=== PATIENT | male | born 1985 | race African-American/Black ===

== ENCOUNTER 2023-11-21 10:38 | Inpatient (IN) | payer BC, SELFPAY ==
[2023-11-21] VITALS (8 sets, daily range): BP systolic 150–170; BP diastolic 101–115; PULSE 76–101; RESP 13–20; TEMP 36.3–36.6; O2SAT 98–100; BMI 33.5
--- NOTE | ~2023-11-21 | MR_ITS ---
EXAMINATION: MR brain/brain stem wo/w con DATE: 11/22/2023 13:31 INDICATION: Arm and leg weakness with paresthesias. TECHNIQUE: Magnetic resonance imaging (MRI) of the brain and brainstem was performed without and with 20 mL MultiHance intravenous contrast. COMPARISON: Head CT 11/21/2023 FINDINGS: There is no intracranial hemorrhage, acute infarction, or abnormal intracranial mass lesion . The ventricles are normal in size. There is a mucous retention cyst in left sphenoid sinus. The orb its are normal. The mastoid air cells are normal. IMPRESSION: 1. Normal brain. Reviewed, dictated and finalized at location A. IMPRESSION: 1. Normal brain.
--- NOTE | ~2023-11-21 | MR_ITS ---
EXAMINATION: MR lumbar spine wo/w con DATE: 11/22/2023 13:31 INDICATION: Arm and leg weakness. Paresthesias. TECHNIQUE: Magnetic resonance imaging (MRI) of the lumbar spine was performed without and with 20 mL MultiHance intravenous contrast. COMPARISON: None FINDINGS: Bone alignment is normal. Vertebral body heights and intervertebral disc heights are normal . The distal spinal cord signal intensity is normal. The conus medullaris is at L1. The following dis c levels are specifically discussed: L1-L2: The disc does not extend beyond the endplate margin. There is mild bilateral facet joint osteo arthritis. There is no neural foraminal stenosis. There is no central canal stenosis. L2-L3: There is a left foraminal protrusion. There is mild bilateral facet joint osteoarthritis. Ther e is mild left neural foraminal stenosis. There is no central canal stenosis. L3-L4: The disc is mildly bulging. There is mild bilateral facet joint osteoarthritis. There is mild bilateral neural foraminal stenosis. There is no central canal stenosis. L4-L5: The disc is bulging. There is mild bilateral facet joint osteoarthritis. There is mild bilater al neural foraminal stenosis. There is no central canal stenosis. L5-S1: The disc is bulging. There is severe right and moderate left facet joint osteoarthritis. There is mild bilateral neural foraminal stenosis. There is mild central canal stenosis. IMPRESSION: 1. Mild lumbar spondylosis. Reviewed, dictated and finalized at location A. IMPRESSION: 1. Mild lumbar spondylosis.
--- NOTE | ~2023-11-21 | CT_ITS ---
EXAMINATION: CT cervical spine wo con DATE: 11/21/2023 11:17 INDICATION: Arm weakness. Numbness in the hands and feet. TECHNIQUE: Computed tomography (CT) of the cervical spine was performed without intravenous contrast. Automated exposure control and iterative reconstruction technique were employed. The dose-length pro duct was 636.83 mGy-cm. COMPARISON: None FINDINGS: There is 3 degrees levocurvature of cervical spine. There is mild kyphosis of cervical spin e. Vertebral body heights are normal. There is moderately decreased disc height at C2-C3 and mildly d ecreased disc height at C4-C5 and C5-C6. The following disc levels are specifically discussed: C2-C3: There is mild bilateral uncovertebral joint osteoarthritis. There is mild bilateral facet join t osteoarthritis. There is mild left neural foraminal stenosis. There is mild central canal stenosis. C3-C4: There is mild bilateral uncovertebral joint osteoarthritis. There is no facet joint osteoarthr itis. There is no neural foraminal stenosis. There is no central canal stenosis. C4-C5: There is no uncovertebral joint osteoarthritis. There is no facet joint osteoarthritis. There is no neural foraminal stenosis. There is no central canal stenosis. C5-C6: There is no uncovertebral joint osteoarthritis. There is mild bilateral facet joint osteoarthr itis. There is no neural foraminal stenosis. There is no central canal stenosis. C6-C7: There is no uncovertebral joint osteoarthritis. There is no facet joint osteoarthritis. There is no neural foraminal stenosis. There is no central canal stenosis. C7-T1: There is no uncovertebral joint osteoarthritis. There is mild bilateral facet joint osteoarthr itis. There is no neural foraminal stenosis. There is no central canal stenosis. IMPRESSION: 1. Mild cervical spondylosis. Reviewed, dictated and finalized at location A.
--- NOTE | ~2023-11-21 | XR_ITS ---
EXAMINATION: XR lumbar puncture diagnostic DATE: 11/23/2023 14:17 INDICATION: Neuromuscular weakness. TECHNIQUE: The procedure including the risks, benefits, and alternatives was discussed with the patie nt. Risks discussed included spinal headache, cerebrospinal fluid leak, bleeding, and infection. The patient understood the risks and agreed to proceed. A timeout was performed to verify the patient' s name, date of , and procedure to be performed. The skin overlying the L3-L4 level was prepped and draped in usual sterile fashion. Subcutaneous 1% lidocaine was used for local anesthesia. A 20 gauge spinal needle was advanced under fluoroscopic guidance. The needle was removed and the entry s ite was cleaned and dressed. There were no immediate complications. Fluoroscopy exposure time was 0. 1 minutes. The total number of images was 1. FINDINGS: Real-time fluoroscopy demonstrates the needle at the L3-L4 level. The opening pressure was 18 cm water (Normal range is variably defined as 6-20 cm water and up to 25 cm water in obese patient s. Pressure >25 cm water is one of the modified Dandy criteria for idiopathic intracranial hypertensi on). 14 mL of clear, colorless fluid was collected in 4 tubes. IMPRESSION: 1. Successful fluoro-guided lumbar puncture. Reviewed, dictated and finalized at location A.
--- NOTE | ~2023-11-21 | MR_ITS ---
EXAMINATION: MR thoracic spine wo/w con DATE: 11/22/2023 13:31 INDICATION: Arm and leg weakness with paresthesias. TECHNIQUE: Magnetic resonance imaging (MRI) of the thoracic spine was performed without and with 20 m L MultiHance intravenous contrast. COMPARISON: None FINDINGS: There is 5 degrees levocurvature of thoracic spine. There is mild chronic anterior wedging of T7-T12 vertebral bodies. Intervertebral disc heights are normal. The discs do not extend beyond th e endplate margins. There is multilevel mild facet joint osteoarthritis. No neural foraminal stenosis or central canal stenosis. The spinal cord signal intensity is normal. IMPRESSION: 1. Mild thoracic facet joint osteoarthritis. Reviewed, dictated and finalized at location A.
--- NOTE | ~2023-11-21 | MR_ITS ---
EXAMINATION: MR cervical spine wo/w con DATE: 11/22/2023 13:31 INDICATION: Arm and leg weakness with paresthesias. TECHNIQUE: Magnetic resonance imaging (MRI) of the cervical spine was performed without and with 20 m L MultiHance intravenous contrast. COMPARISON: CT cervical spine 11/21/2023 FINDINGS: There is mild kyphosis of upper cervical spine. Vertebral body heights and intervertebral d isc heights are normal. The spinal cord signal intensity is normal. The following disc levels are spe cifically discussed: C2-C3: There is a central extrusion. There is mild bilateral uncovertebral joint osteoarthritis. Ther e is mild bilateral facet joint osteoarthritis. There is mild left neural foraminal stenosis. There i s mild central canal stenosis with ventral indentation of the spinal cord. C3-C4: The disc does not extend beyond the endplate margin. There is no uncovertebral joint osteoarth ritis. There is no facet joint osteoarthritis. There is no neural foraminal stenosis. There is no matilda tral canal stenosis. C4-C5: The disc does not extend beyond the endplate margin. There is no uncovertebral joint osteoarth ritis. There is mild bilateral facet joint osteoarthritis. There is no neural foraminal stenosis. The re is no central canal stenosis. C5-C6: The disc does not extend beyond the endplate margin. There is no uncovertebral joint osteoarth ritis. There is mild right facet joint osteoarthritis. There is no neural foraminal stenosis. There i s no central canal stenosis. C6-C7: The disc does not extend beyond the endplate margin. There is mild bilateral uncovertebral luann nt osteoarthritis. There is mild bilateral facet joint osteoarthritis. There is mild right neural for aminal stenosis. There is no central canal stenosis. C7-T1: The disc does not extend beyond the endplate margin. There is no uncovertebral joint osteoarth ritis. There is mild bilateral facet joint osteoarthritis. There is no neural foraminal stenosis. The re is no central canal stenosis. IMPRESSION: 1. Mild cervical spondylosis. Reviewed, dictated and finalized at location A.
--- NOTE | ~2023-11-21 | CT_ITS ---
EXAMINATION: CT brain wo con DATE: 11/21/2023 11:16 INDICATION: Numbness in the hands and feet. TECHNIQUE: Computed tomography (CT) of the head was performed without intravenous contrast. The mA wa s adjusted according to patient size. Iterative reconstruction technique was employed. The dose-lengt h product was 681.00 mGy-cm. COMPARISON: None FINDINGS: There is no intracranial hemorrhage, acute infarction, or abnormal intracranial mass lesion . The ventricles are normal in size. There is mucosal thickening in the paranasal sinuses. The orbits are normal. The mastoid air cells are normal. IMPRESSION: 1. Normal brain. Reviewed, dictated and finalized at location A. IMPRESSION: 1. Normal brain.
[2023-11-21 11:34] LABS: Basophils Percent Auto 0.4 % (0.2-1.2); Eosinophils Percent Auto 0.1 % (0-4.4); Hematocrit 49.8 % (42.0-52.0); Hemoglobin 16.2 g/dL (14.0-18.0); Immature Granulocyte Absolute 0.03 K/mm3 (0.00-0.031); Immature Granulocyte Percent A 0.3 % (0-0.5); Lymphocytes Absolute Auto 1.27 K/mm3 (0.9-3.2); Lymphocytes Percent Auto 12.3 % (18.3-44.2); Mean Corpuscular HGB Conc 32.5 g/dl (32-36); Mean Corpuscular Hemoglobin 27.6 pg (26-34); Mean Platelet Volume 11.8 fl (7.4-10.4); Monocytes Absolute Auto 0.7 K/mm3 (0.1-0.6); Monocytes Percent Auto 6.8 % (2.6-8.5); Neutrophils Absolute Auto 8.3 K/mm3 (1.3-6.7); Neutrophils Percent Auto 80.1 % (45.5-73.1); Platelet Count Result 199 k/mm3 (150-375); Red Blood Count 5.86 M/mm3 (4.6-6.20); Red Cell Distribution Width 14.3 % (11.5-14.5); White Blood Count 10.3 K/mm3 (4.5-10.0)
[2023-11-21 11:47] LABS: Alanine Aminotransferase 52 U/L (6-50); Albumin Level 4.4 g/dL (3.5-5.1); Alkaline Phosphatase 74 U/L (38-126); Anion Gap 6 mmol/L (8-16); Aspartate Amino Transferase 52 U/L (17-59); Blood Urea Nitrogen 16 mg/dL (9-20); Calcium 9.6 mg/dL (8.4-10.2); Carbon Dioxide 25 mmol/L (22-30); Chloride 107 mmol/L (98-107); Estimated CRCL calculation 104 ml/min; Estimated Glomerular Filt Rate > 60; Glucose 91 mg/dL (65-110); Magnesium 2.2 mg/dL (1.6-2.3); Potassium 4.4 mmol/L (3.4-5.0); Sodium 138 mmol/L (137-145)
--- NOTE | 2023-11-21 13:07 | ED.NEUROSD ---
HPI - Neuro Symptoms/Deficit General Chief Complaint: Neuro Symptoms/Deficit Stated Complaint: numbness/tingling arms and legs Time Seen by Provider: 11/21/23 10:49 History of Present Illness HPI Narrative: Patient is a 38-year-old male who presents ER with numbness and weakness. Patient reports for last week he has been having tingling sensation in his hands and feet bilaterally. Was evaluated at [facility] without any abnormality being found. Patient is not diabetic. He reports he has become more weak recently and he fell today. He is unable to get himself up off the ground did weakness and had to crawl to a chair to be able to get up off the floor. He feels mostly weak in his hips and his upper arms. No family history of MS. Related Data Home Medications Medication Instructions Recorded Confirmed losartan 100 mg tablet 100 mg PO DAILY 11/21/23 11/21/23 Allergies Allergy/AdvReac Type Severity Reaction Status Date / Time No Known Allergies Allergy Verified 11/21/23 14:33 Review of Systems Review of Systems: All systems reviewed & are unremarkable except as noted in HPI and below Constitutional: Constitutional: Reports no additional constitutional complaints ENT: Reports system reviewed and no additional complaints, except as documented Cardiovascular: Cardiovascular: Reports no additional cardiovascular complaints Respiratory: Respiratory: Reports no additional respiratory complaints Gastrointestinal: Gastrointestinal: Reports no additional gastrointestinal complaints Musculoskeletal: Musculoskeletal: Denies arthralgias and Denies joint swelling Comments: Arm and leg weakness Neurologic: Denies syncope, Denies headache(s), Denies focal weakness and Reports weakness Comments: paresthesias of the hands and feet [facility] Past Medical History Medical History (Updated 11/21/23 @ 17:57 by Luke Varela MD) Hypertension Surgical History Surgical History (Updated 11/21/23 @ 15:19 by Jane Nichols PA-C) No history of previous surgery Family History Family History Father Diabetes mellitus Hypertension Mother Hypertension Social History Social History (Updated 11/21/23 @ 15:19 by Jane Nichols PA-C) Social History: Surrogate medical decision maker: Ilda Lozano, mother. Code status: Full code. Smoking status: Never smoker Alcohol intake: current Drinks per week: 4 Substance use: never Do You Feel Safe in your Home?: Yes Lack of Transportation: No Lack of Food: Never True Current Housing: I Have Housing Concerned About Future Housing: No Difficulty Paying Gas/Electric Bills: No Difficulty Paying for Meds: No Currently Unemployed: No Education: Associate Degree Difficulty w/ Childcare or Family Care: No Additional living arrangements comments: Lives in [place]. Additional occupation/education comments: Works for [employer]. Spiritual care concerns: No Exam Narrative: GENERAL: Well-appearing, well-nourished, and in no acute distress. HEAD: Normocephalic, atraumatic. ENT: Mucous membranes moist. NECK: Supple. CHEST: Clear to auscultation. No respiratory distress. HEART: Regular rate and rhythm. Normal peripheral pulses. ABDOMEN: Soft, nontender, nondistended EXTREMITIES: Normal range of motion. No edema. SKIN: Warm, dry, no rash. NEURO: Alert and oriented x3. no decreased pinprick sensation to the hands or feet. Patient does have 3/5 strength in the hands with gripping, the elbows with flexion extension, and in the hips. Normal strength at the ankles and knees bilaterally. PSYCH: Normal mood and affect. Course Course Emergency Course: Patient with concerning story. Will admit for observation. He will need MRI of his brain and spine. He may require Neurology consultation tomorrow when Neurology is present. Vital Signs Vital signs: V
--- NOTE | 2023-11-21 13:27 | PC.NURSE ---
Spoke with MRI to confirm pt is being admitted.
--- NOTE | 2023-11-21 14:11 | ADMGEN ---
This patient, Anton Lozano, was admitted to 2 Medical Room 260-. Patient/family oriented to hospital policies and general routines including ID bracelet, bed and alarms, visiting hours, pain management, procedures, bathroom and other care routines, personal items, smoking policy, room service/diet, and visiting hours. Information on how to activate the Rapid Response Team has been discussed. Patient/Family are encouraged to report perceived risks to care and to ask questions if they do not understand what they are told or what they should do.
--- NOTE | 2023-11-21 15:16 | PM.IMHP ---
H&P: HPI History of Present Illness Date/Time: 11/21/23 15:15 Chief Complaint: Muscle weakness and numbness/tingling in the hands and feet. Narrative: This is a very pleasant 38-year-old male with hypertension who presented to the emergency department for evaluation of muscle weakness and numbness/tingling in hands and feet. The patient provides the following history. About 2 weeks ago he woke from sleep and noticed that his hands were tingling. He then stood up out of bed at which time he realized that his toes were tingling on both feet as well. About 1 week thereafter he noticed that his hands were a bit weak (for instance he was having difficulties with writing and opening bottles) and that his upper legs seemed to be getting weak. For instance 1 day he was trying to get out of the shower and had difficulties getting his legs up over the bathtub due to weakness. He has had 2 falls and other near falls due to weakness in his legs. He has noticed some stiffness in his leg muscles and hands as well. Hamstrings have been twitching and cramping. He has perhaps mild aching in the muscles but is difficult for him to distinguish that from the paresthesias and weakness. He is afraid that he will fall with walking due to weakness and stiffness. He was evaluated at a local urgent care and in the ED at [facility] for the symptoms and he was told to follow-up with his doctor but unfortunately he cannot get an appointment until sometime in January. He has not had any lab work or imaging done as of yet. He had COVID in April 2023 with lingering fatigue for several weeks but that completely resolved. He has not had any recent travel and denies tick and mosquito bites. He has not had any recent falls or trauma. He has mild neck pain and right-sided headache but that is nothing significant or necessarily new for him. He has been experiencing sweats and reports that his hands and feet are cool and diaphoretic. Appetite has not been great however he admits that he is worried about the symptoms he has been experiencing and thinks it is due to that. He denies urinary retention and bowel incontinence. There is no saddle anesthesia. He denies bulbar symptoms. He denies chest and pleuritic pain, palpitations, fluttering, sensations of racing heart. No rashes or joint pain or swelling. No recent vaccinations. No personal or family history of malignancy, multiple sclerosis, autoimmune diseases, or muscular dystrophy. Review of Systems Review of Systems: Twelve systems were reviewed and are negative except for as per HPI. [facility] Past Medical History Medical History (Updated 11/21/23 @ 17:57 by Luke Varela MD) Hypertension Surgical History Surgical History (Updated 11/21/23 @ 21:31 by Jane Nichols PA-C) History of wisdom tooth extraction Family History Family History Father Diabetes mellitus Hypertension Mother Hypertension Social History Social History (Updated 11/21/23 @ 15:19 by Jane Nichols PA-C) Social History: Surrogate medical decision maker: Ilda Lozano, mother. Code status: Full code. Smoking status: Never smoker Alcohol intake: current Drinks per week: 4 Substance use: never Do You Feel Safe in your Home?: Yes Lack of Transportation: No Lack of Food: Never True Current Housing: I Have Housing Concerned About Future Housing: No Difficulty Paying Gas/Electric Bills: No Difficulty Paying for Meds: No Currently Unemployed: No Education: Associate Degree Difficulty w/ Childcare or Family Care: No Additional living arrangements comments: Lives in [place]. Additional occupation/education comments: Works for [employer]. Spiritual care concerns: No Meds Home Medications and Allergies Home Medications Medication Instructions Recorded Confirmed Type losartan 100 mg tablet 100 mg PO DAILY 11/21/23 11/21/23 Hist
--- NOTE | 2023-11-21 15:21 | ECHO_ITS ---
Patient Info Name: Anton Lozano Age: 38 years : 1985 Gender: Male Ht: 71 in Wt: 260 lbs BSA: 2.47 m2 HR: 78 bpm BP: 170 / 107 mmHg Technical Quality: Fair Exam Date: 11/21/2023 4:18 PM Exam Location: Echo Lab Exam Room: 260 Patient Status: Inpatient Admit Date: 11/21/2023 Staff Ordering Physician: Jane Nichols PA-C Attending Provider: Fritz Skinner DO Referring Physician: Magdalena BHAKTA; Exam Type: CA echo doppler color flow Study Info Indications - htn paresthsis Complete two-dimensional, color flow and Doppler transthoracic echocardiogram is performed. Summary 1. Complete two-dimensional, color flow and Doppler transthoracic echocardiogram is performed. 2. Left ventricular chamber dimension is normal. 3. Left ventricular systolic function is normal, estimated at 65-70%. 4. There is moderate concentric increased left ventricular wall thickness. 5. The left ventricular diastolic function is grade I diastolic dysfunction. 6. E/e' 10 is mildly elevated. 7. There is trace tricuspid valve regurgitation. 8. No pulmonary hypertension, estimated pulmonary arterial systolic pressure is 39 mmHg. Left Ventricle E/e' 10 is mildly elevated. Left ventricular chamber dimension is normal. Left ventricular systolic function is normal, estimated at 65-70%. There is moderate concentric increased left ventricular wall thickness. The left ventricular diastolic function is grade I diastolic dysfunction. Right Ventricle Right ventricular chamber dimension is normal. Right ventricular systolic function is normal. Left Atria Left atrial chamber dimension is normal. Right Atria Right atrial chamber dimension is normal. Aortic Valve The aortic valve is trileaflet. There is no aortic valve stenosis. There is no aortic valve regurgitation. Pulmonic Valve There is no pulmonic regurgitation. Mitral Valve There is no mitral valve stenosis. There is no mitral valve regurgitation. Tricuspid Valve There is trace tricuspid valve regurgitation. No pulmonary hypertension, estimated pulmonary arterial systolic pressure is 39 mmHg. Pericardium/Pleural There is no pericardial effusion. Inferior Vena Cava Normal inferior vena cava with >50% collapse upon inspiration consistent with normal right atrial pressure, 5 mmHg. Aorta The aortic root size at the sinus of Valsalva is normal. Left Ventricular Outflow Tract Name Value Normal LVOT 2D LVOT Diameter 2.1 cm LVOT Doppler LVOT Peak Gradient 5 mmHg LVOT Mean Gradient 4 mmHg LVOT VTI 21 cm LVOT VTI/AV VTI Ratio 0.9 LVOT Stroke Volume 75 ml LVOT CO 20.2 l/min LVOT CI 8.2 l/min/m2 Pulmonic Valve Name Value Normal RVOT Doppler RVOT Peak Gradient 2 mmHg
[2023-11-21 15:45] LABS: CRP < 0.5 mg/dL (<1.0); Creatine Kinase 415 U/L (55-170); Lactate Dehydrogenase 206 U/L (120-246)
[2023-11-21 16:44] LABS: Erythrocyte Sedimentation Rate 6 mm/hr (0-20)
[2023-11-22] VITALS (11 sets, daily range): BP systolic 125–163; BP diastolic 81–109; PULSE 68–102; RESP 16–20; TEMP 36.4–37; O2SAT 94–100
--- NOTE | 2023-11-22 08:02 | PM.IMPN ---
Progress Note: A&P Assessment and Plan (1) Paresthesias: Code(s): R20.2 - Paresthesia of skin Status: Acute Assessment and Plan: 11/22/2023: patient reporting weakness and numbness in his hands and feet for the past 2 weeks neurology consult plan for MRI of brain/ brainstem, cervical spine, lumbar spine, and thoracic spine. Aldolase pending, CK for 15, C reactive protein less than 0.5, lactate dehydrogenase 206, TSH 1.[address] negative cervical spine CT showing mild cervical spondylosis continuous cardiac monitoring neurochecks Q 4 hours Will check HIV panel, Lipid panel, Hgb A1C, Magnesium, lyme disease and west nile virus Could benefit from lumbar puncture, will defer to Neurology for this. Patient reports night sweats, headache, neck stiffness, weakness, numbness and tingling in feet and hands. PT and OT ordered to eval and treat (2) Muscle weakness: Code(s): M62.81 - Muscle weakness (generalized) Status: Acute Assessment and Plan: see above (3) Urinary retention: Code(s): R33.9 - Retention of urine, unspecified Status: Acute Assessment and Plan: 11/22/2023: Patient unable to void this morning, nursing did bladder scan and noted 275ml of urine in bladder. They did straight cath him x1 and met a little resistance at the prostate. Continue to monitor for urinary retention Consider flomax Could be due to enlarged prostate. (4) Hypertension: Code(s): I10 - Essential (primary) hypertension Status: Chronic Assessment and Plan: 11/22/2023: blood pressure ranging 140/90 to 152/103 continue losartan 100 mg daily Time Spent With Patient Time with patient: 25 - 35 minutes Subjective Date/time seen: 11/22/23 08:02 Interval history: This is a 38-year-old male who presented to the hospital with muscle weakness and numbness/ tingling in the hands and feet. Patient reporting increased weakness of the last 2 weeks. He has sought care at [facility] and in urgent care for similar symptoms. Patient states that he noticed weakness over the past 2 weeks that has progressively gotten worse. He states that it feels like his legs will give out on him. He has associated numbness and tingling in his hands and feet as well. He denies any recent illness, fever chills, lightheadedness, dizziness, visual changes, nausea, vomiting, diarrhea, abdominal pain, chest pain, shortness of breath. He denies any tick or mosquito bites. He denies any pets in the home. 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 He does state that the back of his neck has been feeling tight and has noticed lower back pain on occasion. Workup in the hospital includes head CT which shows a normal brain. Cervical spine CT which shows mild cervical spondylosis. echocardiogram showing normal LV systolic function with an estimated EF of 65-70%, grade 1 diastolic dysfunction. initial labs show a white blood cell count of 10.3, ALT 52, total CK 415, TSH 1.79, Aldolase is pending. Plan for MRI of the brain and brainstem, cervical spine, lumbar spine, thoracic spine today. Neurology consulted. Blood pressures ranging 150/115-170/101. Patient takes Losartan 100mg daily for his hypertension and he was continued on that here. Blood pressure down to 140/90. Nursing reported that he was having trouble with urinating today. They did a bladder scan that noted about 275ml of urine in the bladder. They did do a straight cath on him and met a little resistance going in but was able to drain his bladder. We will likely start flomax on him after Neuro sees patient for urinary retention. Review of Systems Review of Systems: Twelve systems were reviewed and are negative except for as per HPI. All systems reviewed & are unremarkable except as noted in HPI and below Constitutional: Constitutional: Reports as per HPI and Reports no additional constitutional complaints Eyes: Eyes: Reports a
[2023-11-22] MEDS: LOSARTAN POTASSIUM 100 MG TABLET PO (08:07)
[2023-11-22 09:37] LABS: Basophils Absolute Auto 0.1 K/mm3 (0.0-0.1); Basophils Percent Auto 0.5 % (0.2-1.2); Eosinophils Absolute Auto 0.1 K/mm3 (0-0.3); Eosinophils Percent Auto 0.6 % (0-4.4); Hematocrit 50.1 % (42.0-52.0); Immature Granulocyte Absolute 0.02 K/mm3 (0.00-0.031); Immature Granulocyte Percent A 0.2 % (0-0.5); Lymphocytes Absolute Auto 2.32 K/mm3 (0.9-3.2); Lymphocytes Percent Auto 24.7 % (18.3-44.2); Mean Corpuscular HGB Conc 31.9 g/dl (32-36); Mean Corpuscular Hemoglobin 27.5 pg (26-34); Mean Corpuscular Volume 86.1 fl (80-100); Mean Platelet Volume 11.7 fl (7.4-10.4); Monocytes Absolute Auto 0.8 K/mm3 (0.1-0.6); Monocytes Percent Auto 8.7 % (2.6-8.5); Neutrophils Absolute Auto 6.1 K/mm3 (1.3-6.7); Neutrophils Percent Auto 65.3 % (45.5-73.1); Platelet Count Result 194 k/mm3 (150-375); Red Blood Count 5.82 M/mm3 (4.6-6.20); Red Cell Distribution Width 14.6 % (11.5-14.5); White Blood Count 9.4 K/mm3 (4.5-10.0)
[2023-11-22 10:06] LABS: Alanine Aminotransferase 51 U/L (6-50); Albumin Level 4.3 g/dL (3.5-5.1); Alkaline Phosphatase 72 U/L (38-126); Anion Gap 6 mmol/L (8-16); Aspartate Amino Transferase 60 U/L (17-59); Bilirubin,Total 1.3 mg/dL (0.2-1.3); Blood Urea Nitrogen 20 mg/dL (9-20); Calcium 9.5 mg/dL (8.4-10.2); Carbon Dioxide 27 mmol/L (22-30); Chloride 106 mmol/L (98-107); Estimated CRCL calculation 85 ml/min; Estimated Glomerular Filt Rate > 60; Glucose 103 mg/dL (65-110); Potassium 4.3 mmol/L (3.4-5.0); Sodium 139 mmol/L (137-145)
--- NOTE | 2023-11-22 10:15 | WPDNEURCNPN ---
Consult date: 11/22/23 HPI: Anton Lozano is a 38 year old male has been admitted to the hospital through the emergency room with the complaints of numbness and weakness in his hands and feet bilaterally. Reportedly he was evaluated centers with hospital where no abnormalities were found and patient is also not diabetic. Recently he has become more weak and day of visit to the ER he fell down and was unable to get himself up off the ground and had to crawl to a chair feels mostly weak in his hips and in his upper extremities. He has been taking losartan 100mg daily, he is not allergic to any medications, he does have ongoing history of hypertension, has never had any surgery, he has never smoker but currently alcohol intake or 4 drinks per week, initial exam in the emergency room documented the weakness in the hands and also in the hips. His vital signs were normal except pulse rate of 101 blood pressure of 153/103 and repeat 170/107, CBC was normal, BMP was normal, and ALT was borderline 52, CT scan of cervical spine revealed mild cervical spondylosis and CT of the head was normal with no hydrocephalus or subdurals. Subsequently it was documented that about 2 weeks ago he woke up from sleep and noted his hands were tingling and when he stood up out of the bed his toes were tingling on both feet subsequently he was having difficulties in writing and opening bottles and also started having trouble getting out of the shower and getting his legs up over the bathtub he has fallen twice he has had patient has done did complain of mild neck pain and right-sided headache complain of his hand being diaphoretic and cold he gave no history of bowel or bladder incontinence and no history of saddle anaesthesia, PMFSH Past Medical History Medical History (Updated 11/21/23 @ 17:57 by Luke Varela MD) Hypertension Surgical History Surgical History (Updated 11/21/23 @ 21:31 by Jane Nichols PA-C) History of wisdom tooth extraction Family History Family History Father Diabetes mellitus Hypertension Mother Hypertension Social History Social History (Updated 11/21/23 @ 15:19 by Jane Nichols PA-C) Social History: Surrogate medical decision maker: Ilda Lozano, mother. Code status: Full code. Smoking status: Never smoker Alcohol intake: current Drinks per week: 4 Substance use: never Do You Feel Safe in your Home?: Yes Lack of Transportation: No Lack of Food: Never True Current Housing: I Have Housing Concerned About Future Housing: No Difficulty Paying Gas/Electric Bills: No Difficulty Paying for Meds: No Currently Unemployed: No Education: Associate Degree Difficulty w/ Childcare or Family Care: No Additional living arrangements comments: Lives in [place]. Additional occupation/education comments: Works for [employer]. Spiritual care concerns: No Meds Home Medications and Allergies Home Medications Medication Instructions Recorded Confirmed Type losartan 100 mg tablet 100 mg PO DAILY 11/21/23 11/21/23 History Allergies Allergy/AdvReac Type Severity Reaction Status Date / Time No Known Allergies Allergy Verified 11/21/23 14:33 Vital Signs Vital Signs - 24 hr 11/21/23 10:40 11/21/23 11:00 11/21/23 11:30 Temperature 36.3 C L Pulse Rate 101 H 85 80 Respiratory Rate 20 16 13 Blood Pressure 153/103 H 161/114 H 160/108 H Pulse Oximetry 100 99 98 Oxygen Delivery Room Air 11/21/23 13:23 11/21/23 14:20 11/21/23 16:30 Temperature 36.4 C Pulse Rate 78 84 76 Respiratory Rate 20 16 Blood Pressure 150/115 H 170/107 H Pulse Oximetry 100 98 Oxygen Delivery 11/21/23 21:32 11/21/23 20:00 11/21/23 20:00 Temperature 36.6 C Pulse Rate 84 79 Respiratory Rate 18 Blood Pressure 163/101 H Pulse Oximetry 98 Oxygen Delivery Room Air 11/22/23 00:00 11/22/23 04:00 11/22/23 05:29
--- NOTE | 2023-11-22 11:36 | PCPTNOTE ---
Attempted PT evaluation, pt off the unit for MRI. Will follow.
[2023-11-22 12:35] LABS: Magnesium 2.3 mg/dL (1.6-2.3)
[2023-11-23] VITALS (11 sets, daily range): BP systolic 137–159; BP diastolic 82–107; PULSE 71–105; RESP 16–24; TEMP 36–36.4; O2SAT 97–99
[2023-11-23 05:46] LABS: Basophils Percent Auto 0.4 % (0.2-1.2); Eosinophils Absolute Auto 0.1 K/mm3 (0-0.3); Eosinophils Percent Auto 0.7 % (0-4.4); Hematocrit 49.8 % (42.0-52.0); Hemoglobin 15.8 g/dL (14.0-18.0); Immature Granulocyte Absolute 0.04 K/mm3 (0.00-0.031); Immature Granulocyte Percent A 0.5 % (0-0.5); Lymphocytes Absolute Auto 2.29 K/mm3 (0.9-3.2); Lymphocytes Percent Auto 26.8 % (18.3-44.2); Mean Corpuscular HGB Conc 31.7 g/dl (32-36); Mean Corpuscular Hemoglobin 27.7 pg (26-34); Mean Corpuscular Volume 87.4 fl (80-100); Mean Platelet Volume 11.3 fl (7.4-10.4); Monocytes Absolute Auto 0.8 K/mm3 (0.1-0.6); Monocytes Percent Auto 9.6 % (2.6-8.5); Neutrophils Absolute Auto 5.3 K/mm3 (1.3-6.7); Platelet Count Result 198 k/mm3 (150-375); Red Cell Distribution Width 14.4 % (11.5-14.5); White Blood Count 8.5 K/mm3 (4.5-10.0)
[2023-11-23 05:50] LABS: Alanine Aminotransferase 52 U/L (6-50); Albumin Level 4.2 g/dL (3.5-5.1); Alkaline Phosphatase 67 U/L (38-126); Anion Gap 4 mmol/L (8-16); Aspartate Amino Transferase 48 U/L (17-59); Bilirubin,Total 1.2 mg/dL (0.2-1.3); Blood Urea Nitrogen 19 mg/dL (9-20); Calcium 9.7 mg/dL (8.4-10.2); Carbon Dioxide 29 mmol/L (22-30); Chloride 106 mmol/L (98-107); Cholesterol 214 mg/dL (0-200); Estimated CRCL calculation 78 ml/min; Estimated Glomerular Filt Rate > 60; Glucose 90 mg/dL (65-110); HDL Direct 39 mg/dL; Potassium 4.4 mmol/L (3.4-5.0); Sodium 139 mmol/L (137-145); Triglycerides 126 mg/dL (<150)
[2023-11-23 06:01] LABS: LDL Cholesterol Direct 132 mg/dL
[2023-11-23 06:30] LABS: HIV 1/2 Ab P24 Ag Result Negative (Negative)
[2023-11-23] MEDS: LOSARTAN POTASSIUM 100 MG TABLET PO (07:59)
--- NOTE | 2023-11-23 11:21 | WPDNEURCNPN ---
Assessment and Plan Assessment and plan (1) Muscle weakness: Code(s): M62.81 - Muscle weakness (generalized) Status: Acute Plan History of progressive weakness with negative MRI of the brain cervical thoracic and lumbar spine will need the spinal fluid studies to rule out the possibility of acute versus subacute infection or else the demyelinating phenomena or further recommendations will be made accordingly. Consult date: 11/23/23 HPI: Anton Lozano is a 38 year old male Has been admitted to the hospital through the emergency room where he presented for the evaluation of muscle weakness , numbness and tingling sensation in hands and feet. Reportedly about 2 weeks ago he woke up from sleep and noted that his hands were tingling then stood up out of the bed at that time he realized that his toes were tingling as wel,l about 1 week thereafter he noted his hands were bit weaker as he was having difficulty with writing and opening bottles and upper legs also seem to be weak he was trying to get out of the shower and had difficulties getting his lower extremities over the bathtub due to the weakness and sustained 2 falls. He also complained of twitching and cramping in his lower extremities along with the aching sensation ,he went to the local urgent care at [facility], was advised to follow-up with But unfortunately could not get an appointment until sometimes in January ,he has not had any lab work or imaging as yet. He had COVID in April of 2023 with subsequent lingering fatigue sensation which has now completely resolved, he gave no history of recent or remote fall, did complain of mild neck discomfort and right-sided headache but not very significant his hands and feet are cool and diaphoretic he gave no history of bowel or bladder dysfunction, no history of difficulties in swallowing, no history of difficulties in controlling the bowel or numbness around that area. He is never a smoker drinks at least 4 drinks per week, not allergic to any medication and has been taking only losartan 100mg daily. on initial evaluation in the emergency room he was afebrile blood pressure 153/103 repeat 150/115 general physical exam was normal and neurological examination documented difficulties raising the upper extremities and lower extremities strength 4/5 negative Babinski bilaterally, CBC was normal ,BMP was normal ,hepatic enzymes with ALT 52 CT of the head negative CT of the cervical spine with cervical spondylosis ,considering the possibility of the space-occupying lesion versus the spinal cord involvement intrinsic disease or to rule out the possibility of the obvious tumor or demyelinating disease,mri were done, brain MRI was normal so as the lumbar spine MRI except mild lumbar spondylos ,cervical MRI revealed no intrinsic or extrinsic disease except the mild cervical spondylosis and thoracic MRI is negative as well. 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
[2023-11-23 12:33] LABS: Prothrombin Time 13.1 Seconds (11.1-14.7)
[2023-11-23 14:31] LABS: Glucose CSF 61 mg/dL (40-70); Total Protein CSF 50 mg/dL (12-60)
--- NOTE | 2023-11-23 14:54 | P.PNIM_ITS ---
Progress Note: A&P Assessment and Plan (1) Paresthesias: Code(s): R20.2 - Paresthesia of skin Status: Acute Assessment and Plan: * patient reporting weakness and numbness in his hands and feet for the past 2 weeks * neurology consulted - lumbar puncture with labs pending * MRI of brain/ brainstem, cervical spine, lumbar spine, and thoracic spine unrevealing * Aldolase pending, CK for 15, CRP less than 0.5, lactate dehydrogenase 206, TSH 1.79 * head CT negative * cervical spine CT showing mild cervical spondylosis * continuous cardiac monitoring * neurochecks Q 4 hours * HIV panel negative * Lipid panel elevated * Hgb A1C 5.0 Magnesium WNL * lyme disease and west nile virus pending * PT and OT ordered to eval and treat (2) Muscle weakness: Code(s): M62.81 - Muscle weakness (generalized) Status: Acute Assessment and Plan: see above (3) Urinary retention: Code(s): R33.9 - Retention of urine, unspecified Status: Acute Assessment and Plan: * Patient unable to void this morning, nursing did bladder scan and noted 275ml of urine in bladder. They did straight cath him x1 and met a little resistance at the prostate. * Continue to monitor for urinary retention * Consider Flomax * Could be due to enlarged prostate. (4) Hypertension: Code(s): I10 - Essential (primary) hypertension Status: Chronic Assessment and Plan: * continue losartan 100 mg daily (5) Hyperlipidemia: Code(s): E78.5 - Hyperlipidemia, unspecified Status: Acute Assessment and Plan: * lipid panel showed total cholesterol 214 * LDL 132 * triglycerides 126 * start on Lipitor 20 mg daily Subjective Date/time seen: 11/23/23 14:54 Interval history: Patient reports continued tingling sensation and difficulty with muscle strength in his hands and legs bilaterally. He denies any vision changes, pain or SOB or chest pain. Neurology is following and planning on a spinal tap today with labs from CSF pending. Review of Systems Review of Systems: All systems reviewed & are unremarkable except as noted in HPI and below Exam Narrative: General: In no acute distress, well nourished Head: atraumatic, no encephalopathy Eyes: EOMI, PERRLA, sclera clear, denies vision changes ENT: moist mucous membranes Neck: supple, no JVD, no adenopathy, trachea midline Cardiac:RRR. No murmur, gallops or friction rubs, peripheral pulses intact. Respiratory: Lungs clear to auscultation Gastrointestinal: soft, non-distended, non-tender, normoactive bowel sounds. Extremities: moves all extremities well, no edema, good ROM, strength 4/5 Skin: clean, dry, intact. No wounds or lesions. Neuro: Alert and oriented x4, cranial nerves intact, no neuro deficits. Psych: normal mood, normal affect, interactive Objective Data Vital Signs Vital Signs: Vital Signs - 24 hr 11/22/23 16:28 11/22/23 16:00 11/22/23 21:24 Temperature 97.7 F Pulse Rate 91 88 Respiratory Rate 20 Blood Pressure 145/109 H Pulse Oximetry 94 97 Oxygen Delivery Room Air 11/22/23 20:30 11/22/23 20:30 11/22/23 23:00 Temperature Pulse Rate 85 Respiratory Rate Blood Pressure 144/96 H Pulse Oximetry Oxygen Delivery Room Air
--- NOTE | 2023-11-23 14:54 | PM.IMPN ---
Progress Note: A&P Assessment and Plan (1) Paresthesias: Code(s): R20.2 - Paresthesia of skin Status: Acute Assessment and Plan: patient reporting weakness and numbness in his hands and feet for the past 2 weeks neurology consulted - lumbar puncture with labs pending MRI of brain/ brainstem, cervical spine, lumbar spine, and thoracic spine unrevealing Aldolase pending, CK for 15, CRP less than 0.5, lactate dehydrogenase 206, TSH 1.[address] negative cervical spine CT showing mild cervical spondylosis continuous cardiac monitoring neurochecks Q 4 hours HIV panel negative Lipid panel elevated Hgb A1C 5.0 Magnesium WNL lyme disease and west nile virus pending PT and OT ordered to eval and treat (2) Muscle weakness: Code(s): M62.81 - Muscle weakness (generalized) Status: Acute Assessment and Plan: see above (3) Urinary retention: Code(s): R33.9 - Retention of urine, unspecified Status: Acute Assessment and Plan: Patient unable to void this morning, nursing did bladder scan and noted 275ml of urine in bladder. They did straight cath him x1 and met a little resistance at the prostate. Continue to monitor for urinary retention Consider Flomax Could be due to enlarged prostate. (4) Hypertension: Code(s): I10 - Essential (primary) hypertension Status: Chronic Assessment and Plan: continue losartan 100 mg daily (5) Hyperlipidemia: Code(s): E78.5 - Hyperlipidemia, unspecified Status: Acute Assessment and Plan: lipid panel showed total cholesterol 214 LDL 132 triglycerides 126 start on Lipitor 20 mg daily Subjective Date/time seen: 11/23/23 14:54 Interval history: Patient reports continued tingling sensation and difficulty with muscle strength in his hands and legs bilaterally. He denies any vision changes, pain or SOB or chest pain. Neurology is following and planning on a spinal tap today with labs from CSF pending. Review of Systems Review of Systems: All systems reviewed & are unremarkable except as noted in HPI and below Exam Narrative: General: In no acute distress, well nourished Head: atraumatic, no encephalopathy Eyes: EOMI, PERRLA, sclera clear, denies vision changes ENT: moist mucous membranes Neck: supple, no JVD, no adenopathy, trachea midline Cardiac:RRR. No murmur, gallops or friction rubs, peripheral pulses intact. Respiratory: Lungs clear to auscultation Gastrointestinal: soft, non-distended, non-tender, normoactive bowel sounds. Extremities: moves all extremities well, no edema, good ROM, strength 4/5 Skin: clean, dry, intact. No wounds or lesions. Neuro: Alert and oriented x4, cranial nerves intact, no neuro deficits. Psych: normal mood, normal affect, interactive Objective Data Vital Signs Vital Signs: Vital Signs - 24 hr 11/22/23 16:28 11/22/23 16:00 11/22/23 21:24 Temperature 97.7 F Pulse Rate 91 88 Respiratory Rate 20 Blood Pressure 145/109 H Pulse Oximetry 94 97 Oxygen Delivery Room Air 11/22/23 20:30 11/22/23 20:30 11/22/23 23:00 Temperature Pulse Rate 85 Respiratory Rate Blood Pressure 144/96 H Pulse Oximetry Oxygen Delivery Room Air 11/23/23 00:00 11/23/23 03:24 11/23/23 04:00 Temperature 96.8 F L Pulse Rate 86 71 73 Respiratory Rate 20 Blood Pressure 137/87 Pulse Oximetry 98 Oxygen Delivery 11/23/23 08:01 11/23/23 08:00 11/23/23 08:00 Temperature Pulse Rate 87 Respiratory Rate Blood Pressure Pulse Oximetry 98 Oxygen Delivery Room Air Room Air 11/23/23 12:00 11/23/23 13:42 11/23/23 14:13 Temperature Pulse Rate 105 H 99 97 Respiratory Rate 16 24 H Blood Pressure 159/107 H 146/101 H Pulse Oximetry 99 97 Oxygen Delivery 11/23/23 14:39 Temperature 97.6 F Pulse Rate 84 Respiratory Rate 16 Blood Pressure 148/82 H Pulse Oximetry 99 Oxygen D
[2023-11-23 15:38] LABS: Appearance CSF Clear (Clear); CSF source CSF; Color CSF Colorless (Colorless)
[2023-11-23 15:40] LABS: Lymphocytes CSF 92 % (40-80); Monocytes CSF 8 % (15-45); Neutrophils CSF 0 % (0-6); Nucleated Cell CSF 1 /uL (0-5); Red Blood Cell CSF 1 (0-2)
[2023-11-23] MEDS: ACETAMINOPHEN 325 MG TABLET 650 MG PO (17:43)
[2023-11-24] VITALS (14 sets, daily range): BP systolic 131–153; BP diastolic 91–109; PULSE 69–107; RESP 16–21; TEMP 35.9–36.6; O2SAT 99–100
[2023-11-24] MEDS: SODIUM CHLOR 3% 15 ML NEB (RESPIRATORY THERAPY) 6 ML INHALATION (05:44)
[2023-11-24 06:28] LABS: Basophils Absolute Auto 0.1 K/mm3 (0.0-0.1); Basophils Percent Auto 0.6 % (0.2-1.2); Eosinophils Absolute Auto 0.1 K/mm3 (0-0.3); Eosinophils Percent Auto 0.9 % (0-4.4); Hematocrit 50.3 % (42.0-52.0); Hemoglobin 15.8 g/dL (14.0-18.0); Immature Granulocyte Absolute 0.03 K/mm3 (0.00-0.031); Immature Granulocyte Percent A 0.3 % (0-0.5); Lymphocytes Absolute Auto 2.56 K/mm3 (0.9-3.2); Lymphocytes Percent Auto 29.6 % (18.3-44.2); Mean Corpuscular HGB Conc 31.4 g/dl (32-36); Mean Corpuscular Hemoglobin 27.5 pg (26-34); Mean Corpuscular Volume 87.5 fl (80-100); Monocytes Absolute Auto 0.8 K/mm3 (0.1-0.6); Monocytes Percent Auto 9.1 % (2.6-8.5); Neutrophils Absolute Auto 5.2 K/mm3 (1.3-6.7); Neutrophils Percent Auto 59.5 % (45.5-73.1); Platelet Count Result 210 k/mm3 (150-375); Red Blood Count 5.75 M/mm3 (4.6-6.20); Red Cell Distribution Width 14.4 % (11.5-14.5); White Blood Count 8.7 K/mm3 (4.5-10.0)
[2023-11-24 06:43] LABS: Alanine Aminotransferase 56 U/L (6-50); Albumin Level 4.2 g/dL (3.5-5.1); Alkaline Phosphatase 65 U/L (38-126); Anion Gap 3 mmol/L (8-16); Aspartate Amino Transferase 50 U/L (17-59); Bilirubin,Total 1.1 mg/dL (0.2-1.3); Blood Urea Nitrogen 22 mg/dL (9-20); Calcium 9.7 mg/dL (8.4-10.2); Carbon Dioxide 30 mmol/L (22-30); Chloride 106 mmol/L (98-107); Estimated CRCL calculation 91 ml/min; Estimated Glomerular Filt Rate > 60; Glucose 90 mg/dL (65-110); Potassium 4.3 mmol/L (3.4-5.0); Sodium 139 mmol/L (137-145)
[2023-11-24] MEDS: ATORVASTATIN 20 MG TABLET PO (08:03)
[2023-11-24] MEDS: LOSARTAN POTASSIUM 100 MG TABLET PO (08:03)
--- NOTE | 2023-11-24 10:29 | WPDNEUROPN ---
Progress Note: A&P Assessment and Plan (1) Weakness: Code(s): R53.1 - Weakness Status: Acute (2) Paresthesias: Code(s): R20.2 - Paresthesia of skin Status: Acute Plan Mr. Lozano is a 38 year old male with a history of hypertension presenting for evaluation of numbness and weakness in the extremities. Weakness is more significant than the sensory changes. He has weakness proximally but more distally in the upper extremities, and more proximally than distally in the lower extremities. Subacute presentation of symptoms concerning for AIDP/[place], although he does not have the ascending sensory changes, and his weakness is more proximal rather than distal in the lower extremities. MRI of neuraxis was negative for any lesions (done with and without contrast). CSF studies showed normal cell count and normal protein levels. Protein levels can be normal in around 10% of patients with AIDP. CK was with mild elevation (415) -- could be from deconditioning. Less likely muscle disorder given the numbness/paraesthesias. 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 - Transfer to IMU - Obtain Immunoglobulin levels -- if appropriate, will start IVIG 0.4g/kg x 5 days - Assess response to IVIG daily, if no improvement, recommend transfer to higher level of care for possible plasmapheresis. They would also be able to do EMG/NCS as inpatient, which we unfortunately cannot do here at [facility]. - Trend CK levels daily - Cardiorespiratory monitoring for autonomic dysfunction - Please ask RT to check NIFs every 4 hours Subjective Date/time seen: 11/24/23 10:29 Interval history: Mr. Lozano is a 38 year old male with a history of hypertension presenting for evaluation of numbness and weakness in the extremities. Patient started having numbness/tingling in his hands and feet about 4 weeks prior to admission. About 1 week prior to admission, he noticed that his hands were weak -- having difficulty with writing and opening bottles, and his proximal lower extremities were weak as well. He has been having stiffness in his hands and legs, twitching/cramping of the hamstrings. He eventually presented to [facility] ED due to significant weakness to the point that he could not get off the floor. He was admitted for further work-up. MRI brain, cervical spine, thoracic spine, and lumbar spine were all negative for any cord signal changes. He had an LP which showed normal cell count and protein with lymphocytic predominance (92%). On further discussion patient reports that numbness has stayed mostly in his hands and feet and has not ascended very much. The weakness is the most significant issue for him. He also had urinary retention when he was first admitted, and was straight cathed. Since then he is able to void on his own, but does not feel the urge to void. He has not had a BM in about 5 days. He denies any numbness in the genital or perineal region. He denies any incontinence. No double vision, speech changes, or trouble swallowing. He did have a week where he had malaise and sinus congestion in September 2023, but he cannot think of any other recent illnesses. He had COVID in April 2023. No recent international travel. No tick bites. He is not around any farm animals/livestock. He is not a heavy drinker -- he has about 4-6 alcoholic beverages per week. There is no family history of neuromuscular conditions that patient and his mother are aware of. Review of Systems Review of Systems: All systems reviewed & are unremarkable except as noted in HPI and below Exam Const: General: comfortable and no acute distress HENMT: Mouth: Yes moist mucous membranes Eyes: Pupils: Equal, round and reactive pupils present EOM: EOMs intact bilaterally Resp: Effort & Inspection: normal respiratory effort Skin: General
--- NOTE | 2023-11-24 11:06 | PC.NURSE ---
On 11/24/23, the student, [Gui Richter], provided care and completed [facility] documentation on this patient. I have reviewed the student's documentation and agree with the findings.
[2023-11-24 14:02] LABS: Immunoglobulin A 111 mg/dL (70-400); Immunoglobulin G 1793 mg/dL (700-1600); Immunoglobulin M 121 mg/dL (40-230)
--- NOTE | 2023-11-24 15:05 | PCOTNOTE ---
Patient is going to be moved to IMU this date, not seen at this time, will follow up.
--- NOTE | 2023-11-24 15:55 | PC.NURSE ---
To IMU via bed. Voiding without difficulty. Family at bedside. Report given to Barby COURTNEY.
--- NOTE | 2023-11-24 15:56 | PC.NURSE ---
This patient, Anton Lozano, was received from [[id number]] on 11/24/23 at 1556. Patient/family oriented to unit policies and routines. Report received from Natty COURTNEY.
--- NOTE | 2023-11-24 16:11 | P.PNIM_ITS ---
Progress Note: A&P Assessment and Plan (1) Paresthesias: Code(s): R20.2 - Paresthesia of skin Status: Acute Assessment and Plan: * patient reporting weakness and numbness in his hands and feet for the past 2 weeks * neurology consulted - lumbar puncture yesterday * CSF studies showed normal cell count and normal protein levels. Protein levels can be normal in early Guillan [place]. CK was with mild elevation (415) -- could be from deconditioning. 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 * MRI of brain/ brainstem, cervical spine, lumbar spine, and thoracic spine unrevealing * Aldolase pending, CK for 15, CRP less than 0.5, lactate dehydrogenase 206, TSH 1.79 * head CT negative * cervical spine CT showing mild cervical spondylosis * continuous cardiac monitoring * neurochecks Q 4 hours * HIV panel negative * Lipid panel elevated * Hgb A1C 5.0 Magnesium WNL * lyme disease and west nile virus pending * PT and OT ordered to eval and treat * will transfer to IMU * Immunoglobulin levels WNL, will start IVIG 0.4g/kg x 5 days * Assess response to IVIG daily, if no improvement, recommend transfer to higher level of care for possible plasmapheresis * Trend CK levels daily * RT to check NIFs every 4 hours (2) Muscle weakness: Code(s): M62.81 - Muscle weakness (generalized) Status: Acute Assessment and Plan: see above (3) Urinary retention: Code(s): R33.9 - Retention of urine, unspecified Status: Acute Assessment and Plan: * Patient unable to void this morning, nursing did bladder scan and noted 275ml of urine in bladder. They did straight cath him x1 and met a little resistance at the prostate. * Continue to monitor for urinary retention * Consider Flomax * Could be due to enlarged prostate. (4) Hypertension: Code(s): I10 - Essential (primary) hypertension Status: Chronic Assessment and Plan: * continue losartan 100 mg daily (5) Hyperlipidemia: Code(s): E78.5 - Hyperlipidemia, unspecified Status: Acute Assessment and Plan: * lipid panel showed total cholesterol 214 * LDL 132 * triglycerides 126 * start on Lipitor 20 mg daily Subjective Date/time seen: 11/24/23 16:11 Interval history: Patient reports continued tingling sensation and difficulty with muscle strength in his hands and legs bilaterally. He denies any vision changes, pain or SOB or chest pain. Neurology is following - per note CSF studies showed normal cell count and normal protein levels. Protein levels can be normal in early Guillan [place]. CK was with mild elevation (415) -- could be from deconditioning. 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 Will transfer to IMU, follow closely and start IVIG x5 days. May need transfer if response does not improve or condition worsens as neuro coverage will not be here tomorrow or Tuesday. Review of Systems Review of Systems: All systems reviewed & are unremarkable except as noted in HPI and below Exam Narrative: General: In no acute distress, well nourished Head: atraumatic, no encephalopathy Eyes: EOMI, PERRLA, sclera clear, denies vision changes ENT: moist mucous membranes Neck: supple, no JVD, no adenopathy, trachea midline Cardiac:RRR. No murmur, gallops or friction rubs, peripheral pulses intact. Respiratory: Lungs clear to auscultation Gastrointestina
--- NOTE | 2023-11-24 16:11 | PM.IMPN ---
Progress Note: A&P Assessment and Plan (1) Paresthesias: Code(s): R20.2 - Paresthesia of skin Status: Acute Assessment and Plan: patient reporting weakness and numbness in his hands and feet for the past 2 weeks neurology consulted - lumbar puncture yesterday CSF studies showed normal cell count and normal protein levels. Protein levels can be normal in early Guillan [place]. CK was with mild elevation (415) -- could be from deconditioning. 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 MRI of brain/ brainstem, cervical spine, lumbar spine, and thoracic spine unrevealing Aldolase pending, CK for 15, CRP less than 0.5, lactate dehydrogenase 206, TSH 1.[address] negative cervical spine CT showing mild cervical spondylosis continuous cardiac monitoring neurochecks Q 4 hours HIV panel negative Lipid panel elevated Hgb A1C 5.0 Magnesium WNL lyme disease and west nile virus pending PT and OT ordered to eval and treat will transfer to IMU Immunoglobulin levels WNL, will start IVIG 0.4g/kg x 5 days Assess response to IVIG daily, if no improvement, recommend transfer to higher level of care for possible plasmapheresis Trend CK levels daily RT to check NIFs every 4 hours (2) Muscle weakness: Code(s): M62.81 - Muscle weakness (generalized) Status: Acute Assessment and Plan: see above (3) Urinary retention: Code(s): R33.9 - Retention of urine, unspecified Status: Acute Assessment and Plan: Patient unable to void this morning, nursing did bladder scan and noted 275ml of urine in bladder. They did straight cath him x1 and met a little resistance at the prostate. Continue to monitor for urinary retention Consider Flomax Could be due to enlarged prostate. (4) Hypertension: Code(s): I10 - Essential (primary) hypertension Status: Chronic Assessment and Plan: continue losartan 100 mg daily (5) Hyperlipidemia: Code(s): E78.5 - Hyperlipidemia, unspecified Status: Acute Assessment and Plan: lipid panel showed total cholesterol 214 LDL 132 triglycerides 126 start on Lipitor 20 mg daily Subjective Date/time seen: 11/24/23 16:11 Interval history: Patient reports continued tingling sensation and difficulty with muscle strength in his hands and legs bilaterally. He denies any vision changes, pain or SOB or chest pain. Neurology is following - per note CSF studies showed normal cell count and normal protein levels. Protein levels can be normal in early Guillan [place]. CK was with mild elevation (415) -- could be from deconditioning. 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 Will transfer to IMU, follow closely and start IVIG x5 days. May need transfer if response does not improve or condition worsens as neuro coverage will not be here tomorrow or Tuesday. Review of Systems Review of Systems: All systems reviewed & are unremarkable except as noted in HPI and below Exam Narrative: General: In no acute distress, well nourished Head: atraumatic, no encephalopathy Eyes: EOMI, PERRLA, sclera clear, denies vision changes ENT: moist mucous membranes Neck: supple, no JVD, no adenopathy, trachea midline Cardiac:RRR. No murmur, gallops or friction rubs, peripheral pulses intact. Respiratory: Lungs clear to auscultation Gastrointestinal: soft, non-distended, non-tender, normoactive bowel sounds. Extremities: moves all extremities well, no edema, good ROM, strength 4/5 Skin: clean, dry, intact. No wounds or lesions. Neuro: Alert and oriented x4, cranial nerves intact, no neuro deficits. Psych: normal mood, normal affect, interactive Objective Data Vital Signs Vital Signs: Vital Signs - 24 hr 11/23/23 20:00 11/23/23 20:03 11/23/23 21:58 Temperature 97.0 F L Pulse Rate 91 93
[2023-11-24 16:28] LABS: Creatine Kinase 316 U/L (55-170)
[2023-11-24] MEDS: polyethylene glycoL 3350 17 GM POWD.PACK PO (18:54)
[2023-11-24] MEDS: DOCUSATE SODIUM 100 MG CAPSULE PO (21:21)
[2023-11-25] VITALS (19 sets, daily range): BP systolic 123–138; BP diastolic 86–98; PULSE 68–102; RESP 16–28; TEMP 35.6–36.4; O2SAT 96–100
[2023-11-25] MEDS: SODIUM CHLOR 3% 15 ML NEB (RESPIRATORY THERAPY) 6 ML INHALATION (05:46)
[2023-11-25 05:59] LABS: Basophils Absolute Auto 0.1 K/mm3 (0.0-0.1); Basophils Percent Auto 0.6 % (0.2-1.2); Eosinophils Absolute Auto 0.1 K/mm3 (0-0.3); Eosinophils Percent Auto 1.3 % (0-4.4); Hematocrit 49.9 % (42.0-52.0); Hemoglobin 15.9 g/dL (14.0-18.0); Immature Granulocyte Absolute 0.03 K/mm3 (0.00-0.031); Immature Granulocyte Percent A 0.4 % (0-0.5); Lymphocytes Absolute Auto 2.29 K/mm3 (0.9-3.2); Lymphocytes Percent Auto 29.4 % (18.3-44.2); Mean Corpuscular HGB Conc 31.9 g/dl (32-36); Mean Corpuscular Hemoglobin 27.6 pg (26-34); Mean Corpuscular Volume 86.5 fl (80-100); Mean Platelet Volume 11.9 fl (7.4-10.4); Monocytes Absolute Auto 0.8 K/mm3 (0.1-0.6); Monocytes Percent Auto 9.6 % (2.6-8.5); Neutrophils Absolute Auto 4.6 K/mm3 (1.3-6.7); Neutrophils Percent Auto 58.7 % (45.5-73.1); Platelet Count Result 194 k/mm3 (150-375); Red Blood Count 5.77 M/mm3 (4.6-6.20); Red Cell Distribution Width 14.6 % (11.5-14.5); White Blood Count 7.8 K/mm3 (4.5-10.0)
[2023-11-25 06:13] LABS: Alanine Aminotransferase 59 U/L (6-50); Albumin Level 4.1 g/dL (3.5-5.1); Alkaline Phosphatase 65 U/L (38-126); Anion Gap 5 mmol/L (8-16); Aspartate Amino Transferase 48 U/L (17-59); Bilirubin,Total 1.2 mg/dL (0.2-1.3); Blood Urea Nitrogen 21 mg/dL (9-20); Calcium 9.6 mg/dL (8.4-10.2); Carbon Dioxide 31 mmol/L (22-30); Chloride 104 mmol/L (98-107); Estimated CRCL calculation 74 ml/min; Estimated Glomerular Filt Rate > 60; Glucose 91 mg/dL (65-110); Potassium 4.4 mmol/L (3.4-5.0); Sodium 140 mmol/L (137-145)
[2023-11-25] MEDS: ATORVASTATIN 20 MG TABLET PO (08:43)
[2023-11-25] MEDS: DOCUSATE SODIUM 100 MG CAPSULE PO (08:43)
[2023-11-25] MEDS: LOSARTAN POTASSIUM 100 MG TABLET PO (08:43)
[2023-11-25] MEDS: polyethylene glycoL 3350 17 GM POWD.PACK PO (09:10)
--- NOTE | 2023-11-25 11:36 | PC.NURSE ---
Increased IG infusion to 64.8ml/hr per pharmacy.
[2023-11-25 12:45] LABS: CMV DNA Quant PCR IU/mL Not Detected; Cytomegalovirus DNA Quant PCR Not Detected log IU/mL; Cytomegalovirus DNA Source Serum
[2023-11-25 13:01] LABS: Herpes Simplex Type 1 DNA PCR Not Detected (Not Detected); Herpes Simplex Type 2 DNA PCR Not Detected (Not Detected)
[2023-11-25 14:41] LABS: Cryptococcus Antigen Not Detected (Not Detected); Cryptococcus Specimen Source Serum
[2023-11-25 15:09] LABS: Epstein Barr Virus DNA PCR Not Detected (Not Detected); Source Epstein Barr Virus CSF
[2023-11-25 15:10] LABS: West Nile Virus, IgM <0.90 index (<0.90)
--- NOTE | 2023-11-25 15:30 | P.PNIM_ITS ---
Progress Note: A&P Assessment and Plan (1) Paresthesias: Code(s): R20.2 - Paresthesia of skin Status: Acute Assessment and Plan: * patient reporting weakness and numbness in his hands and feet for the past 2 weeks * neurology consulted - lumbar puncture * CSF studies showed normal cell count and normal protein levels. Protein levels can be normal in early Guillan [place]. CK was with mild elevation (415) -- could be from deconditioning. 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 * MRI of brain/ brainstem, cervical spine, lumbar spine, and thoracic spine unrevealing * Aldolase pending, CK for 15, CRP less than 0.5, lactate dehydrogenase 206, TSH 1.79 * head CT negative * cervical spine CT showing mild cervical spondylosis * continuous cardiac monitoring * neurochecks Q 4 hours * HIV panel negative * Lipid panel elevated * Hgb A1C 5.0 Magnesium WNL * lyme disease pending * west nile virus negative * PT and OT ordered to eval and treat * Immunoglobulin levels WNL, will start IVIG 0.4g/kg x 5 days * Assess response to IVIG daily, if no improvement, recommend transfer to higher level of care for possible plasmapheresis * Trend CK levels daily * RT to check NIFs every 4 hours (2) Muscle weakness: Code(s): M62.81 - Muscle weakness (generalized) Status: Acute Assessment and Plan: see above (3) Urinary retention: Code(s): R33.9 - Retention of urine, unspecified Status: Resolved Assessment and Plan: * Patient unable to void this morning, nursing did bladder scan and noted 275ml of urine in bladder. They did straight cath him x1 and met a little resistance at the prostate. * Continue to monitor for urinary retention * Consider Flomax * Could be due to enlarged prostate. (4) Hypertension: Code(s): I10 - Essential (primary) hypertension Status: Chronic Assessment and Plan: * continue losartan 100 mg daily (5) Hyperlipidemia: Code(s): E78.5 - Hyperlipidemia, unspecified Status: Acute Assessment and Plan: * lipid panel showed total cholesterol 214 * LDL 132 * triglycerides 126 * start on Lipitor 20 mg daily Subjective Date/time seen: 11/25/23 15:30 Interval history: Patient reports continued tingling sensation and difficulty with muscle strength in his hands and legs bilaterally. He denies any vision changes, pain or SOB or chest pain. Neurology is following closely, but due to scant coverage over the next week, there is a low threshold for transfer to [facility] for possible plasmapheresis. They would also be able to do EMG/NCS as inpatient, which we cannot do here at [place]. Discussed in detail with patient, who understands his condition and importance of expressing any worsening or changes, especially with the IVIG infusions. Follow closely and start IVIG x5 days. Continue to assess daily as he should have improvement within next day or two or transfer is likely needed. He belinda erated his IVIG without issue today. Denies difficulty with urination, but order mag citrate to help with BM. Exam Narrative: General: In no acute distress, well nourished Head: atraumatic, no encephalopathy Eyes: EOMI, PERRLA, sclera clear, denies vision changes ENT: moist mucous membranes Neck: supple, no JVD, no adenopathy, trachea midline Cardiac:RRR. No murmur, gallops or friction rubs, peripheral pulses intact. Respiratory: Lungs clear to auscultation Gastrointestinal: so
--- NOTE | 2023-11-25 15:30 | PM.IMPN ---
Progress Note: A&P Assessment and Plan (1) Paresthesias: Code(s): R20.2 - Paresthesia of skin Status: Acute Assessment and Plan: patient reporting weakness and numbness in his hands and feet for the past 2 weeks neurology consulted - lumbar puncture CSF studies showed normal cell count and normal protein levels. Protein levels can be normal in early Guillan [place]. CK was with mild elevation (415) -- could be from deconditioning. 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 MRI of brain/ brainstem, cervical spine, lumbar spine, and thoracic spine unrevealing Aldolase pending, CK for 15, CRP less than 0.5, lactate dehydrogenase 206, TSH 1.[address] negative cervical spine CT showing mild cervical spondylosis continuous cardiac monitoring neurochecks Q 4 hours HIV panel negative Lipid panel elevated Hgb A1C 5.0 Magnesium WNL lyme disease pending west nile virus negative PT and OT ordered to eval and treat Immunoglobulin levels WNL, will start IVIG 0.4g/kg x 5 days Assess response to IVIG daily, if no improvement, recommend transfer to higher level of care for possible plasmapheresis Trend CK levels daily RT to check NIFs every 4 hours (2) Muscle weakness: Code(s): M62.81 - Muscle weakness (generalized) Status: Acute Assessment and Plan: see above (3) Urinary retention: Code(s): R33.9 - Retention of urine, unspecified Status: Resolved Assessment and Plan: Patient unable to void this morning, nursing did bladder scan and noted 275ml of urine in bladder. They did straight cath him x1 and met a little resistance at the prostate. Continue to monitor for urinary retention Consider Flomax Could be due to enlarged prostate. (4) Hypertension: Code(s): I10 - Essential (primary) hypertension Status: Chronic Assessment and Plan: continue losartan 100 mg daily (5) Hyperlipidemia: Code(s): E78.5 - Hyperlipidemia, unspecified Status: Acute Assessment and Plan: lipid panel showed total cholesterol 214 LDL 132 triglycerides 126 start on Lipitor 20 mg daily Subjective Date/time seen: 11/25/23 15:30 Interval history: Patient reports continued tingling sensation and difficulty with muscle strength in his hands and legs bilaterally. He denies any vision changes, pain or SOB or chest pain. Neurology is following closely, but due to scant coverage over the next week, there is a low threshold for transfer to [facility] for possible plasmapheresis. They would also be able to do EMG/NCS as inpatient, which we cannot do here at [place]. Discussed in detail with patient, who understands his condition and importance of expressing any worsening or changes, especially with the IVIG infusions. Follow closely and start IVIG x5 days. Continue to assess daily as he should have improvement within next day or two or transfer is likely needed. He tolerated his IVIG without issue today. Denies difficulty with urination, but order mag citrate to help with BM. Exam Narrative: General: In no acute distress, well nourished Head: atraumatic, no encephalopathy Eyes: EOMI, PERRLA, sclera clear, denies vision changes ENT: moist mucous membranes Neck: supple, no JVD, no adenopathy, trachea midline Cardiac:RRR. No murmur, gallops or friction rubs, peripheral pulses intact. Respiratory: Lungs clear to auscultation Gastrointestinal: soft, non-distended, non-tender, normoactive bowel sounds. Extremities: moves all extremities well, no edema, good ROM, strength 4/5 Skin: clean, dry, intact. No wounds or lesions. Neuro: Alert and oriented x4, cranial nerves intact, no neuro deficits. Psych: normal mood, normal affect, interactive Objective Data Vital Signs Vital Signs: Vital Signs - 24 hr 11/24/23 16:08 11/24/23 16:00 11/24/23 16:00 Temperature 97
[2023-11-25 15:42] LABS: Creatine Kinase 306 U/L (55-170)
[2023-11-25] MEDS: MAGNESIUM CITRATE 300 ML BTL PO (16:19)
[2023-11-26] VITALS (19 sets, daily range): BP systolic 119–152; BP diastolic 84–99; PULSE 75–105; RESP 14–18; TEMP 36.3–36.7; O2SAT 100
[2023-11-26] MEDS: SODIUM CHLOR 3% 15 ML NEB (RESPIRATORY THERAPY) 6 ML INHALATION (04:46)
[2023-11-26 05:12] LABS: Basophils Absolute Auto 0.1 K/mm3 (0.0-0.1); Basophils Percent Auto 0.6 % (0.2-1.2); Eosinophils Absolute Auto 0.1 K/mm3 (0-0.3); Eosinophils Percent Auto 1.4 % (0-4.4); Hematocrit 51.4 % (42.0-52.0); Hemoglobin 16.2 g/dL (14.0-18.0); Immature Granulocyte Absolute 0.02 K/mm3 (0.00-0.031); Immature Granulocyte Percent A 0.3 % (0-0.5); Lymphocytes Absolute Auto 1.84 K/mm3 (0.9-3.2); Lymphocytes Percent Auto 23.9 % (18.3-44.2); Mean Corpuscular HGB Conc 31.5 g/dl (32-36); Mean Corpuscular Hemoglobin 27.6 pg (26-34); Mean Corpuscular Volume 87.4 fl (80-100); Monocytes Absolute Auto 0.8 K/mm3 (0.1-0.6); Monocytes Percent Auto 10.2 % (2.6-8.5); Neutrophils Absolute Auto 4.9 K/mm3 (1.3-6.7); Neutrophils Percent Auto 63.6 % (45.5-73.1); Platelet Count Result 220 k/mm3 (150-375); Red Blood Count 5.88 M/mm3 (4.6-6.20); Red Cell Distribution Width 14.2 % (11.5-14.5); White Blood Count 7.7 K/mm3 (4.5-10.0)
[2023-11-26 05:22] LABS: Alanine Aminotransferase 62 U/L (6-50); Albumin Level 4.3 g/dL (3.5-5.1); Alkaline Phosphatase 77 U/L (38-126); Anion Gap 5 mmol/L (8-16); Aspartate Amino Transferase 49 U/L (17-59); Blood Urea Nitrogen 21 mg/dL (9-20); Calcium 9.7 mg/dL (8.4-10.2); Carbon Dioxide 29 mmol/L (22-30); Chloride 106 mmol/L (98-107); Estimated CRCL calculation 88 ml/min; Estimated Glomerular Filt Rate > 60; Glucose 95 mg/dL (65-110); Potassium 4.5 mmol/L (3.4-5.0); Sodium 140 mmol/L (137-145)
--- NOTE | 2023-11-26 06:32 | PCRCNOTE ---
patient was unable to produce a sputum sample
[2023-11-26] MEDS: LOSARTAN POTASSIUM 100 MG TABLET PO (10:15)
[2023-11-26] MEDS: ATORVASTATIN 20 MG TABLET PO (10:15)
[2023-11-26 11:20] LABS: Varicella IgM Antibody <=0.90 (<=0.90)
[2023-11-26 12:27] LABS: Creatine Kinase 318 U/L (55-170); Magnesium 2.5 mg/dL (1.6-2.3); Phosphorus 4.5 mg/dL (2.5-4.5)
--- NOTE | 2023-11-26 12:49 | WPDNEUROPN ---
Subjective Date/time seen: 11/26/23 12:49 Interval history: 38 years old right-handed male with the complaints of numbness and weakness in the extremities , weakness more than sensory , distal more than proximal in the upper extremities and proximal more than distal in the lower extremities, raising the possibility of AIDP /, negative MRI of the neuraxis for any space-occupying lesion, normal cell count and normal protein in the CSF with question being normal around 10% the patient with AIDP, very mild elevation of CPK but obviously ruling out the onpossibility of muscle disease all these finding 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 Routine CBC normal, ALT 62, CK of only 318, CSF with only 2 lymph and 8 monocytes, CMV DNA not detected, all cultures negative, receiving losartan 100mg daily ,atorvastatin 20mg daily and immune globulin daily, daily reports improvement in his lower extremities with decrease in numbness and generally feeling better. All the pros and cons of the differential diagnosis discussed caudally and advised to continue the treatment as such will obviously go through the physical therapy for normal duration. Objective Data Vital Signs Vital Signs: Vital Signs - 24 hr 11/25/23 14:00 11/25/23 14:28 11/25/23 16:00 Temperature 35.6 C L 36.0 C L Pulse Rate 91 79 85 Respiratory Rate 28 H 28 H Blood Pressure 131/92 H 137/94 H Pulse Oximetry 100 Oxygen Delivery 11/25/23 16:00 11/25/23 16:00 11/25/23 18:00 Temperature Pulse Rate 99 98 Respiratory Rate Blood Pressure Pulse Oximetry Oxygen Delivery Room Air 11/25/23 20:27 11/25/23 20:00 11/25/23 20:00 Temperature 36.4 C L Pulse Rate 92 95 92 Respiratory Rate 18 18 Blood Pressure 138/98 H Pulse Oximetry 96 96 Oxygen Delivery Room Air 11/26/23 00:29 11/25/23 22:00 11/26/23 00:00 Temperature 36.4 C Pulse Rate 93 91 90 Respiratory Rate 18 Blood Pressure 124/92 H Pulse Oximetry 100 Oxygen Delivery 11/26/23 00:00 11/26/23 02:00 11/26/23 03:44 Temperature 36.5 C Pulse Rate 93 89 84 Respiratory Rate 18 18 Blood Pressure 135/95 H Pulse Oximetry 100 100 Oxygen Delivery Room Air 11/26/23 04:47 11/26/23 04:00 11/26/23 04:00 Temperature Pulse Rate 75 77 84 Respiratory Rate 18 Blood Pressure Pulse Oximetry 100 Oxygen Delivery Room Air 11/26/23 06:00 11/26/23 08:00 11/26/23 09:50 Temperature 36.4 C L 36.5 C Pulse Rate 83 97 90 Respiratory Rate 14 16 Blood Pressure 128/91 H 128/91 H Pulse Oximetry 100 100 Oxygen Delivery 11/26/23 10:05 Temperature 36.4 C Pulse Rate 104 H Respiratory Rate 16 Blood Pressure 129/94 H Pulse Oximetry 100 Oxygen Delivery Intake/Output Intake/Output: Intake & Output 11/23/23 11/24/23 11/25/23 11/26/23 23:59 23:59 23:59 23:59 Intake Total 1260 1480 1940.0 612.9 Output Total 600 1300 500 350 Balance 382 479 8710.0 262.9 Meds/Results Medications: Active Medications Generic Name Dose Route Start Last Admin Trade Name Freq PRN Reason Stop Dose Admin Acetaminophen 650 mg 11/21/23 12:58 11/23/23 17:43 Acetaminophen 325 Mg Tablet PO 650 mg Q4H PRN Administration Mild Pain (1-3) or Fever Hydrocodone Bitart/Acetaminophen 1 tab 11/21/23 12:58 Hydrocodone/Acetaminophen (*Crx) 5-325 Mg Tablet PO Q4H PRN Pain Rated 4-6 Atorvastatin Calcium 20 mg 11/24/23 09:00 11/26/23 10:15 Atorvastatin 20 Mg Tablet PO 20 mg DAILY DARIAN Administration Docusate Sodium 100 mg 11/24/23 21:00 11/26/23 11:55 Docusate Sodium 100 Mg Capsule PO Not Given Q12HR DARIAN Immune Globulin 40 gm/ Immune 430 mls @ 32.4 mls/hr 11/25/23 09:00 11/26/23 11:05 Globulin 3 gm/ N/A IVPB 11/29/23 22:17 129 mls/hr DAILY DARIAN Infusion Losartan Potassium 100 mg 11/22/23 09:00 11/26/23 10:15 Losartan Potassium 100 Mg Tablet PO 100 mg DAILY DARIAN Administration Ondansetron HCl 4 mg
[2023-11-26 12:51] LABS: Aldolase 11.2 U/L (<=8.1)
--- NOTE | 2023-11-26 18:02 | P.PNIM_ITS ---
Progress Note: A&P Assessment and Plan (1) Paresthesias: Code(s): R20.2 - Paresthesia of skin Status: Acute Assessment and Plan: * patient reporting weakness and numbness in his hands and feet for the past 2 weeks * neurology consulted - lumbar puncture * CSF studies showed normal cell count and normal protein levels. Protein levels can be normal in early Guillan [place]. CK was with mild elevation (415) -- could be from deconditioning. 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 * MRI of brain/ brainstem, cervical spine, lumbar spine, and thoracic spine unrevealing * Aldolase pending, CK for 15, CRP less than 0.5, lactate dehydrogenase 206, TSH 1.79 * head CT negative * cervical spine CT showing mild cervical spondylosis * continuous cardiac monitoring * neurochecks Q 4 hours * HIV panel negative * Lipid panel elevated * Hgb A1C 5.0 Magnesium WNL * lyme disease pending * west nile virus negative * PT and OT ordered to eval and treat * Immunoglobulin levels WNL * Patient started on IVIG 0.4g/kg x 5 days ... Day 2/5 today * Assess response to IVIG daily, if no improvement, recommend transfer to higher level of care for possible plasmapheresis * Trend CK levels daily * RT to check NIFs every 4 hours (2) Muscle weakness: Code(s): M62.81 - Muscle weakness (generalized) Status: Acute Assessment and Plan: see above (3) Urinary retention: Code(s): R33.9 - Retention of urine, unspecified Status: Resolved Assessment and Plan: * Patient unable to void this morning, nursing did bladder scan and noted 275ml of urine in bladder. They did straight cath him x1 and met a little resistance at the prostate. * Continue to monitor for urinary retention * Consider Flomax * Could be due to enlarged prostate. (4) Hypertension: Code(s): I10 - Essential (primary) hypertension Status: Chronic Assessment and Plan: * continue losartan 100 mg daily (5) Hyperlipidemia: Code(s): E78.5 - Hyperlipidemia, unspecified Status: Acute Assessment and Plan: * lipid panel showed total cholesterol 214 * LDL 132 * triglycerides 126 * start on Lipitor 20 mg daily Plan Neurology is following closely, but due to scant coverage over the next week, there is a low threshold for transfer to [facility] for possible plasmapheresis. They would also be able to do EMG/NCS as inpatient, which we cannot do here at [place]. Discussed in detail with patient, who understands his condition and importance of expressing any worsening or changes, especially with the IVIG infusions. ? Patient seen and examined at bedside during my morning rounds ? Collaborated with patient's nurse at the bedside in detail and addressed all concerns ? Labs, electrolytes, radiology, investigations and test results reviewed ? Consult/Nursing/Ancilliary notes on the chart reviewed and appreciated ? Spoke with patient/family at the bedside and answered all the questions that they had Repeat labs in a.m. Electrolyte replacement as per protocol. Patient will be monitored very closely on the floor. Further recommendations as per the hospital course. Time Spent With Patient Time with patient: 15 - 25 minutes Subjective Date/time seen: 11/26/23 18:02 Interval history: Patient on day 2 of IV IG tolerating well. Still complains of tingling sensations with weakness in hands and legs. Exam Narrative:
--- NOTE | 2023-11-26 18:02 | PM.IMPN ---
Progress Note: A&P Assessment and Plan (1) Paresthesias: Code(s): R20.2 - Paresthesia of skin Status: Acute Assessment and Plan: patient reporting weakness and numbness in his hands and feet for the past 2 weeks neurology consulted - lumbar puncture CSF studies showed normal cell count and normal protein levels. Protein levels can be normal in early Guillan [place]. CK was with mild elevation (415) -- could be from deconditioning. 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 MRI of brain/ brainstem, cervical spine, lumbar spine, and thoracic spine unrevealing Aldolase pending, CK for 15, CRP less than 0.5, lactate dehydrogenase 206, TSH 1.[address] negative cervical spine CT showing mild cervical spondylosis continuous cardiac monitoring neurochecks Q 4 hours HIV panel negative Lipid panel elevated Hgb A1C 5.0 Magnesium WNL lyme disease pending west nile virus negative PT and OT ordered to eval and treat Immunoglobulin levels WNL Patient started on IVIG 0.4g/kg x 5 days ... Day 2/5 today Assess response to IVIG daily, if no improvement, recommend transfer to higher level of care for possible plasmapheresis Trend CK levels daily RT to check NIFs every 4 hours (2) Muscle weakness: Code(s): M62.81 - Muscle weakness (generalized) Status: Acute Assessment and Plan: see above (3) Urinary retention: Code(s): R33.9 - Retention of urine, unspecified Status: Resolved Assessment and Plan: Patient unable to void this morning, nursing did bladder scan and noted 275ml of urine in bladder. They did straight cath him x1 and met a little resistance at the prostate. Continue to monitor for urinary retention Consider Flomax Could be due to enlarged prostate. (4) Hypertension: Code(s): I10 - Essential (primary) hypertension Status: Chronic Assessment and Plan: continue losartan 100 mg daily (5) Hyperlipidemia: Code(s): E78.5 - Hyperlipidemia, unspecified Status: Acute Assessment and Plan: lipid panel showed total cholesterol 214 LDL 132 triglycerides 126 start on Lipitor 20 mg daily Plan Neurology is following closely, but due to scant coverage over the next week, there is a low threshold for transfer to [facility] for possible plasmapheresis. They would also be able to do EMG/NCS as inpatient, which we cannot do here at [place]. Discussed in detail with patient, who understands his condition and importance of expressing any worsening or changes, especially with the IVIG infusions. ? Patient seen and examined at bedside during my morning rounds ? Collaborated with patient's nurse at the bedside in detail and addressed all concerns ? Labs, electrolytes, radiology, investigations and test results reviewed ? Consult/Nursing/Ancilliary notes on the chart reviewed and appreciated ? Spoke with patient/family at the bedside and answered all the questions that they had Repeat labs in a.m. Electrolyte replacement as per protocol. Patient will be monitored very closely on the floor. Further recommendations as per the hospital course. Time Spent With Patient Time with patient: 15 - 25 minutes Subjective Date/time seen: 11/26/23 18:02 Interval history: Patient on day 2 of IV IG tolerating well. Still complains of tingling sensations with weakness in hands and legs. Exam Narrative: General: In no acute distress, well nourished Head: atraumatic, no encephalopathy Eyes: EOMI, PERRLA, sclera clear, denies vision changes ENT: moist mucous membranes Neck: supple, no JVD, no adenopathy, trachea midline Cardiac:RRR. No murmur, gallops or friction rubs, peripheral pulses intact. Respiratory: Lungs clear to auscultation Gastrointestinal: soft, non-distended, non-tender, normoactive bowel sounds. Extremities: moves all extremities well, no christel
[2023-11-26 18:37] LABS: Creatine Kinase 302 U/L (55-170)
[2023-11-26] MEDS: DOCUSATE SODIUM 100 MG CAPSULE PO (21:49)
[2023-11-27] VITALS (20 sets, daily range): BP systolic 113–152; BP diastolic 66–99; PULSE 66–104; RESP 16–22; TEMP 36.1–37; O2SAT 98–100
[2023-11-27 05:06] LABS: Basophils Percent Auto 0.6 % (0.2-1.2); Eosinophils Absolute Auto 0.1 K/mm3 (0-0.3); Hematocrit 48.4 % (42.0-52.0); Hemoglobin 15.8 g/dL (14.0-18.0); Immature Granulocyte Absolute 0.02 K/mm3 (0.00-0.031); Immature Granulocyte Percent A 0.3 % (0-0.5); Lymphocytes Absolute Auto 2.04 K/mm3 (0.9-3.2); Lymphocytes Percent Auto 28.7 % (18.3-44.2); Mean Corpuscular HGB Conc 32.6 g/dl (32-36); Mean Corpuscular Hemoglobin 27.9 pg (26-34); Mean Corpuscular Volume 85.5 fl (80-100); Mean Platelet Volume 11.9 fl (7.4-10.4); Monocytes Absolute Auto 0.7 K/mm3 (0.1-0.6); Neutrophils Absolute Auto 4.2 K/mm3 (1.3-6.7); Neutrophils Percent Auto 58.4 % (45.5-73.1); Platelet Count Result 211 k/mm3 (150-375); Red Blood Count 5.66 M/mm3 (4.6-6.20); White Blood Count 7.1 K/mm3 (4.5-10.0)
[2023-11-27 05:24] LABS: Alanine Aminotransferase 60 U/L (6-50); Albumin Level 4.1 g/dL (3.5-5.1); Alkaline Phosphatase 71 U/L (38-126); Anion Gap 2 mmol/L (8-16); Aspartate Amino Transferase 51 U/L (17-59); Bilirubin,Total 0.9 mg/dL (0.2-1.3); Blood Urea Nitrogen 25 mg/dL (9-20); Calcium 9.7 mg/dL (8.4-10.2); Carbon Dioxide 31 mmol/L (22-30); Chloride 104 mmol/L (98-107); Estimated CRCL calculation 82 ml/min; Estimated Glomerular Filt Rate > 60; Glucose 96 mg/dL (65-110); Potassium 4.7 mmol/L (3.4-5.0); Sodium 137 mmol/L (137-145)
[2023-11-27 07:59] LABS: Glucose Point of Care 101 mg/dl (65-105)
[2023-11-27] MEDS: LOSARTAN POTASSIUM 100 MG TABLET PO (09:57)
[2023-11-27] MEDS: ATORVASTATIN 20 MG TABLET PO (09:57)
[2023-11-27] MEDS: DOCUSATE SODIUM 100 MG CAPSULE PO (09:58)
[2023-11-27] MEDS: ENOXAPARIN 40 MG/0.4 ML SYRINGE SUB-Q (09:58)
[2023-11-27] MEDS: polyethylene glycoL 3350 17 GM POWD.PACK PO (10:03)
[2023-11-27 12:58] LABS: VDRL Quantitative CSF Nonreactive (Nonreactive)
--- NOTE | 2023-11-27 13:34 | WPDNEUROPN ---
Subjective Date/time seen: 11/27/23 13:34 Interval history: Continues to show signs of slow improvement remains acute alert with normal and full speech oriented in right and left concern about the diagnosis and multiple question asked by the patient particularly what specific diagnosis is being treated he is more concerned about the possibility of multiple sclerosis and amyotrophic lateral sclerosis. Will continue the treatment as such he is able to feel improvement in his sensation in the lower and upper extremities though still on examination he is extraocular movements are full face symmetrical he can raise the upper extremity up until the 85? without resistance and able to move both lower extremities and continues to show the signs of more proximal weakness in upper extremities reflexes are sluggish and plantars are questionable obviously was unable to perform [id number] and heel to knee to gray all the questions answered. All his MRIs are negative and no new lab. Objective Data Vital Signs Vital Signs: Vital Signs - 24 hr 11/26/23 16:00 11/26/23 14:00 11/26/23 16:00 Temperature Pulse Rate 84 99 96 Respiratory Rate 18 Blood Pressure Pulse Oximetry 100 Oxygen Delivery Room Air 11/26/23 19:56 11/26/23 18:00 11/26/23 20:00 Temperature 36.7 C Pulse Rate 89 86 92 Respiratory Rate 16 Blood Pressure 152/99 H Pulse Oximetry 100 Oxygen Delivery 11/26/23 22:00 11/26/23 20:00 11/26/23 23:46 Temperature 36.3 C L Pulse Rate 86 89 87 Respiratory Rate 16 18 Blood Pressure 119/84 Pulse Oximetry 100 100 Oxygen Delivery Room Air 11/27/23 00:00 11/27/23 00:00 11/27/23 02:00 Temperature Pulse Rate 89 87 77 Respiratory Rate 18 Blood Pressure Pulse Oximetry 100 Oxygen Delivery Room Air 11/27/23 04:00 11/27/23 04:00 11/27/23 04:00 Temperature 36.4 C Pulse Rate 66 68 68 Respiratory Rate 16 16 Blood Pressure 133/83 Pulse Oximetry 99 99 Oxygen Delivery Room Air 11/27/23 06:00 11/27/23 08:00 11/27/23 08:33 Temperature 36.7 C Pulse Rate 75 96 Respiratory Rate 22 H Blood Pressure 152/66 H Pulse Oximetry 98 99 Oxygen Delivery 11/27/23 09:55 11/27/23 10:10 11/27/23 08:00 Temperature 36.1 C L 36.1 C L Pulse Rate 104 H 91 97 Respiratory Rate 16 16 Blood Pressure 113/96 H 123/75 Pulse Oximetry 100 100 Oxygen Delivery 11/27/23 10:00 11/27/23 08:00 11/27/23 11:06 Temperature 36.9 C Pulse Rate 91 93 Respiratory Rate 18 Blood Pressure 130/87 Pulse Oximetry 100 Oxygen Delivery Room Air 11/27/23 12:28 Temperature 37.0 C Pulse Rate 102 H Respiratory Rate 18 Blood Pressure 145/99 H Pulse Oximetry 100 Oxygen Delivery Intake/Output Intake/Output: Intake & Output 11/24/23 11/25/23 11/26/23 11/27/23 23:59 23:59 23:59 23:59 Intake Total 1480 1940.0 1640.0 728.1 Output Total 0597 721 9814 300 Balance 180 1440.0 290.0 428.1 Meds/Results Medications: Active Medications Generic Name Dose Route Start Last Admin Trade Name Freq PRN Reason Stop Dose Admin Acetaminophen 650 mg 11/21/23 12:58 11/23/23 17:43 Acetaminophen 325 Mg Tablet PO 650 mg Q4H PRN Administration Mild Pain (1-3) or Fever Hydrocodone Bitart/Acetaminophen 1 tab 11/21/23 12:58 Hydrocodone/Acetaminophen (*Crx) 5-325 Mg Tablet PO Q4H PRN Pain Rated 4-6 Atorvastatin Calcium 20 mg 11/24/23 09:00 11/27/23 09:57 Atorvastatin 20 Mg Tablet PO 20 mg DAILY DARIAN Administration Docusate Sodium 100 mg 11/24/23 21:00 11/27/23 09:58 Docusate Sodium 100 Mg Capsule PO 100 mg Q12HR DARIAN Administration Enoxaparin Sodium 40 mg 11/27/23 09:00 11/27/23 09:58 Enoxaparin 40 Mg/0.4 Ml Syringe SUB-Q 40 mg DAILY DARIAN Administration Immune Globulin 40 gm/ Immune 430 mls @ 32.4 mls/hr 11/25/23 09:00 11/27/23 10:10 Globulin 3 gm/ N/A IVPB 11/29/23 22:17 64.8 mls/hr DAILY DARIAN Infus
[2023-11-27] MEDS: SODIUM CHLORIDE 0.9% IV 1,000 ML 75 ML IV CONT (14:00)
--- NOTE | 2023-11-27 17:43 | P.PNIM_ITS ---
Progress Note: A&P Assessment and Plan (1) Paresthesias: Code(s): R20.2 - Paresthesia of skin Status: Acute Assessment and Plan: * patient reporting weakness and numbness in his hands and feet for the past 2 weeks * neurology consulted - lumbar puncture * CSF studies showed normal cell count and normal protein levels. Protein levels can be normal in early Guillan [place]. CK was with mild elevation (415) -- could be from deconditioning. 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 * MRI of brain/ brainstem, cervical spine, lumbar spine, and thoracic spine unrevealing * Aldolase and CPK are borderline elevated which will be repeated in am * Lactate Dehydrogenase and TSH are within normal limits * head CT negative * cervical spine CT showing mild cervical spondylosis * continuous cardiac monitoring * neurochecks Q 4 hours * HIV panel negative * Lipid panel elevated * Hgb A1C 5.0 Magnesium WNL * lyme disease pending * west nile virus negative * PT and OT ordered to eval and treat * Immunoglobulin levels WNL * Patient started on IVIG 0.4g/kg x 5 days ... Day 3/5 today * Assess response to IVIG daily, if no improvement, recommend transfer to higher level of care for possible plasmapheresis * Trend CK levels daily * RT to check NIFs every 4 hours (2) Muscle weakness: Code(s): M62.81 - Muscle weakness (generalized) Status: Acute Assessment and Plan: * Aldolase and CPK are borderline elevated which will be repeated in am (3) Urinary retention: Code(s): R33.9 - Retention of urine, unspecified Status: Resolved Assessment and Plan: * Patient unable to void this morning, nursing did bladder scan and noted 275ml of urine in bladder. They did straight cath him x1 and met a little resistance at the prostate. * Continue to monitor for urinary retention * Consider Flomax * Could be due to enlarged prostate. (4) Hypertension: Code(s): I10 - Essential (primary) hypertension Status: Chronic Assessment and Plan: * continue losartan 100 mg daily (5) Hyperlipidemia: Code(s): E78.5 - Hyperlipidemia, unspecified Status: Acute Assessment and Plan: * lipid panel showed total cholesterol 214 * LDL 132 * triglycerides 126 * start on Lipitor 20 mg daily Plan Neurology is following closely, but due to scant coverage over the next week, there is a low threshold for transfer to [facility] for possible plasmapheresis. They would also be able to do EMG/NCS as inpatient, which we cannot do here at [place]. Discussed in detail with patient, who understands his condition and importance of expressing any worsening or changes, especially with the IVIG infusions. ? Patient seen and examined at bedside during my morning rounds ? Collaborated with patient's nurse at the bedside in detail and addressed all concerns ? Labs, electrolytes, radiology, investigations and test results reviewed ? Consult/Nursing/Ancilliary notes on the chart reviewed and appreciated ? Spoke with patient/family at the bedside and answered all the questions that they had Repeat labs in a.m. Electrolyte replacement as per protocol. Patient will be monitored very closely on the floor. Further recommendations as per the hospital course. Time Spent With Patient Time with patient: 15 - 25 minutes Subjective Date/time seen: 11/27/23 17:43 Interval history: Patient on day 3 of IV IG tolerating well and showing slow improvement.
--- NOTE | 2023-11-27 17:43 | PM.IMPN ---
Progress Note: A&P Assessment and Plan (1) Paresthesias: Code(s): R20.2 - Paresthesia of skin Status: Acute Assessment and Plan: patient reporting weakness and numbness in his hands and feet for the past 2 weeks neurology consulted - lumbar puncture CSF studies showed normal cell count and normal protein levels. Protein levels can be normal in early Guillan [place]. CK was with mild elevation (415) -- could be from deconditioning. 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 MRI of brain/ brainstem, cervical spine, lumbar spine, and thoracic spine unrevealing Aldolase and CPK are borderline elevated which will be repeated in am Lactate Dehydrogenase and TSH are within normal limits head CT negative cervical spine CT showing mild cervical spondylosis continuous cardiac monitoring neurochecks Q 4 hours HIV panel negative Lipid panel elevated Hgb A1C 5.0 Magnesium WNL lyme disease pending west nile virus negative PT and OT ordered to eval and treat Immunoglobulin levels WNL Patient started on IVIG 0.4g/kg x 5 days ... Day 3/5 today Assess response to IVIG daily, if no improvement, recommend transfer to higher level of care for possible plasmapheresis Trend CK levels daily RT to check NIFs every 4 hours (2) Muscle weakness: Code(s): M62.81 - Muscle weakness (generalized) Status: Acute Assessment and Plan: Aldolase and CPK are borderline elevated which will be repeated in am (3) Urinary retention: Code(s): R33.9 - Retention of urine, unspecified Status: Resolved Assessment and Plan: Patient unable to void this morning, nursing did bladder scan and noted 275ml of urine in bladder. They did straight cath him x1 and met a little resistance at the prostate. Continue to monitor for urinary retention Consider Flomax Could be due to enlarged prostate. (4) Hypertension: Code(s): I10 - Essential (primary) hypertension Status: Chronic Assessment and Plan: continue losartan 100 mg daily (5) Hyperlipidemia: Code(s): E78.5 - Hyperlipidemia, unspecified Status: Acute Assessment and Plan: lipid panel showed total cholesterol 214 LDL 132 triglycerides 126 start on Lipitor 20 mg daily Plan Neurology is following closely, but due to scant coverage over the next week, there is a low threshold for transfer to [facility] for possible plasmapheresis. They would also be able to do EMG/NCS as inpatient, which we cannot do here at [place]. Discussed in detail with patient, who understands his condition and importance of expressing any worsening or changes, especially with the IVIG infusions. ? Patient seen and examined at bedside during my morning rounds ? Collaborated with patient's nurse at the bedside in detail and addressed all concerns ? Labs, electrolytes, radiology, investigations and test results reviewed ? Consult/Nursing/Ancilliary notes on the chart reviewed and appreciated ? Spoke with patient/family at the bedside and answered all the questions that they had Repeat labs in a.m. Electrolyte replacement as per protocol. Patient will be monitored very closely on the floor. Further recommendations as per the hospital course. Time Spent With Patient Time with patient: 15 - 25 minutes Subjective Date/time seen: 11/27/23 17:43 Interval history: Patient on day 3 of IV IG tolerating well and showing slow improvement. Still complains of tingling sensations with weakness in hands which is slowly improved. His hand bundle tier has improved and he is able to lift his legs more forcefully. Speech has improved as well. Review of Systems Review of Systems: 14 systems were reviewed with pertinent positives and negatives per HPI. Except as documented in the HPI/progress notes, all other systems were reviewed and are negative. All systems revi
[2023-11-27 19:35] LABS: Creatine Kinase 267 U/L (55-170)
[2023-11-28] VITALS (15 sets, daily range): BP systolic 121–144; BP diastolic 78–97; PULSE 72–107; RESP 18–20; TEMP 35.8–36.7; O2SAT 98–100
[2023-11-28 04:15] LABS: Basophils Percent Auto 0.6 % (0.2-1.2); Eosinophils Absolute Auto 0.1 K/mm3 (0-0.3); Hematocrit 46.7 % (42.0-52.0); Hemoglobin 15.1 g/dL (14.0-18.0); Immature Granulocyte Absolute 0.02 K/mm3 (0.00-0.031); Immature Granulocyte Percent A 0.3 % (0-0.5); Lymphocytes Absolute Auto 1.85 K/mm3 (0.9-3.2); Lymphocytes Percent Auto 27.2 % (18.3-44.2); Mean Corpuscular HGB Conc 32.3 g/dl (32-36); Mean Corpuscular Hemoglobin 27.8 pg (26-34); Mean Corpuscular Volume 85.8 fl (80-100); Mean Platelet Volume 11.9 fl (7.4-10.4); Monocytes Absolute Auto 0.7 K/mm3 (0.1-0.6); Monocytes Percent Auto 9.9 % (2.6-8.5); Neutrophils Absolute Auto 4.2 K/mm3 (1.3-6.7); Platelet Count Result 198 k/mm3 (150-375); Red Blood Count 5.44 M/mm3 (4.6-6.20); Red Cell Distribution Width 14.1 % (11.5-14.5); White Blood Count 6.8 K/mm3 (4.5-10.0)
[2023-11-28 04:27] LABS: Alanine Aminotransferase 72 U/L (6-50); Albumin Level 3.9 g/dL (3.5-5.1); Alkaline Phosphatase 71 U/L (38-126); Anion Gap 6 mmol/L (8-16); Aspartate Amino Transferase 61 U/L (17-59); Bilirubin,Total 0.7 mg/dL (0.2-1.3); Blood Urea Nitrogen 23 mg/dL (9-20); Calcium 9.6 mg/dL (8.4-10.2); Carbon Dioxide 26 mmol/L (22-30); Chloride 106 mmol/L (98-107); Creatine Kinase 248 U/L (55-170); Estimated CRCL calculation 77 ml/min; Estimated Glomerular Filt Rate > 60; Glucose 100 mg/dL (65-110); Potassium 4.8 mmol/L (3.4-5.0); Sodium 138 mmol/L (137-145)
[2023-11-28] MEDS: polyethylene glycoL 3350 17 GM POWD.PACK PO (09:45)
[2023-11-28] MEDS: ATORVASTATIN 20 MG TABLET PO (09:45)
[2023-11-28] MEDS: DOCUSATE SODIUM 100 MG CAPSULE PO ×2 (09:45→20:29)
[2023-11-28] MEDS: LOSARTAN POTASSIUM 100 MG TABLET PO (09:45)
[2023-11-28] MEDS: ENOXAPARIN 40 MG/0.4 ML SYRINGE SUB-Q (09:47)
[2023-11-28] MEDS: SODIUM CHLORIDE 0.9% IV 1,000 ML 100 ML IV CONT (11:03)
--- NOTE | 2023-11-28 14:09 | WPDNEUROPN ---
Subjective Date/time seen: 11/28/23 14:09 Exam Narrative: Remains awake and alert with normal and full speech oriented right and left previous diagnosis discussion has no specific questions extraocular movements are full with no nystagmus facial sensation intact facial grimace symmetrical tongue in the midline with no fasciculation motor examination revealed drift of the upper extremities the strength 3 to 4/5 though proximally more weak than the distal and 3 to 4/5 in the lower extremities more so distally and sluggish to absent deep tendon reflexes in courage to continue working with the physical therapy and the treatment is being continued as such. Objective Data Vital Signs Vital Signs: Vital Signs - 24 hr 11/27/23 16:00 11/27/23 16:00 11/27/23 18:00 Temperature 36.9 C Pulse Rate 104 H 102 H 93 Respiratory Rate 16 Blood Pressure 135/92 H Pulse Oximetry 99 Oxygen Delivery 11/27/23 20:47 11/27/23 20:00 11/27/23 22:00 Temperature 36.3 C L Pulse Rate 86 85 92 Respiratory Rate 18 Blood Pressure 141/93 H Pulse Oximetry 99 Oxygen Delivery 11/27/23 23:18 11/28/23 00:00 11/28/23 02:00 Temperature 36.3 C L Pulse Rate 82 75 83 Respiratory Rate 18 Blood Pressure 138/95 H Pulse Oximetry 99 Oxygen Delivery 11/28/23 04:00 11/28/23 04:00 11/28/23 05:06 Temperature 36.3 C L Pulse Rate 83 79 Respiratory Rate 18 Blood Pressure 121/89 Pulse Oximetry 99 Oxygen Delivery Room Air 11/28/23 06:00 11/28/23 07:40 11/28/23 08:33 Temperature 36.7 C Pulse Rate 80 92 Respiratory Rate 20 Blood Pressure 133/91 H Pulse Oximetry 100 99 Oxygen Delivery Room Air 11/28/23 11:16 11/28/23 08:00 11/28/23 08:00 Temperature Pulse Rate 104 H 95 Respiratory Rate 20 Blood Pressure 144/97 H Pulse Oximetry Oxygen Delivery Room Air 11/28/23 11:43 Temperature 35.8 C L Pulse Rate 87 Respiratory Rate 20 Blood Pressure 141/86 H Pulse Oximetry 100 Oxygen Delivery Intake/Output Intake/Output: Intake & Output 11/25/23 11/26/23 11/27/23 11/28/23 23:59 23:59 23:59 23:59 Intake Total 1940.0 1640.0 1710.0 1084.3 Output Total 500 1350 750 550 Balance 1440.0 290.0 960.0 534.3 Meds/Results Medications: Active Medications Generic Name Dose Route Start Last Admin Trade Name Freq PRN Reason Stop Dose Admin Acetaminophen 650 mg 11/21/23 12:58 11/23/23 17:43 Acetaminophen 325 Mg Tablet PO 650 mg Q4H PRN Administration Mild Pain (1-3) or Fever Hydrocodone Bitart/Acetaminophen 1 tab 11/21/23 12:58 Hydrocodone/Acetaminophen (*Crx) 5-325 Mg Tablet PO Q4H PRN Pain Rated 4-6 Atorvastatin Calcium 20 mg 11/24/23 09:00 11/28/23 09:45 Atorvastatin 20 Mg Tablet PO 20 mg DAILY DARIAN Administration Docusate Sodium 100 mg 11/24/23 21:00 11/28/23 09:45 Docusate Sodium 100 Mg Capsule PO 100 mg Q12HR DARIAN Administration Enoxaparin Sodium 40 mg 11/27/23 09:00 11/28/23 09:47 Enoxaparin 40 Mg/0.4 Ml Syringe SUB-Q 40 mg DAILY DARIAN Administration Immune Globulin 40 gm/ Immune 430 mls @ 32.4 mls/hr 11/25/23 09:00 11/28/23 12:10 Globulin 3 gm/ N/A IVPB 11/29/23 22:17 100 mls/hr DAILY DARIAN Infusion Sodium Chloride 1,000 mls @ 100 mls/hr 11/28/23 09:00 11/28/23 11:03 Normal Saline Iv IV CONT 100 mls/hr .Q10H DARIAN Administration Losartan Potassium 100 mg 11/22/23 09:00 11/28/23 09:45 Losartan Potassium 100 Mg Tablet PO 100 mg DAILY DARIAN Administration Ondansetron HCl 4 mg 11/21/23 12:58 Ondansetron Inj 4 Mg/2 Ml Vial IV PUSH Q4H PRN Nausea Polyethylene Glycol 17 gm 11/24/23 18:50 11/28/23 09:45 Polyethylene Glycol 3350 17 Gm Powd.Pack PO 17 gm QAM DARIAN Administration Radiology Results: ITS Impressions Head CT 11/21/23 11:16 IMPRESSION: 1. Normal brain. Cervical Spine CT 11/21/23 11:18 IMPRESSION: 1. Mild cervical spondylos
[2023-11-28 16:15] LABS: Creatine Kinase 233 U/L (55-170)
--- NOTE | 2023-11-28 18:13 | P.PNIM_ITS ---
Progress Note: A&P Assessment and Plan (1) Paresthesias: Code(s): R20.2 - Paresthesia of skin Status: Acute Assessment and Plan: * patient reporting weakness and numbness in his hands and feet for the past 2 weeks * neurology consulted - lumbar puncture * CSF studies showed normal cell count and normal protein levels. Protein levels can be normal in early Guillan [place]. CK was with mild elevation (415) -- could be from deconditioning. 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 * MRI of brain/ brainstem, cervical spine, lumbar spine, and thoracic spine unrevealing * Lactate Dehydrogenase and TSH are within normal limits * head CT negative * cervical spine CT showing mild cervical spondylosis * continuous cardiac monitoring * neurochecks Q 4 hours * HIV panel negative * Lipid panel elevated * Hgb A1C 5.0 Magnesium WNL * lyme disease pending * [place] virus negative * PT and OT ordered to eval and treat * Immunoglobulin levels WNL * Patient started on IVIG 0.4g/kg x 5 days ... Day 4/5 today * Assess response to IVIG daily, if no improvement, recommend transfer to higher level of care for possible plasmapheresis * Follow-up closely with Neurology for further management recommendations (2) Muscle weakness: Code(s): M62.81 - Muscle weakness (generalized) Status: Acute Assessment and Plan: * Aldolase and CPK are borderline elevated which is repeated * CPK is slowly downtrending * Patient has a mild bump in renal functions * Increase normal saline to 100 cc/hour * Repeat Aldolase level is pending * Trend CK levels daily (3) Urinary retention: Code(s): R33.9 - Retention of urine, unspecified Status: Resolved Assessment and Plan: * Patient unable to void this morning, nursing did bladder scan and noted 275ml of urine in bladder. They did straight cath him x1 and met a little resistance at the prostate. * Continue to monitor for urinary retention * Consider Flomax * Could be due to enlarged prostate. (4) Hypertension: Code(s): I10 - Essential (primary) hypertension Status: Chronic Assessment and Plan: * continue losartan 100 mg daily (5) Hyperlipidemia: Code(s): E78.5 - Hyperlipidemia, unspecified Status: Acute Assessment and Plan: * lipid panel showed total cholesterol 214 * LDL 132 * triglycerides 126 * start on Lipitor 20 mg daily Plan Neurology is following closely, and monitor response to IVIG. There is a low threshold for transfer to [facility] for possible plasmapheresis. They would also be able to do EMG/NCS as inpatient, which we cannot do here at [place]. Discussed in detail with patient, who understands his condition and importance of expressing any worsening or changes, especially with the IVIG infusions. ? Patient seen and examined at bedside during my morning rounds ? Collaborated with patient's nurse at the bedside in detail and addressed all concerns ? Labs, electrolytes, radiology, investigations and test results reviewed ? Consult/Nursing/Ancilliary notes on the chart reviewed and appreciated ? Spoke with patient/family at the bedside and answered all the questions that they had Repeat labs in a.m. Electrolyte replacement as per protocol. Patient will be monitored very closely on the floor. Further recommendations as per the hospital course. Time Spent With Patient Time with patient: 15 - 25 minutes Subjective Date/time seen: 11/27
--- NOTE | 2023-11-28 18:13 | PM.IMPN ---
Progress Note: A&P Assessment and Plan (1) Paresthesias: Code(s): R20.2 - Paresthesia of skin Status: Acute Assessment and Plan: patient reporting weakness and numbness in his hands and feet for the past 2 weeks neurology consulted - lumbar puncture CSF studies showed normal cell count and normal protein levels. Protein levels can be normal in early Guillan [place]. CK was with mild elevation (415) -- could be from deconditioning. 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 MRI of brain/ brainstem, cervical spine, lumbar spine, and thoracic spine unrevealing Lactate Dehydrogenase and TSH are within normal limits head CT negative cervical spine CT showing mild cervical spondylosis continuous cardiac monitoring neurochecks Q 4 hours HIV panel negative Lipid panel elevated Hgb A1C 5.0 Magnesium WNL lyme disease pending west nile virus negative PT and OT ordered to eval and treat Immunoglobulin levels WNL Patient started on IVIG 0.4g/kg x 5 days ... Day 4/5 today Assess response to IVIG daily, if no improvement, recommend transfer to higher level of care for possible plasmapheresis Follow-up closely with Neurology for further management recommendations (2) Muscle weakness: Code(s): M62.81 - Muscle weakness (generalized) Status: Acute Assessment and Plan: Aldolase and CPK are borderline elevated which is repeated CPK is slowly downtrending Patient has a mild bump in renal functions Increase normal saline to 100 cc/hour Repeat Aldolase level is pending Trend CK levels daily (3) Urinary retention: Code(s): R33.9 - Retention of urine, unspecified Status: Resolved Assessment and Plan: Patient unable to void this morning, nursing did bladder scan and noted 275ml of urine in bladder. They did straight cath him x1 and met a little resistance at the prostate. Continue to monitor for urinary retention Consider Flomax Could be due to enlarged prostate. (4) Hypertension: Code(s): I10 - Essential (primary) hypertension Status: Chronic Assessment and Plan: continue losartan 100 mg daily (5) Hyperlipidemia: Code(s): E78.5 - Hyperlipidemia, unspecified Status: Acute Assessment and Plan: lipid panel showed total cholesterol 214 LDL 132 triglycerides 126 start on Lipitor 20 mg daily Plan Neurology is following closely, and monitor response to IVIG. There is a low threshold for transfer to [facility] for [facility]mapheresis. They would also be able to do EMG/NCS as inpatient, which we cannot do here at [place]. Discussed in detail with patient, who understands his condition and importance of expressing any worsening or changes, especially with the IVIG infusions. ? Patient seen and examined at bedside during my morning rounds ? Collaborated with patient's nurse at the bedside in detail and addressed all concerns ? Labs, electrolytes, radiology, investigations and test results reviewed ? Consult/Nursing/Ancilliary notes on the chart reviewed and appreciated ? Spoke with patient/family at the bedside and answered all the questions that they had Repeat labs in a.m. Electrolyte replacement as per protocol. Patient will be monitored very closely on the floor. Further recommendations as per the hospital course. Time Spent With Patient Time with patient: 15 - 25 minutes Subjective Date/time seen: 11/28/23 18:13 Interval history: Patient on day 4 of IV IG tolerating well and showing slow improvement. Speech is almost back to normal. Still complains of tingling sensations in in his both hands which is slowly improving. 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 Review of Systems Review of Systems: All systems reviewed & are unremarkable except as noted in HPI and below Exam Narrative: General: In n
[2023-11-29] VITALS (17 sets, daily range): BP systolic 125–140; BP diastolic 84–98; PULSE 60–113; RESP 18–20; TEMP 36.1–37.2; O2SAT 98–100
[2023-11-29] MEDS: SODIUM CHLORIDE 0.9% IV 1,000 ML 100 ML IV CONT ×2 (00:50→10:00)
--- NOTE | 2023-11-29 04:55 | PCRCNOTE ---
NIF exercise performed, patient did excellent with collecting a -80.
[2023-11-29 05:10] LABS: Basophils Percent Auto 0.7 % (0.2-1.2); Eosinophils Absolute Auto 0.1 K/mm3 (0-0.3); Eosinophils Percent Auto 1.5 % (0-4.4); Hematocrit 44.9 % (42.0-52.0); Hemoglobin 14.2 g/dL (14.0-18.0); Immature Granulocyte Absolute 0.02 K/mm3 (0.00-0.031); Immature Granulocyte Percent A 0.3 % (0-0.5); Lymphocytes Absolute Auto 1.78 K/mm3 (0.9-3.2); Lymphocytes Percent Auto 29.5 % (18.3-44.2); Mean Corpuscular HGB Conc 31.6 g/dl (32-36); Mean Corpuscular Hemoglobin 27.7 pg (26-34); Mean Corpuscular Volume 87.5 fl (80-100); Mean Platelet Volume 11.7 fl (7.4-10.4); Monocytes Absolute Auto 0.7 K/mm3 (0.1-0.6); Monocytes Percent Auto 11.6 % (2.6-8.5); Neutrophils Absolute Auto 3.4 K/mm3 (1.3-6.7); Neutrophils Percent Auto 56.4 % (45.5-73.1); Platelet Count Result 185 k/mm3 (150-375); Red Blood Count 5.13 M/mm3 (4.6-6.20); Red Cell Distribution Width 13.6 % (11.5-14.5)
[2023-11-29 05:30] LABS: Alanine Aminotransferase 67 U/L (6-50); Albumin Level 3.6 g/dL (3.5-5.1); Alkaline Phosphatase 68 U/L (38-126); Anion Gap 1 mmol/L (8-16); Aspartate Amino Transferase 58 U/L (17-59); Bilirubin,Total 0.7 mg/dL (0.2-1.3); Blood Urea Nitrogen 21 mg/dL (9-20); Calcium 9.2 mg/dL (8.4-10.2); Carbon Dioxide 29 mmol/L (22-30); Chloride 109 mmol/L (98-107); Creatine Kinase 202 U/L (55-170); Estimated CRCL calculation 81 ml/min; Estimated Glomerular Filt Rate > 60; Glucose 97 mg/dL (65-110); Potassium 4.7 mmol/L (3.4-5.0); Sodium 139 mmol/L (137-145)
[2023-11-29 09:16] LABS: Immunoglobulin A 113 mg/dL (47-310); Immunoglobulin G 1819 mg/dL (600-1640); Immunoglobulin M 129 mg/dL (50-300)
[2023-11-29] MEDS: LOSARTAN POTASSIUM 100 MG TABLET PO (10:01)
[2023-11-29] MEDS: ENOXAPARIN 40 MG/0.4 ML SYRINGE SUB-Q (10:02)
[2023-11-29] MEDS: polyethylene glycoL 3350 17 GM POWD.PACK PO (10:02)
[2023-11-29] MEDS: DOCUSATE SODIUM 100 MG CAPSULE PO ×2 (10:02→20:40)
[2023-11-29] MEDS: ATORVASTATIN 20 MG TABLET PO (10:02)
--- NOTE | 2023-11-29 14:17 | PM.IMPN ---
Progress Note: A&P Assessment and Plan (1) Paresthesias: Code(s): R20.2 - Paresthesia of skin Status: Acute (2) Muscle weakness: Code(s): M62.81 - Muscle weakness (generalized) Status: Acute Assessment and Plan: (3) Urinary retention: Code(s): R33.9 - Retention of urine, unspecified Status: Resolved Assessment and Plan: (4) Hypertension: Code(s): I10 - Essential (primary) hypertension Status: Chronic (5) Hyperlipidemia: Code(s): E78.5 - Hyperlipidemia, unspecified Status: Acute Plan 38-year-old male with hypertension who presented to the emergency department for evaluation of muscle weakness and numbness/tingling in hands and feet. Neurology was consulted. Underwent lumbar puncture, CSF study showed normal cell count and normal protein levels. Mildly elevated CPK, 415. MRI of brain/brainstem, cervical spine, lumbar spine and thoracic spine were unrevealing. Head CT, cervical CT were unremarkable HIV panel was negative. lyme's disease pending, West Nile virus negative status post 5 days of IVIG, last day 11/29/2023. 1. Weakness/paresthesias: Status post IVIG as mentioned above PT/OT Follow-up with Neurology recommendations 2. History of hypertension: Continue with losartan 3. Code status: Full 4. DVT prophylaxis: Lovenox 5.Disposition:pending improvement Time Spent With Patient Time with patient: 15 - 25 minutes Subjective Date/time seen: 11/29/23 14:17 Interval history: No acute events overnight Review of Systems Review of Systems: All systems reviewed & are unremarkable except as noted in HPI and below Exam Narrative: General: In no acute distress, well nourished Head: atraumatic, no encephalopathy Eyes: EOMI, PERRLA, sclera clear, denies vision changes ENT: moist mucous membranes Neck: supple, no JVD, no adenopathy, trachea midline Cardiac:RRR. No murmur, gallops or friction rubs, peripheral pulses intact. Respiratory: Lungs clear to auscultation Gastrointestinal: soft, non-distended, non-tender, normoactive bowel sounds. Extremities: moves all extremities well, no edema, good ROM, strength 4/5 Skin: clean, dry, intact. No wounds or lesions. Neuro: Alert and oriented x4, cranial nerves intact, no neuro deficits. Hand and leg strength slowly improving, Psych: normal mood, normal affect, interactive Objective Data Vital Signs Vital Signs: Vital Signs - 24 hr 11/28/23 15:57 11/28/23 16:00 11/28/23 20:00 Temperature 97.5 F L 97.6 F Pulse Rate 84 88 Respiratory Rate 20 18 Blood Pressure 140/89 136/83 Pulse Oximetry 99 98 Oxygen Delivery Room Air 11/28/23 20:00 11/28/23 20:00 11/28/23 22:00 Temperature Pulse Rate 107 H 91 Respiratory Rate Blood Pressure Pulse Oximetry Oxygen Delivery Room Air 11/28/23 23:37 11/29/23 00:00 11/29/23 00:00 Temperature 97.6 F Pulse Rate 72 78 Respiratory Rate 18 Blood Pressure 132/78 Pulse Oximetry 98 Oxygen Delivery Room Air 11/29/23 02:00 11/29/23 03:53 11/29/23 04:00 Temperature 97.6 F Pulse Rate 80 76 79 Respiratory Rate 18 Blood Pressure 130/84 Pulse Oximetry 98 Oxygen Delivery 11/29/23 04:00 11/29/23 06:00 11/29/23 07:52 Temperature 97.1 F L Pulse Rate 60 68 Respiratory Rate 18 Blood Pressure 140/89 Pulse Oximetry 100 Oxygen Delivery Room Air 11/29/23 11:32 11/29/23 08:00 11/29/23 10:00 Temperature 96.9 F L Pulse Rate 68 82 113 H Respiratory Rate 18 Blood Pressure 138/84 Pulse Oximetry 100 Oxygen Delivery 11/29/23 12:00 Temperature Pulse Rate 77 Respiratory Rate Blood Pressure Pulse Oximetry Oxygen Delivery Intake/Output Intake/Output: Intake & Output 11/26/23 11/27/23 11/28/23 11/29/23 23:59 23:59 23:59 23:59 Intake Total 1640.0 1710.0 2890.0 2086.6 Output Total 8092 934 1808 1150 Balance 290.0 960.0 1615.0 936.6 Me
[2023-11-29 20:53] LABS: Albumin, CSF 26.2 mg/dL (8.0-42.0); Albumin, Serum 4.2 g/dL (3.6-5.1); IgG Index, CSF 0.52 (<0.70); IgG, CSF 4.9 mg/dL (0.8-7.7); Immunoglobulin G, Serum 1500 mg/dL (600-1640); Myelin Basic Protein, CSF <2.0 mcg/L (<=4.0); Oligoclonal Bands (IgG), CSF Absent (Absent); Synthesis Rate IgG, CSF -1.9 mg/24 h (-9.9-3.3)
[2023-11-30] VITALS (11 sets, daily range): BP systolic 141–161; BP diastolic 90–100; PULSE 62–95; RESP 18–20; TEMP 36.4–37.4; O2SAT 99–100
[2023-11-30 05:07] LABS: Basophils Percent Auto 0.7 % (0.2-1.2); Eosinophils Absolute Auto 0.1 K/mm3 (0-0.3); Hematocrit 43.4 % (42.0-52.0); Hemoglobin 13.8 g/dL (14.0-18.0); Immature Granulocyte Absolute 0.01 K/mm3 (0.00-0.031); Immature Granulocyte Percent A 0.2 % (0-0.5); Lymphocytes Absolute Auto 1.42 K/mm3 (0.9-3.2); Lymphocytes Percent Auto 24.1 % (18.3-44.2); Mean Corpuscular HGB Conc 31.8 g/dl (32-36); Mean Corpuscular Hemoglobin 27.5 pg (26-34); Mean Corpuscular Volume 86.6 fl (80-100); Mean Platelet Volume 11.9 fl (7.4-10.4); Monocytes Absolute Auto 0.7 K/mm3 (0.1-0.6); Neutrophils Absolute Auto 3.7 K/mm3 (1.3-6.7); Platelet Count Result 185 k/mm3 (150-375); Red Blood Count 5.01 M/mm3 (4.6-6.20); Red Cell Distribution Width 13.4 % (11.5-14.5); White Blood Count 5.9 K/mm3 (4.5-10.0)
[2023-11-30 05:21] LABS: Alanine Aminotransferase 75 U/L (6-50); Albumin Level 3.6 g/dL (3.5-5.1); Alkaline Phosphatase 75 U/L (38-126); Anion Gap 2 mmol/L (8-16); Aspartate Amino Transferase 61 U/L (17-59); Bilirubin,Total 0.7 mg/dL (0.2-1.3); Blood Urea Nitrogen 22 mg/dL (9-20); Calcium 9.4 mg/dL (8.4-10.2); Carbon Dioxide 29 mmol/L (22-30); Chloride 107 mmol/L (98-107); Estimated CRCL calculation 81 ml/min; Estimated Glomerular Filt Rate > 60; Glucose 93 mg/dL (65-110); Potassium 4.3 mmol/L (3.4-5.0); Sodium 138 mmol/L (137-145)
[2023-11-30] MEDS: DOCUSATE SODIUM 100 MG CAPSULE PO (09:46)
[2023-11-30] MEDS: polyethylene glycoL 3350 17 GM POWD.PACK PO (09:47)
[2023-11-30] MEDS: ENOXAPARIN 40 MG/0.4 ML SYRINGE SUB-Q (09:47)
[2023-11-30] MEDS: ATORVASTATIN 20 MG TABLET PO (09:47)
[2023-11-30] MEDS: LOSARTAN POTASSIUM 100 MG TABLET PO (09:47)
--- NOTE | 2023-11-30 10:23 | PCRCNOTE ---
NIF > 80 cmH20
--- NOTE | 2023-11-30 12:24 | WPDNEUROPN ---
Subjective Date/time seen: 11/30/23 12:24 Interval history: 38 years old right-handed male with GBS responded very well to the IVIG 0.4gram/kilogram for 5 days with gradual improvement in the proximal and distal muscles but is still 4/5 strength bilaterally being processed for the transfer to the rehab for the ongoing extensive physical therapy and occupation therapy mentally remains awake alert oriented x3 with normal and fluent speech without evidence of dysphagia or dysarthria or dysphonia the cranial examination is normal without any nystagmus or complaints of diplopia breathing regularly normally without any assistive device and the strength is 3 to 4/5 proximally and distally more involvement of the proximal muscles of the upper extremities reflexes are still sluggish. All the pros and cons were discussed with him and he will be likely transfer to the rehab for all long-term therapy Objective Data Vital Signs Vital Signs: Vital Signs - 24 hr 11/29/23 14:00 11/29/23 15:45 11/29/23 16:00 Temperature 37.2 C Pulse Rate 96 76 77 Respiratory Rate 20 Blood Pressure 139/86 Pulse Oximetry 100 Oxygen Delivery 11/29/23 18:00 11/29/23 19:07 11/29/23 20:00 Temperature 36.7 C Pulse Rate 87 77 89 Respiratory Rate 18 Blood Pressure 125/98 H Pulse Oximetry 98 Oxygen Delivery 11/29/23 20:00 11/29/23 22:00 11/30/23 00:02 Temperature 36.7 C Pulse Rate 75 66 Respiratory Rate 18 Blood Pressure 161/97 H Pulse Oximetry 100 Oxygen Delivery Room Air 11/30/23 00:00 11/30/23 00:00 11/30/23 02:00 Temperature Pulse Rate 79 72 Respiratory Rate Blood Pressure Pulse Oximetry Oxygen Delivery Room Air 11/30/23 04:30 11/30/23 04:00 11/30/23 04:00 Temperature 36.7 C Pulse Rate 63 62 Respiratory Rate 18 Blood Pressure 141/92 H Pulse Oximetry 100 Oxygen Delivery Room Air 11/30/23 06:00 11/30/23 08:34 11/30/23 08:00 Temperature 36.8 C Pulse Rate 69 88 87 Respiratory Rate 20 Blood Pressure 150/93 H Pulse Oximetry 100 Oxygen Delivery 11/30/23 10:00 11/30/23 08:00 Temperature Pulse Rate 95 Respiratory Rate Blood Pressure Pulse Oximetry Oxygen Delivery Room Air Intake/Output Intake/Output: Intake & Output 11/27/23 11/28/23 11/29/23 11/30/23 23:59 23:59 23:59 23:59 Intake Total 1710.0 2890.0 3796.6 540 Output Total 750 1275 1575 1425 Balance 960.0 1615.0 2221.6 -885 Meds/Results Medications: Active Medications Generic Name Dose Route Start Last Admin Trade Name Freq PRN Reason Stop Dose Admin Acetaminophen 650 mg 11/21/23 12:58 11/23/23 17:43 Acetaminophen 325 Mg Tablet PO 650 mg Q4H PRN Administration Mild Pain (1-3) or Fever Hydrocodone Bitart/Acetaminophen 1 tab 11/21/23 12:58 Hydrocodone/Acetaminophen (*Crx) 5-325 Mg Tablet PO Q4H PRN Pain Rated 4-6 Atorvastatin Calcium 20 mg 11/24/23 09:00 11/30/23 09:47 Atorvastatin 20 Mg Tablet PO 20 mg DAILY DARIAN Administration Docusate Sodium 100 mg 11/24/23 21:00 11/30/23 09:46 Docusate Sodium 100 Mg Capsule PO 100 mg Q12HR DARIAN Administration Enoxaparin Sodium 40 mg 11/27/23 09:00 11/30/23 09:47 Enoxaparin 40 Mg/0.4 Ml Syringe SUB-Q 40 mg DAILY DARIAN Administration Losartan Potassium 100 mg 11/22/23 09:00 11/30/23 09:47 Losartan Potassium 100 Mg Tablet PO 100 mg DAILY DARIAN Administration Ondansetron HCl 4 mg 11/21/23 12:58 Ondansetron Inj 4 Mg/2 Ml Vial IV PUSH Q4H PRN Nausea Polyethylene Glycol 17 gm 11/24/23 18:50 11/30/23 09:47 Polyethylene Glycol 3350 17 Gm Powd.Pack PO 17 gm QAM DARIAN Administration Radiology Results: ITS Impressions Head CT 11/21/23 11:16 IMPRESSION: 1. Normal brain. Cervical Spine CT 11/21/23 11:18 IMPRESSION: 1. Mild cervical spondylosis. Brain MRI 11/22/23 13:49 IMPRESSION: 1. Normal brain. Lumbar Spine MR
[2023-11-30] MEDS: ACETAMINOPHEN 325 MG TABLET 650 MG PO (13:58)
--- NOTE | 2023-11-30 15:41 | PC.NURSE ---
This patient, Anton Lozano, was transferred to [302 ] on 11/30/23 at 1533. Personal belongings sent with patient. Report given to [Quin COURTNEY ]. Appropriate documentation sent with patient.
--- NOTE | 2023-11-30 15:53 | PC.NURSE ---
Patient transferred to room 302 from IMU
--- NOTE | 2023-11-30 18:20 | P.PNIM_ITS ---
Progress Note: A&P Assessment and Plan (1) Paresthesias: Code(s): R20.2 - Paresthesia of skin Status: Acute Assessment and Plan: * patient reporting weakness and numbness in his hands and feet for the past 2 weeks * neurology consulted - lumbar puncture * CSF studies showed normal cell count and normal protein levels. Protein levels can be normal in early Guillan [place]. CK was with mild elevation (415) -- could be from deconditioning. 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 * MRI of brain/ brainstem, cervical spine, lumbar spine, and thoracic spine unrevealing * Lactate Dehydrogenase and TSH are within normal limits * head CT negative * cervical spine CT showing mild cervical spondylosis * continuous cardiac monitoring * neurochecks Q 4 hours * HIV panel negative * Lipid panel elevated * Hgb A1C 5.0 Magnesium WNL * lyme disease pending * west nile virus negative * PT and OT ordered to eval and treat * Immunoglobulin levels WNL * Patient finshed on IVIG 0.4g/kg x 5 days * Patient good response to IVIG * Still complains of numbness in the hands. 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 leg strength have improved significantly and almost approaching normal * Patient de-conditioned due to inability to move his arms and legs meaningfully over last week or so * Participating with physical therapy (2) Muscle weakness: Code(s): M62.81 - Muscle weakness (generalized) Status: Acute Assessment and Plan: * Aldolase and CPK are borderline elevated which is repeated * CPK is slowly downtrending * Patient has a mild bump in renal functions * Increase normal saline to 100 cc/hour * Repeat Aldolase level is normal * Trend CK levels daily (3) Urinary retention: Code(s): R33.9 - Retention of urine, unspecified Status: Resolved Assessment and Plan: * Patient unable to void this morning, nursing did bladder scan and noted 275ml of urine in bladder. They did straight cath him x1 and met a little resistance at the prostate. * Continue to monitor for urinary retention * Consider Flomax * Could be due to enlarged prostate. (4) Hypertension: Code(s): I10 - Essential (primary) hypertension Status: Chronic Assessment and Plan: * continue losartan 100 mg daily (5) Hyperlipidemia: Code(s): E78.5 - Hyperlipidemia, unspecified Status: Acute Assessment and Plan: * lipid panel showed total cholesterol 214 * LDL 132 * triglycerides 126 * start on Lipitor 20 mg daily (6) MARCIANO (acute kidney injury): Code(s): N17.9 - Acute kidney failure, unspecified Status: Acute Assessment and Plan: * Patient's creatinine level is slowly downtrending * Gentle IV hydration ordered with normal saline at 100 cc/hour for 1000cc * Strict input and output monitoring * Monitor renal functions closely Plan Patient had significant response to IVIG for 5 days. Continues to improve. Patient de-conditioned due to inability to move his arms and legs meaningfully over last week or so. Working physical therapy. DC planning to residential facility in the next day or so once arrangements are made. ? Patient seen and examined at bedside during my morning rounds ? Collaborated with patient's nurse at the bedside in detail and addressed all concerns ? Labs, electrolytes, radiology, investigations and test results reviewed ? Consult/Nursing/Ancill
--- NOTE | 2023-11-30 18:20 | PM.IMPN ---
Progress Note: A&P Assessment and Plan (1) Paresthesias: Code(s): R20.2 - Paresthesia of skin Status: Acute Assessment and Plan: patient reporting weakness and numbness in his hands and feet for the past 2 weeks neurology consulted - lumbar puncture CSF studies showed normal cell count and normal protein levels. Protein levels can be normal in early Guillan [place]. CK was with mild elevation (415) -- could be from deconditioning. 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 MRI of brain/ brainstem, cervical spine, lumbar spine, and thoracic spine unrevealing Lactate Dehydrogenase and TSH are within normal limits head CT negative cervical spine CT showing mild cervical spondylosis continuous cardiac monitoring neurochecks Q 4 hours HIV panel negative Lipid panel elevated Hgb A1C 5.0 Magnesium WNL lyme disease pending west nile virus negative PT and OT ordered to eval and treat Immunoglobulin levels WNL Patient finshed on IVIG 0.4g/kg x 5 days Patient good response to IVIG Still complains of numbness in the hands. 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 significantly and almost approaching normal Patient de-conditioned due to inability to move his arms and legs meaningfully over last week or so Participating with physical therapy (2) Muscle weakness: Code(s): M62.81 - Muscle weakness (generalized) Status: Acute Assessment and Plan: Aldolase and CPK are borderline elevated which is repeated CPK is slowly downtrending Patient has a mild bump in renal functions Increase normal saline to 100 cc/hour Repeat Aldolase level is normal Trend CK levels daily (3) Urinary retention: Code(s): R33.9 - Retention of urine, unspecified Status: Resolved Assessment and Plan: Patient unable to void this morning, nursing did bladder scan and noted 275ml of urine in bladder. They did straight cath him x1 and met a little resistance at the prostate. Continue to monitor for urinary retention Consider Flomax Could be due to enlarged prostate. (4) Hypertension: Code(s): I10 - Essential (primary) hypertension Status: Chronic Assessment and Plan: continue losartan 100 mg daily (5) Hyperlipidemia: Code(s): E78.5 - Hyperlipidemia, unspecified Status: Acute Assessment and Plan: lipid panel showed total cholesterol 214 LDL 132 triglycerides 126 start on Lipitor 20 mg daily (6) MARCIANO (acute kidney injury): Code(s): N17.9 - Acute kidney failure, unspecified Status: Acute Assessment and Plan: Patient's creatinine level is slowly downtrending Gentle IV hydration ordered with normal saline at 100 cc/hour for 1000cc Strict input and output monitoring Monitor renal functions closely Plan Patient had significant response to IVIG for 5 days. Continues to improve. Patient de-conditioned due to inability to move his arms and legs meaningfully over last week or so. Working physical therapy. DC planning to intermediate facility in the next day or so once arrangements are made. ? Patient seen and examined at bedside during my morning rounds ? Collaborated with patient's nurse at the bedside in detail and addressed all concerns ? Labs, electrolytes, radiology, investigations and test results reviewed ? Consult/Nursing/Ancilliary notes on the chart reviewed and appreciated ? Spoke with patient/family at the bedside and answered all the questions that they had Repeat labs in a.m. Electrolyte replacement as per protocol. Patient will be monitored very closely on the floor. Further recommendations as per the hospital course. I am signing off. Patient's medical care will be taken over by my covering hospitalist attending in am. Time Spent With Patient Time with patileandro
[2023-11-30] MEDS: SODIUM CHLORIDE 0.9% IV 1,000 ML 100 ML IV CONT (18:39)
[2023-12-01 06:04] VITALS: BP 139/94; PULSE 78; RESP 18; TEMP 36.4; O2SAT 100
[2023-12-01 06:56] LABS: Basophils Absolute Auto 0.1 K/mm3 (0.0-0.1); Basophils Percent Auto 0.9 % (0.2-1.2); Eosinophils Absolute Auto 0.1 K/mm3 (0-0.3); Eosinophils Percent Auto 1.4 % (0-4.4); Hematocrit 43.9 % (42.0-52.0); Hemoglobin 14.1 g/dL (14.0-18.0); Immature Granulocyte Absolute 0.01 K/mm3 (0.00-0.031); Immature Granulocyte Percent A 0.2 % (0-0.5); Lymphocytes Absolute Auto 1.64 K/mm3 (0.9-3.2); Lymphocytes Percent Auto 28.4 % (18.3-44.2); Mean Corpuscular HGB Conc 32.1 g/dl (32-36); Mean Corpuscular Hemoglobin 27.6 pg (26-34); Mean Corpuscular Volume 86.1 fl (80-100); Mean Platelet Volume 12.3 fl (7.4-10.4); Monocytes Absolute Auto 0.7 K/mm3 (0.1-0.6); Monocytes Percent Auto 12.6 % (2.6-8.5); Neutrophils Absolute Auto 3.3 K/mm3 (1.3-6.7); Neutrophils Percent Auto 56.5 % (45.5-73.1); Platelet Count Result 191 k/mm3 (150-375); Red Cell Distribution Width 13.3 % (11.5-14.5); White Blood Count 5.8 K/mm3 (4.5-10.0)
[2023-12-01 07:08] LABS: Alanine Aminotransferase 76 U/L (6-50); Albumin Level 3.6 g/dL (3.5-5.1); Alkaline Phosphatase 73 U/L (38-126); Anion Gap 1 mmol/L (8-16); Aspartate Amino Transferase 63 U/L (17-59); Bilirubin,Total 0.6 mg/dL (0.2-1.3); Blood Urea Nitrogen 18 mg/dL (9-20); CRP < 0.5 mg/dL (<1.0); Calcium 9.4 mg/dL (8.4-10.2); Carbon Dioxide 30 mmol/L (22-30); Chloride 106 mmol/L (98-107); Estimated CRCL calculation 86 ml/min; Estimated Glomerular Filt Rate > 60; Glucose 91 mg/dL (65-110); Potassium 4.3 mmol/L (3.4-5.0); Sodium 137 mmol/L (137-145)
--- NOTE | 2023-12-01 08:49 | PCRCNOTE ---
NIF > 80 cmH20
[2023-12-01 08:50] VITALS: BP 139/106; PULSE 89; O2SAT 100
[2023-12-01] MEDS: LOSARTAN POTASSIUM 100 MG TABLET PO (08:50)
[2023-12-01] MEDS: DOCUSATE SODIUM 100 MG CAPSULE PO ×2 (08:50→19:59)
[2023-12-01] MEDS: ATORVASTATIN 20 MG TABLET PO (08:50)
[2023-12-01] MEDS: ENOXAPARIN 40 MG/0.4 ML SYRINGE SUB-Q (08:51)
--- NOTE | 2023-12-01 09:54 | PCNWS ---
Weekly nutritional screen. Patient is tolerating current heart healthy diet with adequate intake 100%. No weight loss reported. No nutritional needs at this time.
--- NOTE | 2023-12-01 11:00 | WPDNEUROPN ---
Subjective Date/time seen: 12/01/23 11:00 Interval history: 38 years old right-handed male with [place] but a syndrome responding very well to the therapy on today's examination he is awake alert able to follow all the verbal commands appropriately and his speech is not dysphasic not dysarthric and not dysphonic, extraocular movements are full without any nystagmus, he is able to raise both upper extremities overhead by himself with strength of 4/5 he is able to stand still with assistance and the reflects a still sluggish he has control on his bowel and bladder he is definitely showing the signs of improvement and is awaiting for the transfer to the rehab discussed with him as well as his mother Objective Data Vital Signs Vital Signs: Vital Signs - 24 hr 11/30/23 16:00 11/30/23 21:17 11/30/23 20:00 Temperature 36.4 C L 37.4 C Pulse Rate 78 79 Respiratory Rate 18 18 Blood Pressure 151/100 H 148/90 H Pulse Oximetry 99 99 Oxygen Delivery Room Air 12/01/23 06:04 Temperature 36.4 C Pulse Rate 78 Respiratory Rate 18 Blood Pressure 139/94 H Pulse Oximetry 100 Oxygen Delivery Intake/Output Intake/Output: Intake & Output 11/28/23 11/29/23 11/30/23 12/01/23 23:59 23:59 23:59 23:59 Intake Total 2890.0 3796.6 1520 476 Output Total 1275 1575 1425 600 Balance 1615.0 2221.6 95 -124 Meds/Results Medications: Active Medications Generic Name Dose Route Start Last Admin Trade Name Freq PRN Reason Stop Dose Admin Acetaminophen 650 mg 11/21/23 12:58 11/30/23 13:58 Acetaminophen 325 Mg Tablet PO 650 mg Q4H PRN Administration Mild Pain (1-3) or Fever Hydrocodone Bitart/Acetaminophen 1 tab 11/21/23 12:58 Hydrocodone/Acetaminophen (*Crx) 5-325 Mg Tablet PO Q4H PRN Pain Rated 4-6 Atorvastatin Calcium 20 mg 11/24/23 09:00 12/01/23 08:50 Atorvastatin 20 Mg Tablet PO 20 mg DAILY DARIAN Administration Docusate Sodium 100 mg 11/24/23 21:00 12/01/23 08:50 Docusate Sodium 100 Mg Capsule PO 100 mg Q12HR DARIAN Administration Enoxaparin Sodium 40 mg 11/27/23 09:00 12/01/23 08:51 Enoxaparin 40 Mg/0.4 Ml Syringe SUB-Q 40 mg DAILY DARIAN Administration Losartan Potassium 100 mg 11/22/23 09:00 12/01/23 08:50 Losartan Potassium 100 Mg Tablet PO 100 mg DAILY DARIAN Administration Miscellaneous Information 1 each 11/30/23 00:01 [place] Needs To Be Renewed Or It Will Automatically Discontinue. XX 12/30/23 00:00 CLARIFY DARIAN Ondansetron HCl 4 mg 11/21/23 12:58 Ondansetron Inj 4 Mg/2 Ml Vial IV PUSH Q4H PRN Nausea Polyethylene Glycol 17 gm 11/24/23 18:50 12/01/23 09:04 Polyethylene Glycol 3350 17 Gm Powd.Pack PO Not Given QAM [facility] Radiology Results: ITS Impressions Head CT 11/21/23 11:16 IMPRESSION: 1. Normal brain. Cervical Spine CT 11/21/23 11:18 IMPRESSION: 1. Mild cervical spondylosis. Brain MRI 11/22/23 13:49 IMPRESSION: 1. Normal brain. Lumbar Spine MRI 11/22/23 13:51 IMPRESSION: 1. Mild lumbar spondylosis. Cervical Spine MRI 11/22/23 14:03 IMPRESSION: 1. Mild cervical spondylosis. Thoracic Spine MRI 11/22/23 14:08 IMPRESSION: 1. Mild thoracic facet joint osteoarthritis. Lumbar Puncture Fluoroscopy 11/23/23 14:18 IMPRESSION: 1. Successful fluoro-guided lumbar puncture. Labs Labs: Laboratory Results - last 24 hr 12/01/23 06:05 WBC 5.8 RBC 5.10 Hgb 14.1 Hct 43.9 MCV 86.1 MCH 27.6 MCHC 32.1 RDW 13.3 Plt Count 191 MPV 12.3 H Immature Gran % (Auto) 0.2 Neut % (Auto) 56.5 Lymph % (Auto) 28.4 [place] % (Auto) 12.6 H Eos % (Auto) 1.4 Baso % (Auto) 0.9 Lymph # (Auto) 1.64 [place] # (Auto) 0.7 H Eos # (Auto) 0.1 Baso # (Auto) 0.1 Abs Immat Gran (auto) 0.01 Absolute Neuts (auto) 3.3 Absolute Nucleated RBC 0.000 Nucleated RBC % 0.0 Sodium 137 Potassium 4.3 Chloride 106 Carbon Dioxide 30 Anion Gap 1 L BUN 18 Crea
[2023-12-01 14:00] VITALS: BP 131/82; PULSE 107; RESP 18; TEMP 36.1; O2SAT 98
--- NOTE | 2023-12-01 14:13 | P.PNIM_ITS ---
Progress Note: A&P Assessment and Plan (1) Paresthesias: Code(s): R20.2 - Paresthesia of skin Status: Acute Assessment and Plan: * patient reporting weakness and numbness in his hands and feet for the past 2 weeks * neurology consulted - lumbar puncture * CSF studies showed normal cell count and normal protein levels. Protein levels can be normal in early Gu[place]an [place]. CK was with mild elevation (415) -- could be from deconditioning. 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 * MRI of brain/ brainstem, cervical spine, lumbar spine, and thoracic spine unrevealing * Lactate Dehydrogenase and TSH are within normal limits * head CT negative * cervical spine CT showing mild cervical spondylosis * continuous cardiac monitoring * neurochecks Q 4 hours * HIV panel negative * Lipid panel elevated * Hgb A1C 5.0 Magnesium WNL * lyme disease pending * west nile virus negative * PT and OT ordered to eval and treat * Immunoglobulin levels WNL * Patient finshed on IVIG 0.4g/kg x 5 days * Patient good response to IVIG * Still complains of numbness in the hands. 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 significantly and almost approaching normal * Patient de-conditioned due to inability to move his arms and legs meaningfully over last week or so * Participating with physical therapy * 11/30 awaiting insurance authorization to go to [place] (2) Muscle weakness: Code(s): M62.81 - Muscle weakness (generalized) Status: Acute Assessment and Plan: * Aldolase and CPK are borderline elevated which is repeated * CPK is slowly downtrending * Patient has a mild bump in renal functions * Repeat Aldolase level is normal * Trend CK levels daily (3) Urinary retention: Code(s): R33.9 - Retention of urine, unspecified Status: Resolved Assessment and Plan: * Patient unable to void this morning, nursing did bladder scan and noted 275ml of urine in bladder. They did straight cath him x1 and met a little resistance at the prostate. * Continue to monitor for urinary retention * Consider Flomax * Could be due to enlarged prostate. (4) Hypertension: Code(s): I10 - Essential (primary) hypertension Status: Chronic Assessment and Plan: * continue losartan 100 mg daily (5) Hyperlipidemia: Code(s): E78.5 - Hyperlipidemia, unspecified Status: Acute Assessment and Plan: * lipid panel showed total cholesterol 214 * LDL 132 * triglycerides 126 * start on Lipitor 20 mg daily (6) MARCIANO (acute kidney injury): Code(s): N17.9 - Acute kidney failure, unspecified Status: Acute Assessment and Plan: * Patient's creatinine level is slowly downtrending * Gentle IV hydration ordered with normal saline at 100 cc/hour for 1000cc * sp hydration Plan Patient had significant response to IVIG for 5 days. Continues to improve. Patient de-conditioned due to inability to move his arms and legs meaningfully over last week or so. Working physical therapy. DC planning to [place] in the next day or so once arrangements are made. Subjective Date/time seen: 12/01/23 14:13 Interval history: Patient finished 5 days of IV IG, tolerated well and showing slow improvement. Speech is fully back to normal. Still complains of tingling sensations in in his both hands which is slowly improving. 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
--- NOTE | 2023-12-01 14:13 | PM.IMPN ---
Progress Note: A&P Assessment and Plan (1) Paresthesias: Code(s): R20.2 - Paresthesia of skin Status: Acute Assessment and Plan: patient reporting weakness and numbness in his hands and feet for the past 2 weeks neurology consulted - lumbar puncture CSF studies showed normal cell count and normal protein levels. Protein levels can be normal in early Guillan [place]. CK was with mild elevation (415) -- could be from deconditioning. 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 MRI of brain/ brainstem, cervical spine, lumbar spine, and thoracic spine unrevealing Lactate Dehydrogenase and TSH are within normal limits head CT negative cervical spine CT showing mild cervical spondylosis continuous cardiac monitoring neurochecks Q 4 hours HIV panel negative Lipid panel elevated Hgb A1C 5.0 Magnesium WNL lyme disease pending west nile virus negative PT and OT ordered to eval and treat Immunoglobulin levels WNL Patient finshed on IVIG 0.4g/kg x 5 days Patient good response to IVIG Still complains of numbness in the hands. 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, hand case hardener, arm strength and leg strength have improved significantly and almost approaching normal Patient de-conditioned due to inability to move his arms and legs meaningfully over last week or so Participating with physical therapy 11/30 awaiting insurance authorization to go to [place] (2) Muscle weakness: Code(s): M62.81 - Muscle weakness (generalized) Status: Acute Assessment and Plan: Aldolase and CPK are borderline elevated which is repeated CPK is slowly downtrending Patient has a mild bump in renal functions Repeat Aldolase level is normal Trend CK levels daily (3) Urinary retention: Code(s): R33.9 - Retention of urine, unspecified Status: Resolved Assessment and Plan: Patient unable to void this morning, nursing did bladder scan and noted 275ml of urine in bladder. They did straight cath him x1 and met a little resistance at the prostate. Continue to monitor for urinary retention Consider Flomax Could be due to enlarged prostate. (4) Hypertension: Code(s): I10 - Essential (primary) hypertension Status: Chronic Assessment and Plan: continue losartan 100 mg daily (5) Hyperlipidemia: Code(s): E78.5 - Hyperlipidemia, unspecified Status: Acute Assessment and Plan: lipid panel showed total cholesterol 214 LDL 132 triglycerides 126 start on Lipitor 20 mg daily (6) MARCIANO (acute kidney injury): Code(s): N17.9 - Acute kidney failure, unspecified Status: Acute Assessment and Plan: Patient's creatinine level is slowly downtrending Gentle IV hydration ordered with normal saline at 100 cc/hour for 1000cc sp hydration Plan Patient had significant response to IVIG for 5 days. Continues to improve. Patient de-conditioned due to inability to move his arms and legs meaningfully over last week or so. Working physical therapy. DC planning to [place] in the next day or so once arrangements are made. Subjective Date/time seen: 12/01/23 14:13 Interval history: Patient finished 5 days of IV IG, tolerated well and showing slow improvement. Speech is fully back to normal. Still complains of tingling sensations in in his both hands which is slowly improving. His weakness in hands, hand case hardener and legs have all improved. Numbness in feet has significantly improved as well. He is participating with physical therapy. Awaiting insurance auth to Dc to [place] Blood pressures running bit high today Review of Systems Review of Systems: Numbness in hands and feet Exam Narrative: General: In no acute distress, well nourished Head: atraumatic, no encephalopathy Eyes: EOMI, PERRLA, sclera clear, denies vision changes ENT: moist mucous
[2023-12-01 20:00] VITALS: PULSE 78; RESP 16; O2SAT 99
[2023-12-01 20:41] VITALS: BP 134/81; PULSE 78; RESP 16; TEMP 37.1; O2SAT 99
[2023-12-02 05:08] VITALS: BP 125/80; PULSE 66; RESP 16; TEMP 36.4; O2SAT 99
[2023-12-02 06:52] LABS: Basophils Absolute Auto 0.1 K/mm3 (0.0-0.1); Basophils Percent Auto 0.8 % (0.2-1.2); Eosinophils Absolute Auto 0.1 K/mm3 (0-0.3); Hematocrit 44.6 % (42.0-52.0); Hemoglobin 14.3 g/dL (14.0-18.0); Immature Granulocyte Absolute 0.02 K/mm3 (0.00-0.031); Immature Granulocyte Percent A 0.3 % (0-0.5); Lymphocytes Absolute Auto 1.99 K/mm3 (0.9-3.2); Lymphocytes Percent Auto 32.3 % (18.3-44.2); Mean Corpuscular HGB Conc 32.1 g/dl (32-36); Mean Corpuscular Hemoglobin 27.6 pg (26-34); Mean Corpuscular Volume 86.1 fl (80-100); Mean Platelet Volume 12.3 fl (7.4-10.4); Monocytes Absolute Auto 0.8 K/mm3 (0.1-0.6); Monocytes Percent Auto 12.3 % (2.6-8.5); Neutrophils Absolute Auto 3.3 K/mm3 (1.3-6.7); Neutrophils Percent Auto 53.3 % (45.5-73.1); Platelet Count Result 197 k/mm3 (150-375); Red Blood Count 5.18 M/mm3 (4.6-6.20); Red Cell Distribution Width 13.5 % (11.5-14.5); White Blood Count 6.2 K/mm3 (4.5-10.0)
[2023-12-02 07:44] LABS: Alanine Aminotransferase 80 U/L (6-50); Albumin Level 3.8 g/dL (3.5-5.1); Alkaline Phosphatase 80 U/L (38-126); Anion Gap 4 mmol/L (8-16); Aspartate Amino Transferase 64 U/L (17-59); Bilirubin,Total 0.6 mg/dL (0.2-1.3); Blood Urea Nitrogen 19 mg/dL (9-20); CRP < 0.5 mg/dL (<1.0); Calcium 9.8 mg/dL (8.4-10.2); Carbon Dioxide 28 mmol/L (22-30); Chloride 107 mmol/L (98-107); Estimated CRCL calculation 85 ml/min; Estimated Glomerular Filt Rate > 60; Glucose 90 mg/dL (65-110); Potassium 4.2 mmol/L (3.4-5.0); Sodium 139 mmol/L (137-145)
[2023-12-02] MEDS: ATORVASTATIN 20 MG TABLET PO (09:15)
[2023-12-02] MEDS: LOSARTAN POTASSIUM 100 MG TABLET PO (09:15)
[2023-12-02] MEDS: ENOXAPARIN 40 MG/0.4 ML SYRINGE SUB-Q (09:15)
--- NOTE | 2023-12-02 11:51 | PM.DS ---
DS: Admitting Diagnosis Discharge Date 12/02/2023 Admitting Diagnosis Paraplegia DS: Discharge Diagnosis Discharge Diagnosis (1) Paresthesias: Code(s): R20.2 - Paresthesia of skin Status: Acute (2) Muscle weakness: Code(s): M62.81 - Muscle weakness (generalized) Status: Acute (3) Urinary retention: Code(s): R33.9 - Retention of urine, unspecified Status: Resolved (4) Hypertension: Code(s): I10 - Essential (primary) hypertension Status: Chronic (5) Hyperlipidemia: Code(s): E78.5 - Hyperlipidemia, unspecified Status: Acute (6) MARCIANO (acute kidney injury): Code(s): N17.9 - Acute kidney failure, unspecified Status: Acute DS: Summary Hospital Course Hospital Course: Patient presented with weakness and numbness in his hand and feet for stool weeks. Neurology consulted. Lumbar puncture obtained. CSF studies showed normal cell count and normal protein level. 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 CK with mild elevation. Could be from deconditioning is more suggestive of CIDP but has not had symptoms for greater than 8 weeks yet. MRI brain/brainstem cervical spine lumbar spine and thoracic spine on revealing. LDH and TSH were within normal limits. Head CT negative. Cervical spine CT showing mild cervical spondylosis. HIV panel negative. Lipid panel elevated. Hemoglobin A1c 5.0. S now virus negative Lyme disease negative. PT OT To evaluate and treat. Immunoglobulin levels was within normal limit. Patient finished IVIG 0.4 grams/kilos for 5 days. Good response to IVIG. Still has numbness in his hands. But significantly improved. Speech hand former hand arm strength and leg strength has improved significantly and approaching normal. Arms and legs meaningfully over next week or so now parts physical therapy. Muscle weakness: Smiled elevated aldolase and CPK CPK down trending repeat aldolase level normal Urinary retention: Unable to you void bladder scan 275 mL of urine. Straight cath x1. Continue to monitor Hypertension chronic on losartan Hyperlipidemia: Lipid panel 14 LDL of 132 started on Lipitor 20 mg daily MARCIANO: Improving with IV fluid hydration DC plans to rehabilitation center Time Spent with Patient Time attestation: Total time spent providing and/or coordinating discharge services: 35 minutes Exam Narrative: General: In no acute distress, well nourished Head: atraumatic, no encephalopathy Eyes: EOMI, PERRLA, sclera clear, denies vision changes ENT: moist mucous membranes Neck: supple, no JVD, no adenopathy, trachea midline Cardiac:RRR. No murmur, gallops or friction rubs, peripheral pulses intact. Respiratory: Lungs clear to auscultation Gastrointestinal: soft, non-distended, non-tender, normoactive bowel sounds. Extremities: moves all extremities well, no edema, good ROM, strength 4/5 Skin: clean, dry, intact. No wounds or lesions. Neuro: Alert and oriented x4, cranial nerves intact, no neuro deficits. Hand and leg strength slowly improving, still complaining of numbness in hands Psych: normal mood, normal affect, interactive DS: Data Data Completed and Pending Completed studies during hospitalization: Pending at discharge 11/23/23 13:58 Cytology [PTH] Routine Exam Type: ? ? CA echo doppler color flow Study Info Indications ?? ? - htn paresthsis Complete two-dimensional, color flow and Doppler transthoracic echocardiogram is performed. Account #: ? ? [id number] Summary ? 1. Complete two-dimensional, color flow and Doppler transthoracic echocardiogram is performed. ? 2. Left ventricular chamber dimension is normal. ? 3. Left ventricular systolic function is normal, estimated at 65-70%. ? 4. There is moderate concentric increased left ventricular wall thickness. ? 5. The left ventricular diastolic function is grade I diastolic dysfunction. ? 6. E/e' 10 is mildly elevated. ? 7. There is trace
[2023-12-02 14:00] VITALS: BP 123/93; PULSE 89; RESP 12; TEMP 36.2; O2SAT 100
[2023-12-02 19:19] LABS: Aldolase 6.5 U/L (<=8.1)
== END 2023-12-02 18:10 | DRG 95 ==
LOC: ANHED 11:39 → ANH2MED 14:07 → ANHIMU 11-24 15:57 → ANH3MEDSUR 12-02 11:51 → ANHIMU 12-05 09:00
PROVIDERS: Family Medicine; Nurse Practitioner; Nurse Practitioner Acute Care; Physician Assistant; Student in an Organized Health Care Education/Training Program; Admitting Provider Student in an Organized Health Care Education/Training Program; Emergency Provider Emergency Medicine; PCP Physician Assistant; Visit Provider Internal Medicine
DX: G61.0 Guillain-Barre syndrome (principal); N17.9 Acute kidney failure, unspecified; I10 Essential (primary) hypertension; M62.81 Muscle weakness (generalized); R33.9 Retention of urine, unspecified; R29.6 Repeated falls; M47.812 Spondylosis without myelopathy or radiculopathy, cervical region; E78.5 Hyperlipidemia, unspecified
CPT/HCPCS: 36415; 62328; 70450; 70553; 72125; 72156; 72157; 72158; 80053; 80061; 82040; 82042; 82085; 82550; 82784; 82945; 82948; 83036; 83605; 83615; 83735; 83873; 83916; 84100; 84157; 84443; 85025; 85610; 85652; 85730; 86140; 86403; 86592; 86617; 86703; 86787; 86788; 87015; 87070; 87102; 87116; 87205; 87206; 87497; 87529; 87798; 88108; 89051; 93306; 94640; 97110; 97112; 97162; 97166; 97530; 97535; 99285; A9270; A9577; G0378; G0432; J1459; J1650; J7030

== ENCOUNTER 2024-02-06 15:55 | Inpatient (IN) | payer BC, SELFPAY ==
[2024-02-06] VITALS (7 sets, daily range): BP systolic 124–156; BP diastolic 88–93; PULSE 68–92; RESP 17–99; TEMP 36.2–36.7; O2SAT 96–100; BMI 32.6
--- NOTE | 2024-02-06 16:18 | ED.GENADULT ---
HPI - General Adult General Chief complaint: Unspecified Stated complaint: relapse Guillian Gardiner Time Seen by Provider: 02/06/24 16:17 History of Present Illness HPI narrative: Patient is a 39 year old male with HTN, CIDP, Guillian-Gardiner here with concerns for relapse of CIDP/Guillian- Gardiner. Patient notes that his symptoms began again over the last week of December. He saw Dr. Morro Ohara on 01/18/2024, he noted some mild recurrence of symptoms and recommended IVIG and they were working on setting this up outpatient. Patient notes progressive symptoms since that time and continues to await a phone call regarding treatment with IVIG. He states that he has had progressive worsening symptoms. He describes these as hand weakness and wrist weakness. He does not have any issues with raising his arms above his head which he did have in the past. He describes a pins and needle sensation throughout his bilateral hands. He additionally notes difficulty ambulating and the weakness in his the needle sensation in his feet. He states that he does have some difficulty standing from a seated position if the chair is low but he is able to get himself in and out of bed without difficulty. He denies any difficulty with breathing. No fever or chills. He denied any prodromal illness or vaccination to cause initial episode in November 2023. 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 Code status: Full code. Smoking status: Never smoker Alcohol intake: current Drinks per week: 1 Substance use: never Substance use type: does not use Do You Feel Safe in your Home?: Yes Lack of Transportation: No Lack of Food: Never True Current Housing: I Have Housing Concerned About Future Housing: No Difficulty Paying Gas/Electric Bills: No Difficulty Paying for Meds: No Currently Unemployed: No Education: Bachelor's Degree Difficulty w/ Childcare or Family Care: No Additional living arrangements comments: Lives in [place]. Additional occupation/education comments: Works for [employer]. Spiritual care concerns: No Exam Narrative: GENERAL: Well-appearing, well-nourished, and in no acute distress. HEAD: Normocephalic, atraumatic. EYES: PERRLA and EOMI. ENT: Nares clear. Mucous membranes moist. NECK: Supple. CHEST: Clear to auscultation. No respiratory distress. HEART: Regular rate and rhythm. Normal peripheral pulses. ABDOMEN: Soft, nontender, nondistended. EXTREMITIES: Normal range of motion. No edema. SKIN: Warm, dry, no rash. NEURO: He has some decreased strength in bilateral wrists, bilateral elbows. He is able to hold his arms over his head bilaterally. He additionally has some weakness in his ankle and knees. PSYCH: Normal mood and affect. Course Course Emergency Course: Chart review performed, patient here with concerns for relapse of his autoimmune disease. Complaining of muscle weakness to his hands and feet. He is reportedly been having difficulty wa
[2024-02-06 17:18] LABS: Basophils Percent Auto 0.3 % (0.2-1.2); Eosinophils Percent Auto 0.4 % (0-4.4); Hematocrit 47.3 % (42.0-52.0); Hemoglobin 15.7 g/dL (14.0-18.0); Immature Granulocyte Absolute 0.02 K/mm3 (0.00-0.031); Immature Granulocyte Percent A 0.2 % (0-0.5); Lymphocytes Absolute Auto 2.06 K/mm3 (0.9-3.2); Lymphocytes Percent Auto 23.1 % (18.3-44.2); Mean Corpuscular HGB Conc 33.2 g/dl (32-36); Mean Corpuscular Hemoglobin 28.2 pg (26-34); Mean Corpuscular Volume 84.9 fl (80-100); Mean Platelet Volume 12.2 fl (7.4-10.4); Monocytes Absolute Auto 0.7 K/mm3 (0.1-0.6); Neutrophils Absolute Auto 6.1 K/mm3 (1.3-6.7); Platelet Count Result 201 k/mm3 (150-375); Red Blood Count 5.57 M/mm3 (4.6-6.20); Red Cell Distribution Width 13.4 % (11.5-14.5); White Blood Count 8.9 K/mm3 (4.5-10.0)
[2024-02-06 17:31] LABS: Alanine Aminotransferase 44 U/L (6-50); Albumin Level 4.3 g/dL (3.5-5.1); Alkaline Phosphatase 78 U/L (38-126); Anion Gap 7 mmol/L (4-12); Aspartate Amino Transferase 31 U/L (17-59); Blood Urea Nitrogen 17 mg/dL (9-20); Calcium 9.4 mg/dL (8.4-10.2); Carbon Dioxide 24 mmol/L (22-30); Chloride 109 mmol/L (98-107); Estimated CRCL calculation 84 ml/min; Estimated Glomerular Filt Rate > 60; Glucose 98 mg/dL (65-110); Potassium 4.2 mmol/L (3.4-5.0); Sodium 140 mmol/L (137-145)
[2024-02-06 17:48] LABS: CRP < 0.5 mg/dL (<1.0)
--- NOTE | 2024-02-06 18:50 | PM.IMHP ---
H&P: HPI History of Present Illness Date/Time: 02/06/24 18:15 Chief Complaint: Weakness. Narrative: This is a pleasant 39-year-old male with hypertension, hyperlipidemia, and Guillain-Camden syndrome versus chronic inflammatory demyelinating polyneuropathy who presented to the emergency department for evaluation of weakness. The patient provides the following history. He is known to myself and the hospitalist service from an admission in November 2023 after presenting with similar symptoms. Extensive workup was pursued at that time with the working diagnoses as detailed above and he was treated with IVIG for 5 days with improvement. About a month after discharge he once again developed paresthesias and numbness in the hands and feet and overall weakness. He has once again started to use a cane and now walker due to the weakness to prevent falls. He saw Dr. Beltrán in the office on 01/18/2024 who recommended discontinuing atorvastatin and another treatment of IVIG. There have been difficulties getting that arranged as an outpatient and he continues to decline and thus and he is being admitted in this setting for treatment. He denies vision changes, difficulty speaking and swallowing, shortness of breath, and falls. Review of Systems Review of Systems: 12 systems were reviewed and are negative except for as per HPI. 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 Code status: Full code. Smoking status: Never smoker Alcohol intake: current Drinks per week: 1 Substance use: never Substance use type: does not use Do You Feel Safe in your Home?: Yes Lack of Transportation: No Lack of Food: Never True Current Housing: I Have Housing Concerned About Future Housing: No Difficulty Paying Gas/Electric Bills: No Difficulty Paying for Meds: No Currently Unemployed: No Education: Bachelor's Degree Difficulty w/ Childcare or Family Care: No Additional living arrangements comments: Lives in [place]. Additional occupation/education comments: Works for [employer]. Spiritual care concerns: No Meds Home Medications and Allergies Home Medications Medication Instructions Recorded Confirmed Type losartan 100 mg tablet 100 mg PO QAM 11/21/23 02/06/24 History Allergies Allergy/AdvReac Type Severity Reaction Status Date / Time No Known Allergies Allergy Verified 02/06/24 16:04 Vital Signs Vital Signs - 24 hr 02/06/24 16:00 02/06/24 17:02 02/06/24 18:01 Temperature 98.0 F Pulse Rate 92 78 Respiratory Rate 18 99 H Blood Pressure 128/90 124/90 130/93 H Pulse Oximetry 100 99 100 Oxygen Delivery Room Air Exam Narrative: General: Nontoxic-appearing male in the semi-Lyn position in bed. Weight: 106.1 kg. BMI: 32.6. HEENT: PERRL, EOMI. Sclera anicteric. Oral mucosa moist. Neck: Supple. Respiratory: Lungs are clear to auscultation bilaterally. Cardiovascular: Regular rate and rhythm with S1-S2. Gastrointestinal: Abdomen is soft, nontender, and nondistended with positive bowel sounds. Skin: Warm and dry. No rash or lesions on limited exam. Extremities: No cyanosis, clubbing, or edema. Radial and pedal pulses intact. Neurological: Alert. Cranial nerves 2-12 are grossly intact. Speech is clear. No facial asymmetry. Normal [id number] and rapid alternating movements. No pr
--- NOTE | 2024-02-06 19:36 | ADMGEN ---
This patient, Anton Lozano, was admitted to Medical Room 342-01. Patient/family oriented to hospital policies and general routines including ID bracelet, bed and alarms, visiting hours, pain management, procedures, bathroom and other care routines, personal items, smoking policy, room service/diet, and visiting hours. Information on how to activate the Rapid Response Team has been discussed. Patient/Family are encouraged to report perceived risks to care and to ask questions if they do not understand what they are told or what they should do.
--- NOTE | 2024-02-07 02:25 | PC.NURSE ---
Spoke with pharmacy about titrating up the IV IG. If blood pressure is stable, can increase rate by 32.7 mL/hr every 30 mins post blood pressure check, until max rate is achieved.
[2024-02-07 05:38] LABS: Hematocrit 44.8 % (42.0-52.0); Hemoglobin 14.3 g/dL (14.0-18.0); Mean Corpuscular HGB Conc 31.9 g/dl (32-36); Mean Corpuscular Hemoglobin 27.8 pg (26-34); Mean Corpuscular Volume 87.2 fl (80-100); Mean Platelet Volume 11.9 fl (7.4-10.4); Platelet Count Result 156 k/mm3 (150-375); Red Blood Count 5.14 M/mm3 (4.6-6.20); Red Cell Distribution Width 13.5 % (11.5-14.5); White Blood Count 7.2 K/mm3 (4.5-10.0)
[2024-02-07 05:52] LABS: Anion Gap 2 mmol/L (4-12); Blood Urea Nitrogen 16 mg/dL (9-20); Calcium 9.1 mg/dL (8.4-10.2); Carbon Dioxide 29 mmol/L (22-30); Chloride 107 mmol/L (98-107); Estimated CRCL calculation 77 ml/min; Estimated Glomerular Filt Rate > 60; Glucose 84 mg/dL (65-110); Magnesium 1.9 mg/dL (1.6-2.3); Potassium 4.1 mmol/L (3.4-5.0); Sodium 138 mmol/L (137-145)
[2024-02-07 06:00] VITALS: BP 148/92; PULSE 60; RESP 20; TEMP 35.9; O2SAT 100
[2024-02-07] MEDS: ENOXAPARIN 40 MG/0.4 ML SYRINGE SUB-Q (08:38)
--- NOTE | 2024-02-07 11:00 | WPDNEURCNPN ---
Consult date: 02/07/24 HPI: Anton Lozano is a 39 year old male , Admitted to the hospital through the emergency room with ongoing history of 1. Hypertension 2. Chronic inflammatory demyelinating polyneuropathy that is CIDP 3. for the concerns of the relapse of the symptoms starting in last week of December. Patient has been seen by Dr. boyce on January 18, 2024 when he was noted to have mild recurrence of symptoms and he suggested him to receive the IVIG therapy, physician was trying to establish that therapy as an outpatient but because of progressively increasing symptomatology patient came to the ER, he complains of hand weakness and wrist weakness, has no issues in raising his upper extremities over the head,he complains of pins and needle sensation throughout both hands,he complained of difficulties in ambulating and weakness and numbness in his feet as well ,he was noted to have difficulties in standing from the seating position in the chair in the emergency room ,he gave no history of difficulties in breathing. He is taking losartan 100mg daily for hypertension. He is not allergic to any medication. In the past he carries the diagnosis of 1. Hypertension 2. Hyperlipidemia 3. Chronic inflammatory demyelinating polyneuropathy with history of Guillain Durand syndrome. He has never smoked. And currently drinks alcohol only 1 drink per week. Initial exam in the emergency room documented decreased strength in both wrist, both elbows though he was able to hold his arms over his head bilaterally and was also noted to have weakness in his ankles and knees, his vital signs were normal, CBC was normal, BMP was normal, routine lab was normal including the C reactive protein and GFR of more than 60. In Dr. Bajwa office he was able to walk without support though was noted to have weakness and the DTR were documented as 0 noted to have weakness in both hands and feet, was unable to get up from the chair without support with some weakness of the proximal muscles as well. Patient has received 1 course of treatment with IVIG considering the neurological deficit he needed a 2nd course of IVIG for the next 5 days, his atorvastatin was stopped, he will have the EMG nerve conduction study to differentiate the demyelinating versus axonal features, to consider the long-term treatment homocystine, B1, hepatic panel, but panel, CK, B12, folate, methylmalonic acid, TSH, vitamin B6, and vitamin-D were ordered and patient was to have IVIG treatment as an outpatient follow-up in 6 to 8 weeks those lab studies is still not available, [facility] Past Medical History Medical History (Updated 02/06/24 @ 21:56 by Sandra Suárez MD) 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 Code status: Full code. Smoking status: Never smoker Alcohol intake: current Drinks per week: 1 Substance use: never Substance use type: does not use Do You Feel Safe in your Home?: Yes Lack of Transportation: No Lack of Food: Never True Current Housing: I Have Housing Concerned About Future Housing: No Difficulty Paying Gas/Electric Bills: No Difficulty Paying for Meds: No Currently Unemployed: No Education: Bachelor's Degree Difficulty w/ Childcare or Family Care: No Additional living arrangements comments: Lives in [place]. Additional occupation/education comments: Works for [employer]. Spiritual care concerns: No Meds Home Medications and Allergies Home Medications M
--- NOTE | 2024-02-07 11:48 | WPDNEURCNPN ---
Assessment and Plan Assessment and plan (1) Chronic inflammatory demyelinating polyneuropathy: Code(s): G61.81 - Chronic inflammatory demyelinating polyneuritis Status: Acute Plan 1. CIDP 2.Guillain-barre syndrome. 3. For improvement with the 1 course of IVIG will need a 2nd course of the treatment over the next 5 days home other studies as planned particularly EMG and nerve conduction study to differentiate between the demyelinating versus axonal neuropathy for the clarification of the diagnosis. At this particular time is getting 2nd course of IVIG. All the blood studies which were ordered as an outpatient at this stage results are not available. Consult date: 02/07/24 HPI: Anton Lozano is a 39 year old male Admitted to the hospital through the emergency room with ongoing history of 1. Hypertension 2. Chronic inflammatory demyelinating polyneuropathy that is CIDP 3. For the concerns of the relapse of the symptoms starting over the last week of December, Patient has been seen by on January 18, 2024 when he was noted to have mild recurrence of the symptoms and was suggested to receive IVIG therapy, physician was trying to start -the therapy as an outpatient but because of the progressive increase in symptomatology patient came to the emergency room. He complained of hand weakness and wrist weakness with no issues in raising his upper extremities over the head but complained of the pins and needle sensation throughout both hands. He complained of difficulties in ambulating and weakness and numbness in his feet as well, he was noted to have difficulties standing from the sitting position in the chair in the emergency room. He gave no history of difficulties in breathing ,he has been taking losartan 100mg daily for the hypertension ,he is not allergic to any medication and in the past he carried the diagnosis of hypertension, hyperlipidemia, chronic inflammatory demyelinating polyneuropathy with Guillain-Rapelje syndrome, he never smoked and currently drinks alcohol only 1 drink per week. On initial exam in the emergency room he was found to have decreased strength in both wrists both elbows though he was able to hold his arms over his head bilaterally and was also noted to have weakness in his ankles and knees, vital signs were normal CBC was normal BMP was normal ,routine lab was normal including C-reactive protein and GFR of more than 60, in the office he was able to walk without support though he was noted to have weakness and the DTRs were documented as 0 ,he was unable to get up from the chair without support, he was noted to have weakness of the proximal muscles. He has received 1 course of treatment with IVIG but considering the neurological deficit he will be starting 2nd course of IVIG for the next 5 days ,his atorvastatin has been stopped ,he will have EMG nerve conduction study in the coming days and the blood study as an outpatient have been ordered which included homocystine, B1, hepatic panel, CK, B12 folate level and methylmalonic acid TSH vitamin B6 and vitamin-D, he ended up being hospitalized through the ER and his treatment will be started during this hospitalization. [facility] Past Medical History Medical History Chronic inflammatory demyelinating polyneuropathy Guillain-Rapelje syndrome Hyperlipidemia Hypertension Surgical History Surgical History History of wisdom tooth extraction Family History Family History Father Diabetes mellitus Hypertension Mother Hypertension Social History Social History Social History: Surrogate medical decision maker: Ilda Lozano, mother. Code status: Full code. Smoking status: Never smoker Alcohol intake: current Drinks per week: 1 Substance
--- NOTE | 2024-02-07 13:40 | PM.IMPN ---
Progress Note: A&P Assessment and Plan (1) Chronic inflammatory demyelinating polyneuropathy: Code(s): G61.81 - Chronic inflammatory demyelinating polyneuritis Status: Acute Assessment and Plan: The patient presented to the emergency department for evaluation of increasing weakness over the past several weeks. Has been recently treated with IVIG for the symptoms in November of 2023 during his hospitalization. When patient was discharged his symptoms did improve with therapy and he was doing well in therapy when he noticed worsening of his symptoms again near the end of December. He was seen by Neurology as an outpatient and Dr. Morro Ohara believed he was having a relapse. Neurology consulted. Dr. Beltrán recommends admission for IVIG treatment and we will defer dose and length of treatment to him. 1 time dose of IVIG given on 02/05 Initiate fall precautions. PT and OT ordered. Care coordination consulted for outpatient infusions (2) Hypertension: Code(s): I10 - Essential (primary) hypertension Status: Chronic Assessment and Plan: Blood pressure stable. Continue home losartan at 100 mg daily. Subjective Date/time seen: 02/07/24 13:40 Interval history: Patient stated that he noticed worsening of his weakness at the end of December. He had been improving outpatient rehab and stated that he was improving nicely with his strength. All of sudden he started to slide backwards and he saw Dr. Beltrán as an outpatient and was told that he was having a relapse. They had tried to get infusion set up for patient as an outpatient better having trouble with insurance approval at infusion sites. Discussed this with care coordination and they are looking into infusion centers. Exam Narrative: GENERAL: Comfortable, no acute distress HENMT: moist mucous membranes EYES: EOM intact b/l NECK: no lymphadenopathy RESPIRATORY: clear to auscultation, no increased respiratory effort CARDIO: Regular rate and rhythm GI: soft, nontender, bowel sounds present SKIN/EXTREMITIES: no rashes, no edema, no redness or tenderness NEURO: bilateral weakness in patient's hands and feet, 0 deep tendon reflexes Objective Data Vital Signs Vital Signs: Vital Signs - 24 hr 02/06/24 16:00 02/06/24 17:02 02/06/24 18:01 Temperature 98.0 F Pulse Rate 92 78 Respiratory Rate 18 99 H Blood Pressure 128/90 124/90 130/93 H Pulse Oximetry 100 99 100 Oxygen Delivery Room Air 02/06/24 19:01 02/06/24 19:52 02/06/24 20:39 Temperature 97.2 F L Pulse Rate 78 68 Respiratory Rate 17 20 Blood Pressure 131/88 156/90 H Pulse Oximetry 98 96 98 Oxygen Delivery Room Air 02/06/24 20:00 02/07/24 06:00 02/07/24 08:38 Temperature 96.7 F L Pulse Rate 68 60 Respiratory Rate 20 20 Blood Pressure 148/92 H Pulse Oximetry 98 100 Oxygen Delivery Room Air Room Air Intake/Output Intake/Output: Intake & Output 02/04/24 02/05/24 02/06/24 02/07/24 23:59 23:59 23:59 23:59 Intake Total 1884.5 Output Total 400 800 Balance -400 1084.5 Meds/Results Medications: Active Medications Generic Name Dose Route Start Last Admin Trade Name Freq PRN Reason Stop Dose Admin Acetaminophen 650 mg 02/06/24 21:51 Acetaminophen 325 Mg Tablet PO Q6H PRN Mild Pain (1-3) or Fever Enoxaparin Sodium 40 mg 02/07/24 09:00 02/07/24 08:38 Enoxaparin 40 Mg/0.4 Ml Syringe SUB-Q 40 mg DAILY DARIAN Administration Losartan Potassium 100 mg 02/07/24 13:00 Losartan Potassium 100 Mg Tablet PO QAM [facility] Labs Labs: Laboratory Results - last 24 hr 02/06/24 02/07/24 17:12 05:26 WBC 8.9 7.2 RBC 5.57 5.14 Hgb 15.7 14.3 Hct 47.3 44.8 MCV 84.9 87.2 MCH 28.2 27.8 MCHC 33.2 31.9 L RDW 13.4 13.5 Plt Count 201 156 MPV 12.2 H 11.9 H Immature Gran % (Auto) 0.2 Neut % (Auto) 68.0 Lymph % (Auto) 23.1 [place] % (Auto) 8.0 Eos % (Auto) 0.4 B
[2024-02-07 13:44] VITALS: BP 143/88; PULSE 65; RESP 16; TEMP 36.2; O2SAT 100
[2024-02-07] MEDS: LOSARTAN POTASSIUM 100 MG TABLET PO (13:59)
[2024-02-07 22:00] VITALS: BP 139/94; PULSE 87; RESP 20; TEMP 36.1; O2SAT 100
[2024-02-08 05:41] LABS: Hematocrit 44.4 % (42.0-52.0); Hemoglobin 14.2 g/dL (14.0-18.0); Mean Corpuscular Hemoglobin 27.6 pg (26-34); Mean Corpuscular Volume 86.2 fl (80-100); Mean Platelet Volume 12.5 fl (7.4-10.4); Platelet Count Result 151 k/mm3 (150-375); Red Blood Count 5.15 M/mm3 (4.6-6.20); Red Cell Distribution Width 13.2 % (11.5-14.5); White Blood Count 5.8 K/mm3 (4.5-10.0)
[2024-02-08 05:52] LABS: Anion Gap 3 mmol/L (4-12); Blood Urea Nitrogen 16 mg/dL (9-20); Calcium 9.2 mg/dL (8.4-10.2); Carbon Dioxide 28 mmol/L (22-30); Chloride 107 mmol/L (98-107); Estimated CRCL calculation 90 ml/min; Estimated Glomerular Filt Rate > 60; Glucose 88 mg/dL (65-110); Magnesium 1.9 mg/dL (1.6-2.3); Potassium 4.2 mmol/L (3.4-5.0); Sodium 138 mmol/L (137-145)
[2024-02-08 06:00] VITALS: BP 131/90; PULSE 67; RESP 20; TEMP 35.7; O2SAT 100
[2024-02-08] MEDS: LOSARTAN POTASSIUM 100 MG TABLET PO (08:03)
[2024-02-08] MEDS: ENOXAPARIN 40 MG/0.4 ML SYRINGE SUB-Q (08:03)
--- NOTE | 2024-02-08 08:59 | PM.IMPN ---
Progress Note: A&P Assessment and Plan (1) Chronic inflammatory demyelinating polyneuropathy: Code(s): G61.81 - Chronic inflammatory demyelinating polyneuritis Status: Acute Assessment and Plan: Patient presented for increased weakness of past several weeks. 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 Symptoms improved and patient was discharged home with plan to continue treatment outpatient however issues with insurances caused patient to not receive the therapy. He was doing well when he noticed worsening of his symptoms again near the end of December. He was seen by Neurology as an outpatient and Dr. Beltrán believed he was having a relapse. Dr. Beltrán referred patient to the ED for IVIG therapy for next [address] Beltrán recommends admission for IVIG treatment. He also plans for an EMG nerve study of upper and lower limbs outpatient. Neurology consulted. Per Dr. August patient will remain inpatient for IVIG x 5 days (started on 02/07) Initiate fall precautions. PT and OT ordered. Care coordination consulted for outpatient infusions (2) Hypertension: Code(s): I10 - Essential (primary) hypertension Status: Chronic Assessment and Plan: Chronic. Blood pressure stable on home medications. Continue home losartan at 100 mg daily. Monitor (3) Hyperlipidemia: Code(s): E78.5 - Hyperlipidemia, unspecified Status: Acute Assessment and Plan: Previously on atorvastatin. Discontinued by Dr. Beltrán on 01/18/24. 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 Patient is pleasant sitting up on the side of the bed. He continues to endorse tingling to the hands and feet with noticeable weakness to his wrists. He states that prior to his relapse he was working well with PT and doing strength exercises at home. He then noticed that he was having increased difficulty and felt more off balance requiring him to use his cane again. He was evaluated by Dr. Beltrán who sent him to the ED for IVIG treatment. Patient was seen by Dr. August today who plans to start patient on IVIG x5 days in patient. Patient denies chest pain, shortness of breath, nausea/vomiting and changes in bowel/bladder. Review of Systems Review of Systems: All systems reviewed & are unremarkable except as noted in HPI and below Exam Narrative: AF HR 86 RR 16 SpO2 100 BP 133/83 General: male in no acute respiratory distress who is nontoxic appearing, sitting on the side of his bed HEENT: Normocephalic. Atraumatic. Pupils equal round reactive to light. Extraocular movement intact. Sclera clear and anicteric. No facial asymmetry. Chest: Lungs are clear to auscultation bilaterally. No wheezes or crackles. CV: Heart was regular rate and rhythm. S1/S2. No murmurs, gallops, or rubs. Abd: Abdomen was soft. Nontender. Nondistended. Positive bowel sounds. No organomegaly or masses. Ext: No clubbing, cyanosis, or edema. 2+ DP pulses bilaterally. Neuro: Patient is alert and oriented x4. Strength is 4/5 in both upper and 5/5 lower extremities. Decreased diamond powder mixer strength. Cranial nerves 2-12 are intact. Speech is clear. Psych: Normal mood and affect. Patient is pleasant and cooperative. Skin: Warm and dry. No rashes noted. Objective Data Vital Signs Vital Signs: Vital Signs - 24 hr 02/07/24 13:44 02/07/24 14:58 02/07/24 20:00 Temperature 97.2 F L Pulse Rate 65 Respiratory Rate 16 Blood Pressure 143/88 H Pulse Oximetry 100 Oxygen Delivery Room Air Room Air 02/07/24 22:00 02/08/24 06:00 Temperature 97.0 F L 96.3 F L Pulse Rate 87 67 Respiratory Rate 20 20 Blood P
--- NOTE | 2024-02-08 11:24 | WPDNEUROPN ---
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 Objective Data Vital Signs Vital Signs: Vital Signs - 24 hr 02/07/24 13:44 02/07/24 14:58 02/07/24 20:00 Temperature 36.2 C L Pulse Rate 65 Respiratory Rate 16 Blood Pressure 143/88 H Pulse Oximetry 100 Oxygen Delivery Room Air Room Air 02/07/24 22:00 02/08/24 06:00 02/08/24 08:07 Temperature 36.1 C L 35.7 C L Pulse Rate 87 67 Respiratory Rate 20 20 Blood Pressure 139/94 H 131/90 Pulse Oximetry 100 100 Oxygen Delivery Room Air Intake/Output Intake/Output: Intake & Output 02/05/24 02/06/24 02/07/24 02/08/24 23:59 23:59 23:59 23:59 Intake Total 3214.5 960 Output Total 400 800 600 Balance -400 2414.5 360 Meds/Results Medications: Active Medications Generic Name Dose Route Start Last Admin Trade Name Freq PRN Reason Stop Dose Admin Acetaminophen 650 mg 02/06/24 21:51 Acetaminophen 325 Mg Tablet PO Q6H PRN Mild Pain (1-3) or Fever Enoxaparin Sodium 40 mg 02/07/24 09:00 02/08/24 08:03 Enoxaparin 40 Mg/0.4 Ml Syringe SUB-Q 40 mg DAILY DARIAN Administration Immune Globulin 40 gm/ Immune 430 mls @ 31.8 mls/hr 02/08/24 11:00 02/08/24 11:13 Globulin 3 gm/ N/A IVPB 02/13/24 00:32 31.8 mls/hr Q24H DARIAN Administration Protocol Losartan Potassium 100 mg 02/07/24 13:00 02/08/24 08:03 Losartan Potassium 100 Mg Tablet PO 100 mg QAM DARIAN Administration Labs Labs: Laboratory Results - last 24 hr 02/08/24 05:20 WBC 5.8 RBC 5.15 Hgb 14.2 Hct 44.4 MCV 86.2 MCH 27.6 MCHC 32.0 RDW 13.2 Plt Count 151 MPV 12.5 H Sodium 138 Potassium 4.2 Chloride 107 Carbon Dioxide 28 Anion Gap 3 L BUN 16 Creatinine 1.20 Estim Creat Clear Calc 90 Estimated GFR > 60 Glucose 88 Calcium 9.2 Magnesium 1.9
[2024-02-08 14:00] VITALS: BP 133/83; PULSE 86; RESP 16; TEMP 36.6; O2SAT 100
[2024-02-08 18:31] VITALS: BP 125/79; PULSE 85; RESP 18; TEMP 36.1; O2SAT 100
[2024-02-08 18:59] VITALS: BP 120/83; PULSE 83; RESP 18; TEMP 36.3; O2SAT 99
[2024-02-08 22:20] VITALS: BP 142/87; PULSE 72; RESP 20; TEMP 36.2; O2SAT 100
[2024-02-09 06:00] VITALS: BP 121/81; PULSE 68; RESP 20; TEMP 36.2; O2SAT 100
--- NOTE | 2024-02-09 07:19 | PM.IMPN ---
Progress Note: A&P Assessment and Plan (1) Chronic inflammatory demyelinating polyneuropathy: Code(s): G61.81 - Chronic inflammatory demyelinating polyneuritis Status: Acute Assessment and Plan: Patient presented for increased weakness of past several weeks. 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 Symptoms improved and patient was discharged home with plan to continue treatment outpatient however issues with insurances caused patient to not receive the therapy. He was doing well when he noticed worsening of his symptoms again near the end of December. He was seen by Neurology as an outpatient and Dr. Beltrán believed he was having a relapse. Dr. Beltrán referred patient to the ED for IVIG therapy for next [address] Beltrán recommends admission for IVIG treatment. He also plans for an EMG nerve study of upper and lower limbs outpatient. Neurology consulted. Per Dr. August patient will remain inpatient for IVIG x 5 days (started on 02/07) Initiate fall precautions. PT and OT ordered. Care coordination consulted for outpatient infusions (2) Hypertension: Code(s): I10 - Essential (primary) hypertension Status: Chronic Assessment and Plan: Chronic. Blood pressure stable on home medications. Continue home losartan at 100 mg daily. Monitor (3) Hyperlipidemia: Code(s): E78.5 - Hyperlipidemia, unspecified Status: Acute Assessment and Plan: Previously on atorvastatin. Discontinued by Dr. Beltrán on 01/18/24. Continue to monitor Time Spent With Patient Time with patient: 25 - 35 minutes Subjective Date/time seen: 02/09/24 07:19 Interval history: 39-year-old male with hypertension, hyperlipidemia, and Guillain-[place] syndrome versus chronic inflammatory demyelinating polyneuropathy who presented to the emergency department for evaluation of weakness.? Patient is pleasant sitting up in his chair eating lunch. He continues to endorse weakness,but states that his sensation has improved. He notes that he has less tingling especially to his feet. Patient notes that he is feeling depressed about his current diagnosis and the unknown. Discussed with patient that if he wishes to talk to someone more about these feelings we have the human resource intern service available. He states that his brother is his confidant and he does not need any services at this time. He denies chest pain, nausea/vomiting, shortness of breath, and changes in bowel/bladder. Review of Systems Review of Systems: All systems reviewed & are unremarkable except as noted in HPI and below Exam Narrative: AF HR 72 RR 20 SpO2 100 BP 132/86 General: male in no acute respiratory distress who is nontoxic appearing, sitting up in chair HEENT: Normocephalic. Atraumatic. Pupils equal round reactive to light. Extraocular movement intact. Sclera clear and anicteric. No facial asymmetry. Chest: Lungs are clear to auscultation bilaterally. No wheezes or crackles. CV: Heart was regular rate and rhythm. S1/S2. No murmurs, gallops, or rubs. Abd: Abdomen was soft. Nontender. Nondistended. Positive bowel sounds. No organomegaly or masses. Ext: No clubbing, cyanosis, or edema. 2+ DP pulses bilaterally. Neuro: Patient is alert and oriented x4. Strength is 4/5 in both upper and 5/5 lower extremities. Improved hand folder strength, although still diminished. Weak dorsal/plantar flexion. Cranial nerves 2-12 are intact. Speech is clear. Psych: Depressed mood and affect. Patient is pleasant and cooperative. Skin: Warm and dry. No rashes noted. Objective Data Vital Signs Vital Signs: Vital Signs - 24 hr 02/08/24 08:07 02/08/24 14:00 02/08/24 18:31 Temperature 97.9 F 97.0 F L Pulse Rate 86 85 Respiratory Rate 16 18 Blood Pressure 133/83 125/79 Pulse Oximetry 100 100 Oxygen Delivery Room Air 02/08/24 18:59 02/08/24 19:04 Temperature 97.4 F L Pulse Rate 83 Respiratory Rate 18 [place]
[2024-02-09 07:56] LABS: Basophils Percent Auto 0.6 % (0.2-1.2); Eosinophils Percent Auto 0.6 % (0-4.4); Hematocrit 45.8 % (42.0-52.0); Hemoglobin 14.8 g/dL (14.0-18.0); Immature Granulocyte Absolute 0.02 K/mm3 (0.00-0.031); Immature Granulocyte Percent A 0.3 % (0-0.5); Lymphocytes Absolute Auto 1.88 K/mm3 (0.9-3.2); Lymphocytes Percent Auto 29.7 % (18.3-44.2); Mean Corpuscular HGB Conc 32.3 g/dl (32-36); Mean Corpuscular Hemoglobin 27.8 pg (26-34); Mean Corpuscular Volume 85.9 fl (80-100); Mean Platelet Volume 12.3 fl (7.4-10.4); Monocytes Absolute Auto 0.6 K/mm3 (0.1-0.6); Monocytes Percent Auto 9.8 % (2.6-8.5); Neutrophils Absolute Auto 3.7 K/mm3 (1.3-6.7); Platelet Count Result 168 k/mm3 (150-375); Red Blood Count 5.33 M/mm3 (4.6-6.20); Red Cell Distribution Width 13.4 % (11.5-14.5); White Blood Count 6.3 K/mm3 (4.5-10.0)
[2024-02-09] MEDS: LOSARTAN POTASSIUM 100 MG TABLET PO (08:18)
[2024-02-09] MEDS: ENOXAPARIN 40 MG/0.4 ML SYRINGE SUB-Q (08:18)
[2024-02-09 08:44] LABS: Alanine Aminotransferase 40 U/L (6-50); Albumin Level 4.1 g/dL (3.5-5.1); Alkaline Phosphatase 72 U/L (38-126); Anion Gap 6 mmol/L (4-12); Aspartate Amino Transferase 33 U/L (17-59); Blood Urea Nitrogen 18 mg/dL (9-20); Calcium 9.1 mg/dL (8.4-10.2); Carbon Dioxide 24 mmol/L (22-30); Chloride 107 mmol/L (98-107); Estimated CRCL calculation 83 ml/min; Estimated Glomerular Filt Rate > 60; Glucose 85 mg/dL (65-110); Potassium 4.3 mmol/L (3.4-5.0); Sodium 137 mmol/L (137-145)
[2024-02-09 13:46] VITALS: BP 132/86; PULSE 81
[2024-02-09 14:00] VITALS: BP 126/90; PULSE 85; RESP 16; TEMP 36.4; O2SAT 97
--- NOTE | 2024-02-09 17:06 | WPDNEUROPN ---
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 The patient did benefit from IVIG at that time but still has significant difficulties due to muscle weakness. I noted that he there have been some weakness in the upper limb but he still has significant weakness in the lower limbs. I would suggest to continue with the IVIG for 5 days and I would like to see him for follow-up in 3 4 weeks after that in my office to decide about future course of treatment. Insurance company would like me to give him 1 g every 3 weeks but it would best to see how he responds to the treatment for now. Is scheduled for EMG nerve study of his lower limbs and possibly upper limbs on 10 18 also at Neurology Department. Subjective Date/time seen: 02/09/24 17:06 Interval history: The patient feels slightly better since he started on IVIG 2 days ago. Previous history and findings were reviewed. He denies any difficulty with vision or swallowing. He has weakness in his both upper and lower limbs but significant difficulty in walking. Is be using a cane to get around. No bladder or bowel disturbance. Review of Systems Review of Systems: All systems reviewed & are unremarkable except as noted in HPI and below Exam Narrative: Examination mental status memory and speech were within normal limits. Cranial nerves in your testing were intact. Pupils were equal reacting. Motor system weakness of both lower limbs distally power grade 4 5. Also normal strength noted in both upper limb examination today. Proximal muscles in the lower limbs also show fair strength. Deep tendon face had decreased at knees and ankles. No involuntary movements seen. Objective Data Vital Signs Vital Signs: Vital Signs - 24 hr 02/08/24 18:31 02/08/24 18:59 02/08/24 19:04 Temperature 36.1 C L 36.3 C L Pulse Rate 85 83 Respiratory Rate 18 18 Blood Pressure 125/79 120/83 Pulse Oximetry 100 99 Oxygen Delivery Room Air 02/09/24 06:00 02/08/24 22:20 02/09/24 08:20 Temperature 36.2 C L 36.2 C L Pulse Rate 68 72 Respiratory Rate 20 20 Blood Pressure 121/81 142/87 H Pulse Oximetry 100 100 Oxygen Delivery Room Air 02/09/24 13:46 02/09/24 14:00 Temperature 36.4 C Pulse Rate 81 85 Respiratory Rate 16 Blood Pressure 132/86 126/90 Pulse Oximetry 97 Oxygen Delivery Intake/Output Intake/Output: Intake & Output 02/06/24 02/07/24 02/08/24 02/09/24 23:59 23:59 23:59 23:59 Intake Total 3214.5 1940 2250 Output Total 841 612 9738 300 Balance -400 2414.5 640 1950 Meds/Results Medications: Active Medications Generic Name Dose Route Start Last Admin Trade Name Freq PRN Reason Stop Dose Admin Acetaminophen 650 mg 02/06/24 21:51 Acetaminophen 325 Mg Tablet PO Q6H PRN Mild Pain (1-3) or Fever Enoxaparin Sodium 40 mg 02/07/24 09:00 02/09/24 08:18 Enoxaparin 40 Mg/0.4 Ml Syringe SUB-Q 40 mg DAILY DARIAN Administration Immune Globulin 40 gm/ Immune 430 mls @ 31.8 mls/hr 02/09/24 11:00 02/09/24 11:40 Globulin 3 gm/ N/A IVPB 02/13/24 00:32 31.8 mls/hr Q24H DARIAN Administration Protocol Losartan Potassium 100 mg 02/07/24 13:00 02/09/24 08:18 Losartan Potassium 100 Mg Tablet PO 100 mg QAM DARIAN Administration Labs Labs: Laboratory Results - last 24 hr 02/09/24 07:42 WBC 6.3 RBC 5.33 Hgb 14.8 Hct 45.8 MCV 85.9 MCH 27.8 MCHC 32.3 RDW 13.4 Plt Count 168 MPV 12.3 H Immature Gran % (Auto) 0.3 Neut % (Auto) 59.0 Lymph % (Auto) 29.7 [place] % (Auto) 9.8 H Eos % (Auto) 0.6 Baso % (Auto) 0.6 Lymph # (Auto) 1
[2024-02-09 20:55] VITALS: BP 136/89; PULSE 62; RESP 20; TEMP 37; O2SAT 100
[2024-02-10 05:35] LABS: Basophils Percent Auto 0.5 % (0.2-1.2); Eosinophils Percent Auto 0.7 % (0-4.4); Hematocrit 43.5 % (42.0-52.0); Hemoglobin 13.9 g/dL (14.0-18.0); Immature Granulocyte Absolute 0.01 K/mm3 (0.00-0.031); Immature Granulocyte Percent A 0.2 % (0-0.5); Lymphocytes Absolute Auto 1.75 K/mm3 (0.9-3.2); Lymphocytes Percent Auto 30.6 % (18.3-44.2); Mean Corpuscular Hemoglobin 27.5 pg (26-34); Mean Platelet Volume 12.6 fl (7.4-10.4); Monocytes Absolute Auto 0.5 K/mm3 (0.1-0.6); Monocytes Percent Auto 8.9 % (2.6-8.5); Neutrophils Absolute Auto 3.4 K/mm3 (1.3-6.7); Neutrophils Percent Auto 59.1 % (45.5-73.1); Platelet Count Result 168 k/mm3 (150-375); Red Blood Count 5.06 M/mm3 (4.6-6.20); Red Cell Distribution Width 13.2 % (11.5-14.5); White Blood Count 5.7 K/mm3 (4.5-10.0)
[2024-02-10 05:52] LABS: Alanine Aminotransferase 42 U/L (6-50); Albumin Level 3.8 g/dL (3.5-5.1); Alkaline Phosphatase 62 U/L (38-126); Anion Gap 4 mmol/L (4-12); Aspartate Amino Transferase 34 U/L (17-59); Blood Urea Nitrogen 16 mg/dL (9-20); Calcium 9.1 mg/dL (8.4-10.2); Carbon Dioxide 26 mmol/L (22-30); Chloride 108 mmol/L (98-107); Estimated CRCL calculation 83 ml/min; Estimated Glomerular Filt Rate > 60; Glucose 91 mg/dL (65-110); Potassium 4.2 mmol/L (3.4-5.0); Sodium 138 mmol/L (137-145)
[2024-02-10 06:00] VITALS: BP 134/98; PULSE 82; RESP 20; TEMP 37.1; O2SAT 100
--- NOTE | 2024-02-10 07:28 | PM.IMPN ---
Progress Note: A&P Assessment and Plan (1) Chronic inflammatory demyelinating polyneuropathy: Code(s): G61.81 - Chronic inflammatory demyelinating polyneuritis Status: Acute Assessment and Plan: Patient presented for increased weakness of past several weeks. 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 Symptoms improved and patient was discharged home with plan to continue treatment outpatient however issues with insurances caused patient to not receive the therapy. He was doing well when he noticed worsening of his symptoms again near the end of December. He was seen by Neurology as an outpatient and Dr. Beltrán believed he was having a relapse. Dr. Beltrán referred patient to the ED for IVIG therapy for next [address] Beltrán recommends admission for IVIG treatment. He also plans for an EMG nerve study of upper and lower limbs outpatient. Neurology consulted. Per Dr. August patient will remain inpatient for IVIG x 5 days (started on 02/07) Initiate fall precautions. PT and OT ordered. Care coordination consulted for outpatient infusions (2) Hypertension: Code(s): I10 - Essential (primary) hypertension Status: Chronic Assessment and Plan: Chronic. Blood pressure stable on home medications. Continue home losartan at 100 mg daily. Monitor (3) Hyperlipidemia: Code(s): E78.5 - Hyperlipidemia, unspecified Status: Acute Assessment and Plan: Previously on atorvastatin. Discontinued by Dr. Beltrán on 01/18/24. Continue to monitor Subjective Date/time seen: 02/10/24 07:28 Interval history: 39-year-old male with hypertension, hyperlipidemia, and Guillain-[place] syndrome versus chronic inflammatory demyelinating polyneuropathy who presented to the emergency department for evaluation of weakness.? Patient is pleasant sitting up in his chair. He states his symptoms are pretty much the same as yesterday. He continues to endorse weakness in both hands and feet with tingling sensation to the feet. He has been ambulating around his room with his walker. He continues to have issues with insurance coverage for future infusions. Care coordination continues to follow. Patient notes that he has an appointment with Dr. Beltrán on Tuesday for his nerve conduction study. His inpatient infusions will be completed on Tuesday. Patient denies chest pain, shortness of breath, nausea/vomiting, and changes in bowel/bladder. Review of Systems Review of Systems: All systems reviewed & are unremarkable except as noted in HPI and below Exam Narrative: AF HR 71 RR 18 SpO2 100 BP 141/94 General: male in no acute respiratory distress who is nontoxic appearing, sitting up in chair HEENT: Normocephalic. Atraumatic. Pupils equal round reactive to light. Extraocular movement intact. Sclera clear and anicteric. No facial asymmetry. Chest: Lungs are clear to auscultation bilaterally. No wheezes or crackles. CV: Heart was regular rate and rhythm. S1/S2. No murmurs, gallops, or rubs. Abd: Abdomen was soft. Nontender. Nondistended. Positive bowel sounds. No organomegaly or masses. Ext: No clubbing, cyanosis, or edema. 2+ DP pulses bilaterally. Neuro: Patient is alert and oriented x4. Strength is 4/5 in both upper and 5/5 lower extremities. Improved psychiatric secretary strength, although still diminished. Weak dorsal/plantar flexion. Cranial nerves 2-12 are intact. Speech is clear. Psych: Depressed mood and affect. Patient is pleasant and cooperative. Skin: Warm and dry. No rashes noted. Objective Data Vital Signs Vital Signs: Vital Signs - 24 hr 02/09/24 08:20 02/09/24 13:46 02/09/24 14:00 Temperature 97.6 F Pulse Rate 81 85 Respiratory Rate 16 Blood Pressure 132/86 126/90 Pulse Oximetry 97 Oxygen Delivery Room Air 02/09/24 20:55 02/09/24 20:00 02/10/24 06:00 Temperature 98.6 F 98.8 F Pulse Rate 62 82 Respiratory Rate 20 20 Blood Pressure 136/89 134/9
[2024-02-10] MEDS: LOSARTAN POTASSIUM 100 MG TABLET PO (08:16)
[2024-02-10] MEDS: ENOXAPARIN 40 MG/0.4 ML SYRINGE SUB-Q (08:16)
[2024-02-10] MEDS: ACETAMINOPHEN 325 MG TABLET 650 MG PO ×2 (08:18→19:14)
--- NOTE | 2024-02-10 12:43 | WPDNEUROPN ---
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 He had numerous questions regarding his future and the insurance problems he is having with regard to getting approval for medications. I told her that we are trying our best to help. For now after the EMG we can evaluate him later on in February and make further decisions about course of treatment. I did discuss with him regarding plasmapheresis and steroids. Steroids are not so desirable in view of the side effects and to IVIG superior. Plasmapheresis is not available at this hospital. He can be referred to [facility] or [facility] neuromuscular Department however the waiting can be very long and given his age and stage he requires ongoing treatment and we should do our best to help him as before. He voices understanding of these issues. The predominant problem is the insurance companies giving hard time in this situation. Subjective Date/time seen: 02/10/24 12:43 Interval history: The patient is 39 years old with inflammatory polyneuropathy. He continues to feeling weak in the upper and lower limbs mostly in the hands and feet. He has difficulty in walking. He is on IVIG and should finish the course by Tuesday. He is also scheduled to have an EMG nerve study of the upper limbs on Tuesday. The patient has a numerous questions about his condition and worried about becoming independent again. He has a urinary tract infection after discharge from the hospital November. Was weak for about a week before he was admitted to the hospital around 11/20/2019 4. Bladder or bowel disturbance. No difficulty with speech or swallowing or vision. Review of Systems Review of Systems: All systems reviewed & are unremarkable except as noted in HPI and below Exam Narrative: Examination off mental status, memory and speech were within normal limits Cranial nerves on individual testing were intact Motor system weakness of both hands and feet were noted power grade 4/5. The patient was slightly worse in the feet compared to the hands. Deep tendon for this sensory absent. No additional new findings were noted. No involuntary were seen. Objective Data Vital Signs Vital Signs: Vital Signs - 24 hr 02/09/24 13:46 02/09/24 14:00 02/09/24 20:55 Temperature 36.4 C 37.0 C Pulse Rate 81 85 62 Respiratory Rate 16 20 Blood Pressure 132/86 126/90 136/89 Pulse Oximetry 97 100 Oxygen Delivery 02/09/24 20:00 02/10/24 06:00 02/10/24 08:17 Temperature 37.1 C Pulse Rate 82 Respiratory Rate 20 Blood Pressure 134/98 H Pulse Oximetry 100 Oxygen Delivery Room Air Room Air Intake/Output Intake/Output: Intake & Output 02/07/24 02/08/24 02/09/24 02/10/24 23:59 23:59 23:59 23:59 Intake Total 3214.5 1940 2990 1500 Output Total 800 1300 300 Balance 2414.5 640 2690 1500 Meds/Results Medications: Active Medications Generic Name Dose Route Start Last Admin Trade Name Freq PRN Reason Stop Dose Admin Acetaminophen 650 mg 02/06/24 21:51 02/10/24 08:18 Acetaminophen 325 Mg Tablet PO 650 mg Q6H PRN Administration Mild Pain (1-3) or Fever Enoxaparin Sodium 40 mg 02/07/24 09:00 02/10/24 08:16 Enoxaparin 40 Mg/0.4 Ml Syringe SUB-Q 40 mg DAILY DARIAN Administration Immune Globulin 40 gm/ Immune 430 mls @ 31.8 mls/hr 02/09/24 11:00 02/10/24 11:36 Globulin
[2024-02-10 14:00] VITALS: BP 141/94; PULSE 71; RESP 18; TEMP 37; O2SAT 100
[2024-02-10 21:23] VITALS: BP 134/88; PULSE 62; RESP 18; TEMP 36.8; O2SAT 100
[2024-02-11 04:45] VITALS: BP 138/72; PULSE 67; RESP 18; TEMP 36.8; O2SAT 100
[2024-02-11 05:29] LABS: Basophils Percent Auto 0.8 % (0.2-1.2); Eosinophils Absolute Auto 0.1 K/mm3 (0-0.3); Hematocrit 42.1 % (42.0-52.0); Hemoglobin 13.6 g/dL (14.0-18.0); Immature Granulocyte Absolute 0.01 K/mm3 (0.00-0.031); Immature Granulocyte Percent A 0.2 % (0-0.5); Lymphocytes Absolute Auto 1.55 K/mm3 (0.9-3.2); Lymphocytes Percent Auto 29.9 % (18.3-44.2); Mean Corpuscular HGB Conc 32.3 g/dl (32-36); Mean Corpuscular Hemoglobin 27.9 pg (26-34); Mean Corpuscular Volume 86.4 fl (80-100); Mean Platelet Volume 12.3 fl (7.4-10.4); Monocytes Absolute Auto 0.6 K/mm3 (0.1-0.6); Monocytes Percent Auto 11.8 % (2.6-8.5); Neutrophils Absolute Auto 2.9 K/mm3 (1.3-6.7); Neutrophils Percent Auto 56.3 % (45.5-73.1); Platelet Count Result 155 k/mm3 (150-375); Red Blood Count 4.87 M/mm3 (4.6-6.20); Red Cell Distribution Width 13.4 % (11.5-14.5); White Blood Count 5.2 K/mm3 (4.5-10.0)
[2024-02-11 05:40] LABS: Alanine Aminotransferase 47 U/L (6-50); Albumin Level 3.8 g/dL (3.5-5.1); Alkaline Phosphatase 68 U/L (38-126); Anion Gap 3 mmol/L (4-12); Aspartate Amino Transferase 38 U/L (17-59); Bilirubin,Total 0.8 mg/dL (0.2-1.3); Blood Urea Nitrogen 16 mg/dL (9-20); Calcium 9.2 mg/dL (8.4-10.2); Carbon Dioxide 26 mmol/L (22-30); Chloride 109 mmol/L (98-107); Estimated CRCL calculation 83 ml/min; Estimated Glomerular Filt Rate > 60; Glucose 91 mg/dL (65-110); Potassium 4.3 mmol/L (3.4-5.0); Sodium 138 mmol/L (137-145)
--- NOTE | 2024-02-11 06:40 | PM.IMPN ---
Progress Note: A&P Assessment and Plan (1) Chronic inflammatory demyelinating polyneuropathy: Code(s): G61.81 - Chronic inflammatory demyelinating polyneuritis Status: Acute Assessment and Plan: Patient presented for increased weakness of past several weeks. 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 Symptoms improved and patient was discharged home with plan to continue treatment outpatient however issues with insurances caused patient to not receive the therapy. He was doing well when he noticed worsening of his symptoms again near the end of December. He was seen by Neurology as an outpatient and Dr. Beltrán believed he was having a relapse. Dr. Beltrán referred patient to the ED for IVIG therapy for next [address] Beltrán recommends admission for IVIG treatment. He also plans for an EMG nerve study of upper and lower limbs outpatient. Neurology consulted. Per Dr. August patient will remain inpatient for IVIG x 5 days (started on 02/07) Initiate fall precautions. PT and OT ordered. Care coordination consulted for outpatient infusions (2) Hypertension: Code(s): I10 - Essential (primary) hypertension Status: Chronic Assessment and Plan: Chronic. Blood pressure stable on home medications. Continue home losartan at 100 mg daily. Monitor (3) Hyperlipidemia: Code(s): E78.5 - Hyperlipidemia, unspecified Status: Acute Assessment and Plan: Previously on atorvastatin. Discontinued by Dr. Beltrán on 01/18/24. 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 Patient is pleasant sitting up in his chair. He is in much higher spirits today compared to days past. He notes that he feels stronger and was able to do some of his PT exercises this morning, such as wall pushups and sit to stands. His physical exam continues to improve daily. He will finish his IVIG treatment tomorrow and plan is to discharge home with no needs. Review of Systems Review of Systems: All systems reviewed & are unremarkable except as noted in HPI and below Exam Narrative: AF HR 73 RR 16 SpO2 99 BP 134/86 General: male in no acute respiratory distress who is nontoxic appearing, sitting up in chair HEENT: Normocephalic. Atraumatic. Pupils equal round reactive to light. Extraocular movement intact. Sclera clear and anicteric. No facial asymmetry. Chest: Lungs are clear to auscultation bilaterally. No wheezes or crackles. CV: Heart was regular rate and rhythm. S1/S2. No murmurs, gallops, or rubs. Abd: Abdomen was soft. Nontender. Nondistended. Positive bowel sounds. No organomegaly or masses. Ext: No clubbing, cyanosis, or edema. 2+ DP pulses bilaterally. Neuro: Patient is alert and oriented x4. Strength is remains 4/5 but improving in upper and 5/5 lower extremities. 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 Weak dorsal/plantar flexion. Able to stand without assistance and maintain balance. Cranial nerves 2-12 are intact. Speech is clear. Psych: Depressed mood and affect. Patient is pleasant and cooperative. Skin: Warm and dry. No rashes noted. Objective Data Vital Signs Vital Signs: Vital Signs - 24 hr 02/10/24 08:17 02/10/24 14:00 02/10/24 20:00 Temperature 98.6 F Pulse Rate 71 Respiratory Rate 18 Blood Pressure 141/94 H Pulse Oximetry 100 Oxygen Delivery Room Air Room Air 02/10/24 21:23 02/11/24 04:45 Temperature 98.2 F 98.2 F Pulse Rate 62 67 Respiratory Rate 18 18 Blood Pressure 134/88 138/72 Pulse Oximetry 100 100 Oxygen Delivery Intake/Output Intake/Output: Intake & Output 02/08/24 02/09/24 02/10/24 02/11/24 23:59 23:59 23:59 23:59 Intake Total 1940 2990 2530 0 Output Total 1300 300 5
[2024-02-11] MEDS: LOSARTAN POTASSIUM 100 MG TABLET PO (08:50)
[2024-02-11] MEDS: ENOXAPARIN 40 MG/0.4 ML SYRINGE SUB-Q (08:50)
[2024-02-11 14:03] VITALS: BP 134/86; PULSE 73; RESP 16; TEMP 36.5; O2SAT 99
--- NOTE | 2024-02-11 15:31 | WPDNEUROPN ---
Subjective Date/time seen: 02/11/24 15:31 Interval history: 39 years old right-handed male receiving the IVIG with the diagnosis of chronic inflammatory demyelinating polyneuropathy with clinical presentation of the recurrence of the weakness of both upper ext lower extremity distally on today's visit patient manifest moderate improvement in his symptomatology and definitely feeling happy. Treatment will be continued as such as Dr. boyce mentioned for the further treatment in the future for the consideration of plasmapheresis and steroid or 2nd opinion that can be arranged as an outpatient at this stage we need to consider continue with the IVIG as he will require ongoing treatment. On examination today he was able to hold his both upper extremities overhead though still he has some difficulties in the hand grasp and and extension of the at the wrist same day he has some difficulties with the feet. Treatment is being continued as such Objective Data Vital Signs Vital Signs: Vital Signs - 24 hr 02/10/24 20:00 02/10/24 21:23 02/11/24 04:45 Temperature 36.8 C 36.8 C Pulse Rate 62 67 Respiratory Rate 18 18 Blood Pressure 134/88 138/72 Pulse Oximetry 100 100 Oxygen Delivery Room Air 02/11/24 14:03 Temperature 36.5 C Pulse Rate 73 Respiratory Rate 16 Blood Pressure 134/86 Pulse Oximetry 99 Oxygen Delivery Intake/Output Intake/Output: Intake & Output 02/08/24 02/09/24 02/10/24 02/11/24 23:59 23:59 23:59 23:59 Intake Total 1940 2990 2530 1480 Output Total 1300 300 550 Balance 640 2690 1980 1480 Meds/Results Medications: Active Medications Generic Name Dose Route Start Last Admin Trade Name Kenroyq PRN Reason Stop Dose Admin Acetaminophen 650 mg 02/06/24 21:51 02/10/24 19:14 Acetaminophen 325 Mg Tablet PO 650 mg Q6H PRN Administration Mild Pain (1-3) or Fever Enoxaparin Sodium 40 mg 02/07/24 09:00 02/11/24 08:50 Enoxaparin 40 Mg/0.4 Ml Syringe SUB-Q 40 mg DAILY DARIAN Administration Immune Globulin 40 gm/ Immune 430 mls @ 31.8 mls/hr 02/09/24 11:00 02/11/24 11:17 Globulin 3 gm/ N/A IVPB 02/13/24 00:32 31.8 mls/hr Q24H DARIAN Administration Protocol Losartan Potassium 100 mg 02/07/24 13:00 02/11/24 08:50 Losartan Potassium 100 Mg Tablet PO 100 mg QAM DARIAN Administration Labs Labs: Laboratory Results - last 24 hr 02/11/24 05:00 WBC 5.2 RBC 4.87 Hgb 13.6 L Hct 42.1 MCV 86.4 MCH 27.9 MCHC 32.3 RDW 13.4 Plt Count 155 MPV 12.3 H Immature Gran % (Auto) 0.2 Neut % (Auto) 56.3 Lymph % (Auto) 29.9 [place] % (Auto) 11.8 H Eos % (Auto) 1.0 Baso % (Auto) 0.8 Lymph # (Auto) 1.55 [place] # (Auto) 0.6 Eos # (Auto) 0.1 Baso # (Auto) 0.0 Abs Immat Gran (auto) 0.01 Absolute Neuts (auto) 2.9 Absolute Nucleated RBC 0.000 Nucleated RBC % 0.0 Sodium 138 Potassium 4.3 Chloride 109 H Carbon Dioxide 26 Anion Gap 3 L BUN 16 Creatinine 1.30 Estim Creat Clear Calc 83 Estimated GFR > 60 Glucose 91 Calcium 9.2 Total Bilirubin 0.8 AST 38 ALT 47 Alkaline Phosphatase 68 Total Protein 9.0 H Albumin 3.8
[2024-02-11 19:13] VITALS: BP 132/80; PULSE 71; RESP 20; TEMP 36.4; O2SAT 100
[2024-02-11] MEDS: ACETAMINOPHEN 325 MG TABLET 650 MG PO (20:20)
[2024-02-12 05:06] VITALS: BP 132/81; PULSE 59; RESP 18; TEMP 36.6; O2SAT 100
[2024-02-12 05:39] LABS: Basophils Percent Auto 0.6 % (0.2-1.2); Eosinophils Percent Auto 0.8 % (0-4.4); Hematocrit 42.8 % (42.0-52.0); Hemoglobin 13.6 g/dL (14.0-18.0); Lymphocytes Absolute Auto 1.55 K/mm3 (0.9-3.2); Lymphocytes Percent Auto 31.3 % (18.3-44.2); Mean Corpuscular HGB Conc 31.8 g/dl (32-36); Mean Corpuscular Hemoglobin 27.4 pg (26-34); Mean Corpuscular Volume 86.1 fl (80-100); Mean Platelet Volume 12.1 fl (7.4-10.4); Monocytes Absolute Auto 0.6 K/mm3 (0.1-0.6); Monocytes Percent Auto 11.7 % (2.6-8.5); Neutrophils Absolute Auto 2.8 K/mm3 (1.3-6.7); Neutrophils Percent Auto 55.6 % (45.5-73.1); Platelet Count Result 149 k/mm3 (150-375); Red Blood Count 4.97 M/mm3 (4.6-6.20); Red Cell Distribution Width 13.4 % (11.5-14.5)
[2024-02-12 05:59] LABS: Alanine Aminotransferase 54 U/L (6-50); Albumin Level 3.8 g/dL (3.5-5.1); Alkaline Phosphatase 66 U/L (38-126); Anion Gap 4 mmol/L (4-12); Aspartate Amino Transferase 43 U/L (17-59); Bilirubin,Total 0.7 mg/dL (0.2-1.3); Blood Urea Nitrogen 18 mg/dL (9-20); Calcium 9.2 mg/dL (8.4-10.2); Carbon Dioxide 28 mmol/L (22-30); Chloride 108 mmol/L (98-107); Estimated CRCL calculation 77 ml/min; Estimated Glomerular Filt Rate > 60; Glucose 85 mg/dL (65-110); Potassium 4.4 mmol/L (3.4-5.0); Sodium 140 mmol/L (137-145)
[2024-02-12] MEDS: ENOXAPARIN 40 MG/0.4 ML SYRINGE SUB-Q (08:48)
[2024-02-12] MEDS: LOSARTAN POTASSIUM 100 MG TABLET PO (08:48)
--- NOTE | 2024-02-12 12:06 | PM.DS ---
DS: Admitting Diagnosis Discharge Date 02/12/2024 Admitting Diagnosis Chronic inflammatory demyelinating polyneuropathy Hypertension Hyperlipidemia DS: Discharge Diagnosis Discharge Diagnosis (1) Chronic inflammatory demyelinating polyneuropathy: Code(s): G61.81 - Chronic inflammatory demyelinating polyneuritis Status: Acute (2) Hypertension: Code(s): I10 - Essential (primary) hypertension Status: Chronic (3) Hyperlipidemia: Code(s): E78.5 - Hyperlipidemia, unspecified Status: Acute DS: Summary Hospital Course Reason for hospitalization: Chronic inflammatory demyelinating polyneuropathy Hypertension Hyperlipidemia Hospital Course: 39-year-old male with hypertension, hyperlipidemia, and Guillain-[place] syndrome versus chronic inflammatory demyelinating polyneuropathy who presented to the emergency department for evaluation of weakness.?Recently treated in November 2023 for 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 Symptoms improved and patient was discharged home with plan to continue treatment outpatient however issues with insurances caused patient to not receive the therapy. He was doing well when he noticed worsening of his symptoms again near the end of December.? He was seen by Neurology as an outpatient and Dr. Beltrán believed he was having a relapse. Dr. Beltrán referred patient to the ED for IVIG therapy for next 5 days. Patient received full course of IVIG while in patient. During admission patients insurance agreed to continued IVIG therapy outpatient. Patient continues to have increased strength throughout his stay. Patient has an appointment with DR. Beltrán tomorrow for a nerve conduction study. Patient discharged home in a stable condition. He is to follow up with Dr. Beltrán tomorrow for a nerve conduction study and his PCP in 1 week. Status at Discharge Functional status at discharge: uses cane/walker Time Spent with Patient Time attestation: Total time spent providing and/or coordinating discharge services: Time spent: Greater than 30 minutes Exam Narrative: AF HR 73 RR 16 SpO2 99 BP 134/86 General: male in no acute respiratory distress who is nontoxic appearing, sitting up in chair HEENT: Normocephalic. Atraumatic. Pupils equal round reactive to light. Extraocular movement intact. Sclera clear and anicteric. No facial asymmetry. Chest: Lungs are clear to auscultation bilaterally. No wheezes or crackles. CV: Heart was regular rate and rhythm. S1/S2. No murmurs, gallops, or rubs. Abd: Abdomen was soft. Nontender. Nondistended. Positive bowel sounds. No organomegaly or masses. Ext: No clubbing, cyanosis, or edema. 2+ DP pulses bilaterally. Neuro: Patient is alert and oriented x4. Strength is remains 4/5 but improving in upper and 5/5 lower extremities. Improving direct support professional strength. Weak dorsal/plantar flexion. Able to stand without assistance and maintain balance. Ambulated short distances without walker. Cranial nerves 2-12 are intact. Speech is clear. Psych: Depressed mood and affect. Patient is pleasant and cooperative. Skin: Warm and dry. No rashes noted. DS: Data Data Completed and Pending Labs on day of discharge: Labs from last 24 hours 02/12/24 05:19 WBC 5.0 RBC 4.97 Hgb 13.6 L Hct 42.8 MCV 86.1 MCH 27.4 MCHC 31.8 L RDW 13.4 Plt Count 149 L MPV 12.1 H Immature Gran % (Auto) 0.0 Neut % (Auto) 55.6 Lymph % (Auto) 31.3 [place] % (Auto) 11.7 H Eos % (Auto) 0.8 Baso % (Auto) 0.6 Lymph # (Auto) 1.55 [place] # (Auto) 0.6 Eos # (Auto) 0.0 Baso # (Auto) 0.0 Abs Immat Gran (auto) 0.00 Absolute Neuts (auto) 2.8 Absolute Nucleated RBC 0.000 Nucleated RBC % 0.0 Sodium 140 Potassium 4.4 Chloride 108 H Carbon Dioxide 28 Anion Gap 4 BUN 18 Creatinine 1.40 H Estim Creat Clear Calc 77 Estimated GFR > 60 Glucose 85 Calcium 9.2 Total Bilirubin 0.7 AST 43 ALT 54 H Alkaline Phosphatase 66 Total Protein 9.0 H Albumin 3.8
== END 2024-02-12 15:08 | disposition home or self-care (01) | DRG 74 ==
LOC: ANHED 17:14 → ANH3MED 18:59
PROVIDERS: Internal Medicine Critical Care Medicine; Physician Assistant; Student in an Organized Health Care Education/Training Program; Admitting Provider Internal Medicine; Emergency Provider Student in an Organized Health Care Education/Training Program; PCP Internal Medicine; Visit Provider Internal Medicine
DX: G61.81 Chronic inflammatory demyelinating polyneuritis (principal); I10 Essential (primary) hypertension; E78.5 Hyperlipidemia, unspecified
CPT/HCPCS: 36415; 80048; 80053; 83735; 85025; 85027; 86140; 97110; 97116; 97161; 97165; 97530; 97535; 99285; A9270; J1459; J1650

== ENCOUNTER 2024-02-13 08:52 | Outpatient (CLI) | payer BC, SELFPAY ==
--- NOTE | 2024-02-13 11:00 | NEURO_ITS ---
Clinical note: Patient is 39 years old with history of weakness in both upper and lower limbs and difficulty in walking. His diagnosed to have acute demyelinating polyneuropathy in early November,. He continues to have weakness in both hands and feet and difficulty walking. He had partial improvement with the treatment. Summary of findings 1. Bilateral sural and right medial plantar sensory were absent 2. Left and right peroneal motor distal latencies were significantly prolonged, amplitudes are significantly decreased and conduction velocity from fibular head to ankle were significantly decreased. There is no focal slowing across the fibular head. Significant dispersion was noted in the proximal responses. Conduction block is anticipated but should be reviewed with caution in view of significant decreased amplitudes. 3. Left and right tibial motor distal latency was significantly prolonged and amplitude for significant decreased and conduction velocity were also significantly decreased. Significant dispersion was noted particular in the proximal responses. 4. Bilateral H reflexes were absent 5. EMG examination was performed using a monopolar needle electrode and various peripheral and related paraspinal muscles were examined. Denervation changes were seen in S1 distribution on both sides. Loss of motor unit recruitment was seen in both tibialis anterior and medial gastrocnemius as shown below. Mild denervation changes also seen paraspinal muscles. No myopathic changes were seen. 6. Temperature was maintained above 30? centigrade throughout the testing with attention to both feet and toes. Impression: 1) EMG and nerve study of both lower limbs are supportive diagnosis of severe demyelinating, length-dependent, sensorimotor polyneuropathy. Clinical correlation is recommended 2) There is also evidence for moderate subacute or chronic bilateral S1 radiculopathy and hence radiographic which should be considered. Please feel free to call me if you have any questions with regard to study. Gabriela Beltrán MD, FAAN, FAANEM Neurology /clinical Neurophysiology Nerve Conduction Studies Anti Sensory Summary Table Stim Site NR Onset (ms) Peak (ms) P-T Amp (?V) Site1 Site2 Delta-0 (ms) Dist (mm) Armin (m/s) Left Sural Anti Sensory (Lat Mall) NO RESPONSE Calf NR Calf Lat Mall 120 Right Sural Anti Sensory (Lat Mall) NO RESPONSE Calf NR Calf Lat Mall 120 Ortho Sensory Summary Table Stim Site NR Onset (ms) Peak (ms) P-T Amp (?V) Site1 Site2 Delta-P (ms) Dist (mm) Armin (m/s) Right Medial Plantar Ortho Sensory (Med Malleolus) NO RESPONSE Digit 1 NR Digit 1 Med Malleolus 130 Motor Summary Table Stim Site NR Onset (ms) O-P Amp (mV) Site1 Site2 Delta-0 (ms) Dist (mm) Armin (m/s) Left Fibular TA Motor (Tib Ant) Fib Head 7.0 1.2 Poplit Fib Head 6.8 85 12 Poplit 13.8 0.7 Right Fibular TA Motor (Tib Ant) Fib Head 7.0 0.4 Poplit Fib Head 2.5 90 36 Poplit 9.5 0.3 Left Peroneal Motor (Ext Dig Brev) Ankle 13.8 0.3 Ankle Ankle 0.0 70 B Fib 39.4 0.2 Ankle B Fib 25.6 340 13 Popit 42.2 0.1 B Fib Popit 2.8 85 30 Right Peroneal Motor (Ext Dig Brev) Ankle 13.5 0.6 Ankle Ankle 0.0 80 B Fib 27.5 0.1 Ankle B Fib 14.0 310 22 Popit 31.2 0.1 B Fib Popit 3.7 90 24 Left Tibial Motor (Abd Hammonds Brev) Ankle 24.7 0.4 Ankle Ankle 0.0 100 Knee 52.2 0.1 Ankle Knee 27.5 460 17 Right Tibial Motor (Abd Hammonds Brev) Ankle 15.8 0.4 Ankle Ankle 0.0 100 Knee 33.0 0.1 Ankle Knee 17.2 460 27 H Reflex Studies
== END 2024-02-13 08:53 | disposition home or self-care (01) ==
LOC: ANHNEURO 08:53
PROVIDERS: PCP Internal Medicine; Visit Provider Psychiatry & Neurology Neurology
DX: G61.0 Guillain-Barre syndrome (principal); G62.89 Other specified polyneuropathies; E11.9 Type 2 diabetes mellitus without complications; G61.81 Chronic inflammatory demyelinating polyneuritis
CPT/HCPCS: 95886; 95910

== ENCOUNTER 2024-02-23 08:34 | Outpatient (CLI) | payer BC, SELFPAY ==
--- NOTE | 2024-02-23 10:45 | NEURO_ITS ---
Clinical note: The patient has history of when bur syndrome with the ongoing weakness. He has had partial improvement since he has received 2 doses of IVIG. However continues to have some weakness in both upper lower limbs. Please refer to the EMG nerve can study of the lower limbs performed previously at this lab. Summary of findings: 1. Left and right radial sensory distal latencies for mildly prolonged and amplitudes were moderately decreased. Left median palmar and bilateral ulnar palmar sensory responses were absent wears a right median palmar sensory distal latency was significantly prolonged amplitude also significant decreased. 2. Left and right median motor distal latency was significantly prolonged and amplitudes are moderately decreased and conduction lasted also moderate to significantly decreased. 3. Left not ulnar motor distal latency was significantly prolonged And amplitude and conduction velocity moderately decreased. Further slowing of conduction across the elbow was noted on both sides. The motor responses appear dispersed. 4. bilateral median and ulnar F latencies were significantly prolonged. 5. EMG and nerve conduction study were performed in various muscles in C5-T1 distribution in both upper limbs. No denervation changes were seen. Mild loss of motor unit recruitment noted in the abductor pollicis brevis as shown below. Impression: EMG and nerve conduction study of both upper limbs are consistent with diagnosis of moderate demyelinating, length-dependent, sensory-motor polyneuropathy. Further clinical correlation is recommended. There is no supportive evidence for C5-T1 radiculopathy at this time. Please feel free to call me if any questions with regard to study. Gabriela Beltrán MD, FAAN, FAANEM Neurologist/ Electrodiagnostic Medicine Nerve Conduction Studies Anti Sensory Summary Table Stim Site NR Onset (ms) Peak (ms) P-T Amp (?V) Site1 Site2 Delta-0 (ms) Dist (mm) Armin (m/s) Left Radial Anti Sensory (Base 1st Digit) Wrist 1.9 2.4 9.3 Wrist Base 1st Digit 1.9 0 Right Radial Anti Sensory (Base 1st Digit) Wrist 1.8 2.4 19.8 Wrist Base 1st Digit 1.8 80 44 Motor Summary Table Stim Site NR Onset (ms) O-P Amp (mV) Site1 Site2 Delta-0 (ms) Dist (mm) Armin (m/s) Left Median Motor (Abd Poll Brev) Wrist 13.8 2.0 Wrist Wrist 0.0 80 Elbow 21.2 1.9 Wrist Elbow 7.4 240 32 ELB/ADM 24.1 1.7 Elbow ELB/ADM 2.9 75 26 Right Median Motor (Abd Poll Brev) Wrist 12.2 2.5 Wrist Wrist 0.0 80 Elbow 21.9 2.4 Wrist Elbow 9.7 250 26 Left Ulnar Motor (Abd Dig Minimi) Wrist 8.7 2.3 Wrist Wrist 0.0 80 B Elbow 15.2 1.4 B Elbow Wrist 6.5 240 37 A Elbow 19.9 1.1 A Elbow B Elbow 4.7 80 17 Right Ulnar Motor (Abd Dig Minimi) Wrist 6.1 3.6 Wrist Wrist 0.0 80 B Elbow 12.1 2.5 B Elbow Wrist 6.0 240 40 A Elbow 15.2 1.8 A Elbow B Elbow 3.1 80 26 Comparison Summary Table Stim Site NR Onset (ms) Peak (ms) P-T Amp (?V) Site1 Site2 Armin (m/s) Dist (mm) Left Median/Ulnar Palm Comparison (Wrist - 8cm) Median Palm NR Median Palm Wrist - 8cm 80 Ulnar Palm NR Ulnar Palm Wrist - 8cm 80 Right Median/Ulnar Palm Comparison (Wrist - 8cm) Median Palm 3.6 4.9 3.9 Median Palm Wrist - 8cm 16 80 Ulnar Palm NR Ulnar Palm Wrist - 8cm 80 F Wave Studies Min-F Max-F Dispersion Persistence Mean-F L-R Mean-F F/M Ratio F-M Lat (ms) Right Median (Curs) (Abd Poll Brev) 60.70 140.39 79.69 90.00 84.35 5.18 46.64 NR F-Lat (ms) L-R F-Lat (ms)
== END 2024-02-23 08:35 | disposition home or self-care (01) ==
LOC: ANHNEURO 08:34
PROVIDERS: PCP Internal Medicine; Visit Provider Psychiatry & Neurology Neurology
DX: G61.0 Guillain-Barre syndrome (principal); E11.9 Type 2 diabetes mellitus without complications; R94.131 Abnormal electromyogram [EMG]
CPT/HCPCS: 95886; 95911

== ENCOUNTER 2024-03-07 09:15 | Outpatient (RCR) | payer BC, SELFPAY ==
--- NOTE | 2023-12-12 15:25 | OPREHPOC ---
Outpatient Therapy Plan of Care This is a Multidisciplinary Plan of Care that may contain components documented by all disciplines (PT, OT, and ST.) PT Problem 1 PT Problem #1 Knowledge Deficit PT Goal 1 Goal 1. Patient will perform independent HEP Target Visit 3 PT Problem 2 PT Problem #2 Impaired Strength PT Goal 1 Goal 1. LE strength 5/5 in all planes to return to full function Target Visit 10 PT Problem 3 PT Problem #3 Impaired Balance PT Goal 1 Goal 1. Improve 5 time sit to stand to 12 seconds or less to decrease fall risk Target Visit 10 PT Problem 4 PT Problem #4 Impaired Gait PT Goal 1 Goal 1. Improve 2 minute walk test to at least 350 feet without walker Target Visit 10 PT Problem 5 PT Problem #5 Impaired Functional ADLs PT Goal 1 Goal 1. Patient able to return to all activities including driving and working Target Visit 10
--- NOTE | 2023-12-12 15:25 | PTOPEVAL1 ---
Assessment and note entered by Nancy Moreno DPT Evaluation Information Assessment Status Evaluation Subjective Information Pt reports he was diagnosed with Guillan-[place]. Was having tingling in his hands and feet back in October and difficulty walking, went to ER in November. Had a fall at home on November 20 then went back to ER, was admitted and kept for 11 days. Had ivIG treatment in the hospital. [facility] in [place]. Pt lives alone and has stairs to the basement but does not have to do them. One plus one step to get in to the house. Pt is not driving currently. Pt is using a walker in the community but not at home. Pt has been able to dress and bathe independently and do some cooking. He is not doing cleaning activities yet. Prior to diagnosis patient was completely independent and active, no walker. 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 He does report some continued fatigue with prolonged standing. Denies pain in his legs. Return to neuro is not scheduled currently Patient goal: regain strength, walk unassisted Reported Pain Level Pain Score 0: Self Report Assessment PT Clinical Summary The patient is presenting to skilled therapy with a diagnosis of Guillan-[place] and reports difficulty walking. He presents with decreased LE strength and decreased gait speed and balance which are contributing to his current walker use and difficulty with normal ADL's including cooking and difficulty with stairs. He will highly benefit from therapy to address these impairments in order to restore full function including returning to driving, working, and all ADL's. Plan of Care Interventions Gait Training,Manual Therapy,Neuro Re-education, Patient/Caregiver Education,Therapeutic Activities, Therapeutic Exercise PT Services Indicated Yes Treatment Frequency and 2 times a week for 10 visits Duration These treatments will address the objective and functional deficits as defined above. The patient will be advanced safely and appropriately in order for the patient to progress towards his/her prior level of function. Additional exercises will be introduced and as well as a comprehensive home exercise program upon discharge, if needed, ?to ensure carryover of functional gains achieved in the clinic. This treatment plan has been reviewed and agreement upon by the patient.
--- NOTE | 2023-12-15 12:30 | OTOPEVAL1 ---
Assessment and note entered by Iraj Toure, LETI/Chely, CHT Evaluation Information 12/15/23 Assessment Status Evaluation Subjective Information Pt reports he was diagnosed with Guillan-[place]. Was having tingling in his hands and feet back in October and difficulty walking, went to ER in November. Had a fall at home on November 20 then went back to ER, was admitted and kept for 11 days. Had ivIG treatment in the hospital. He went to [facility] in [place] ~7 days. Pt lives alone and has stairs to the basement but does not have to do them. Pt is not driving currently. Pt has been able to dress and bathe independently and do some cooking. He has resumed cleaning activities now. He is right handed and reports writing is difficult, reports he's at about 60% normal with his writing. Prior to diagnosis patient was completely independent and active, no walker. 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 This typically entails helping operate machinery. Not very manual labor/heavy lifting. Assessment OT Clinical Summary Patient referred to OT with dx of weakness. He presents with distal weakness that is impacting his fine motor skills with writing, typing, and gripping. Skilled OT indicated to maximize functional strength and coordination of BUEs to facilitate improved functional use for ADLs, household tasks, and work. Plan of Care Interventions Therapeutic Exercise,Neuro Re-education OT Services Indicated Yes Treatment Frequency and 2x/week for 8 visits Duration These treatments will address the objective and functional deficits as defined above. The patient will be advanced safely and appropriately in order for the patient to progress towards his/her prior level of function. Additional exercises will be introduced and as well as a comprehensive home exercise program upon discharge, if needed, ?to ensure carryover of functional gains achieved in the clinic. This treatment plan has been reviewed and agreement upon by the patient.
--- NOTE | 2023-12-15 12:30 | OPREHPOC ---
Outpatient Therapy Plan of Care This is a Multidisciplinary Plan of Care that may contain components documented by all disciplines (PT, OT, and ST.) PT Problem 1 PT Problem #1 Knowledge Deficit PT Goal 1 Goal 1. Patient will perform independent HEP Target Visit 3 PT Problem 2 PT Problem #2 Impaired Strength PT Goal 1 Goal 1. LE strength 5/5 in all planes to return to full function Target Visit 10 PT Problem 3 PT Problem #3 Impaired Balance PT Goal 1 Goal 1. Improve 5 time sit to stand to 12 seconds or less to decrease fall risk Target Visit 10 PT Problem 4 PT Problem #4 Impaired Gait PT Goal 1 Goal 1. Improve 2 minute walk test to at least 350 feet without walker Target Visit 10 PT Problem 5 PT Problem #5 Impaired Functional ADLs PT Goal 1 Goal 1. Patient able to return to all activities including driving and working Target Visit 10 OT Problem 1 OT Problem #1 Knowledge Deficit OT Goal 1 Goal 1. Patient to be independent with HEP. Target Visit 8 OT Problem 2 OT Problem #2 Impaired Strength OT Goal 1 Goal 1. Increase bilateral shoulder gross strength to 5 /5. 2. Increase bilateral elbow gross strength to 5/5. 3. Increase (R) wool presser strength to 70 lbs. 4. Increase (L) wool presser strength to 65 lbs. Target Visit 8 OT Problem 3 OT Problem #3 Impaired Coordination OT Goal 1 Goal 1. Be able to complete the 9-hole peg test with the right hand in 25 seconds. 2. Be able to complete the 9-hole peg test with the left hand in 30 seconds. Target Visit 8
--- NOTE | 2024-01-12 14:57 | OTOPDC ---
Assessment and note entered by Iraj Toure, OTR/Chely, CHT Evaluation Information Assessment Status Discharge Subjective Information Patient has been participating in OT x1 month. He reports functionally he is making good improvements. He is back to completing household tasks, such as cleaning and laundry, without deficits. He is reporting no issues with bathing and dressing. States his handwriting and typing skills have improved from 60% to 80% normal. He reports some residual tingling in the hands and feet that bothers him. He reports he experienced a set back last week after he tried to work out with more weight than usual. He reports in general he is feeling more weak than he was a month ago. MMT of the right UE remained unchanged, 4+/5 grossly at the shoulder and elbow. (R) generation mechanic helper strength decreased from 52 to 25 lbs. MMT of the left UE demonstrates a decline in strength 4/5 in the shoulder and elbow. (L) generation mechanic helper decreased from 55 to 18 lbs. Assessment OT Clinical Summary Patient referred to OT with dx of weakness. He has progressed to being independent with ADLs and household tasks. Reassessment today shows unchanged right UE strength. Left UE strength decreased from 4+/5 to 4/5. Bilateral generation mechanic helper strengths are also demonstrating a decline of 20+ lbs. each. Fine motor coordination, as measured by the 9-hole peg test, is WFL. At this time he is currently independent with HEP for UE strengthening. No further skilled OT indicated at this time. Plan of Care OT Services Indicated No
--- NOTE | 2024-01-16 13:21 | OPREHPOC ---
Outpatient Therapy Plan of Care This is a Multidisciplinary Plan of Care that may contain components documented by all disciplines (PT, OT, and ST.) PT Problem 1 PT Problem #1 Knowledge Deficit PT Goal 1 Goal 1. Patient will perform independent HEP Target Visit 3 Progress Met PT Problem 2 PT Problem #2 Impaired Strength PT Goal 1 Goal 1. LE strength 5/5 in all planes to return to full function Target Visit 20 Progress Partially Met PT Problem 3 PT Problem #3 Impaired Balance PT Goal 1 Goal 1. Improve 5 time sit to stand to 12 seconds or less to decrease fall risk Target Visit 20 Progress Not Met PT Problem 4 PT Problem #4 Impaired Gait PT Goal 1 Goal 1. Improve 2 minute walk test to at least 350 feet without walker Target Visit 20 Progress Partially Met Comment 1. 299 without walker PT Problem 5 PT Problem #5 Impaired Functional ADLs PT Goal 1 Goal 1. Patient able to return to all activities including driving and working Target Visit 20 Progress Partially Met Comment 1. driving, not working yet OT Problem 1 OT Problem #1 Knowledge Deficit OT Goal 1 Goal 1. Patient to be independent with HEP. ---OT D/C 01/12/24--- 1. Met Target Visit 8 OT Problem 2 OT Problem #2 Impaired Strength OT Goal 1 Goal 1. Increase bilateral shoulder gross strength to 5 /5. 2. Increase bilateral elbow gross strength to 5/5. 3. Increase (R) angle roll operator strength to 70 lbs. 4. Increase (L) angle roll operator strength to 65 lbs. ---OT D/C 01/12/24--- 1. Not met 2. Not met 3. Not met 4. Not met Target Visit 8
--- NOTE | 2024-01-16 13:21 | PTOPPROG ---
Assessment and note entered by Nancy Moreno DPT Evaluation Information Assessment Status Progress Subjective Information Pt reports overall he is feeling improvements with therapy and is now driving. Has not needed to use a walker for at least several weeks. Not back to work yet, sees neurologist and his PCP later this week. Is cooking and cleaning at home but is not yet doing yard work. Assessment PT Clinical Summary The patient has made good progress in therapy so far. He has not needed to use his walker in several weeks and has returned to driving and most cooking/cleaning activities at home. He demonstrates improved LE strength, gait speed, and stair navigation. He continues to lack full strength in all planes and demonstrates balance impairments and has not yet been able to return to work or perform yard work. He will highly benefit from continued therapy to address these impairments and restore full function. Plan of Care Interventions Electrical Stimulation,Gait Training,Hot Pack/Cold Pack,Manual Therapy,Neuro Re-education,Patient/ Caregiver Education,Therapeutic Activities, Therapeutic Exercise PT Services Indicated Yes Treatment Frequency and 1-2 times a week for 10 visits Duration These treatments will address the objective and functional deficits as defined above. The patient will be advanced safely and appropriately in order for the patient to progress towards his/her prior level of function. Additional exercises will be introduced and as well as a comprehensive home exercise program upon discharge, if needed, ?to ensure carryover of functional gains achieved in the clinic. This treatment plan has been reviewed and agreement upon by the patient.
--- NOTE | 2024-02-02 09:19 | OTOPEVAL1 ---
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 Returned to the doctor last week and it was recommended he resume OT due to relapse in his symptoms. Feeling increased weakness in the hands and feet. Reports he has stopped using his iron due to being unable to lift the iron. He reports he has started to lift with both hands when lifting something heavy. He continues to be able to do his ADLs, he just has to modify the tasks due to weakness. He has regressed to simple meal prep. Assessment OT Clinical Summary Patient referred to OT with dx of Guillain-[place] Syndrome. He participated in a month a therapy in December and was discharged with HEP as he was doing well. He unfortunately had a regression in strength and presents today to resume OT. 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 OT indicated to maximize functional strength and use of BUEs through therapeutic exercise and HEP instruction and progression. Plan of Care Interventions Therapeutic Exercise,Neuro Re-education OT Services Indicated No Treatment Frequency and 2x/week for 9 visits Duration These treatments will address the objective and functional deficits as defined above. The patient will be advanced safely and appropriately in order for the patient to progress towards his/her prior level of function. Additional exercises will be introduced and as well as a comprehensive home exercise program upon discharge, if needed, ?to ensure carryover of functional gains achieved in the clinic. This treatment plan has been reviewed and agreement upon by the patient.
--- NOTE | 2024-02-02 09:20 | OTOPEVAL1 ---
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 Returned to the doctor last week and it was recommended he resume OT due to relapse in his symptoms. Feeling increased weakness in the hands and feet. Reports he has stopped using his iron due to being unable to lift the iron. He reports he has started to lift with both hands when lifting something heavy. He continues to be able to do his ADLs, he just has to modify the tasks due to weakness. He has regressed to simple meal prep. 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 He participated in a month a therapy in December and was discharged with HEP as he was doing well. He unfortunately had a regression in strength and presents today to resume OT. 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 OT indicated to maximize functional strength and use of BUEs through therapeutic exercise and HEP instruction and progression. Plan of Care Interventions Therapeutic Exercise,Neuro Re-education OT Services Indicated Yes Treatment Frequency and 2x/week for 9 visits Duration These treatments will address the objective and functional deficits as defined above. The patient will be advanced safely and appropriately in order for the patient to progress towards his/her prior level of function. Additional exercises will be introduced and as well as a comprehensive home exercise program upon discharge, if needed, ?to ensure carryover of functional gains achieved in the clinic. This treatment plan has been reviewed and agreement upon by the patient.
--- NOTE | 2024-02-02 09:20 | OPREHPOC ---
Outpatient Therapy Plan of Care This is a Multidisciplinary Plan of Care that may contain components documented by all disciplines (PT, OT, and ST.) PT Problem 1 PT Problem #1 Knowledge Deficit PT Goal 1 Goal 1. Patient will perform independent HEP Target Visit 3 Progress Met PT Problem 2 PT Problem #2 Impaired Strength PT Goal 1 Goal 1. LE strength 5/5 in all planes to return to full function Target Visit 20 Progress Partially Met PT Problem 3 PT Problem #3 Impaired Balance PT Goal 1 Goal 1. Improve 5 time sit to stand to 12 seconds or less to decrease fall risk Target Visit 20 Progress Not Met PT Problem 4 PT Problem #4 Impaired Gait PT Goal 1 Goal 1. Improve 2 minute walk test to at least 350 feet without walker Target Visit 20 Progress Partially Met PT Problem 5 PT Problem #5 Impaired Functional ADLs PT Goal 1 Goal 1. Patient able to return to all activities including driving and working Target Visit 20 Progress Partially Met OT Problem 1 OT Problem #1 Knowledge Deficit OT Goal 1 Goal 1. Patient to be independent with HEP. Target Visit 9 OT Problem 2 OT Problem #2 Impaired Strength OT Goal 1 Goal 1. Increase bilateral shoulder gross strength to 4 +/5. 2. Increase bilateral elbow gross strength to 4+/5 . 3. Increase (R) public administration teacher strength to 30 lbs. 4. Increase (L) public administration teacher strength to 20 lbs. Target Visit 9 OT Problem 3 OT Problem #3 Impaired Coordination OT Goal 1 Goal 1. Be able to complete the 9-hole peg test with the right hand in 25 seconds. 2. Be able to complete the 9-hole peg test with the left hand in 30 seconds. Target Visit 9
--- NOTE | 2024-02-07 09:30 | PCPTNOTE ---
Patient canceled appointment this date due to recent hospitalization.
--- NOTE | 2024-02-15 13:49 | OPREHPOC ---
Outpatient Therapy Plan of Care This is a Multidisciplinary Plan of Care that may contain components documented by all disciplines (PT, OT, and ST.) PT Problem 1 PT Problem #1 Knowledge Deficit PT Goal 1 Goal 1. Patient will perform independent HEP Target Visit 3 Progress Met PT Problem 2 PT Problem #2 Impaired Strength PT Goal 1 Goal 1. LE strength 5/5 in all planes to return to full function Target Visit 22 Progress Partially Met PT Problem 3 PT Problem #3 Impaired Balance PT Goal 1 Goal 1. Improve 5 time sit to stand to 12 seconds or less to decrease fall risk Target Visit 22 Progress Partially Met Comment improved to 19 PT Problem 4 PT Problem #4 Impaired Gait PT Goal 1 Goal 1. Improve 2 minute walk test to at least 350 feet without walker Target Visit 22 Progress Partially Met Comment 1. 306 without walker PT Problem 5 PT Problem #5 Impaired Functional ADLs PT Goal 1 Goal 1. Patient able to return to all activities including driving and working Target Visit 22 Progress Partially Met Comment 1. driving, not working yet OT Problem 1 OT Problem #1 Knowledge Deficit OT Goal 1 Goal 1. Patient to be independent with HEP. Target Visit 9 OT Problem 2 OT Problem #2 Impaired Strength OT Goal 1 Goal 1. Increase bilateral shoulder gross strength to 4 +/5. 2. Increase bilateral elbow gross strength to 4+/5 . 3. Increase (R) card grinder strength to 30 lbs. 4. Increase (L) card grinder strength to 20 lbs. Target Visit 9 OT Problem 3 OT Problem #3 Impaired Coordination OT Goal 1 Goal 1. Be able to complete the 9-hole peg test with the right hand in 25 seconds.
--- NOTE | 2024-02-15 13:49 | PTOPPROG ---
Assessment and note entered by Nancy Moreno DPT Evaluation Information Assessment Status Progress Subjective Information Pt has recently be re-admitted to the hospital due to a relapse and was released again 3 days again. Had ivIG infusion and will be getting more as an OP going forward. Pt states he has not tried to go downstairs yet since going back home. Was able to get in/out of his house using his cane. Has been able to do some activities like cooking and cleaning but not yet performing yard work, lifting anything heavy, has not gone back to work. Pt drove today for the first time. Dressing and bathing independently. Has been noticing some L LE pain, thinks it is neuropathy. Highest pain 3/10 and lowest 0/10. Pain gets worse with sitting or laying down. Pt diagnosis is currently GBS vs CIPD. Assessment PT Clinical Summary The patient is presenting to skilled therapy after recent hospitalization of a relapse (GBS vs CIPD) . He reports he continues to have difficulty doing heavy activity at home including yard work and has not yet returned to work. He demonstrates improved gait speed and time on 5 time sit to stand compared to last reassessment but demonstrates decreased hip abduction strength and continues to demonstrate stair and gait impairments. These impairments are contributing to his difficulty returning to full function and will benefit from further therapy to improve balance, strength, safety, and independence. Plan of Care Interventions Electrical Stimulation,Gait Training,Hot Pack/Cold Pack,Manual Therapy,Neuro Re-education,Patient/ Caregiver Education,Therapeutic Activities, Therapeutic Exercise PT Services Indicated Yes Treatment Frequency and 1 time a week for 6 visits Duration These treatments will address the objective and functional deficits as defined above. The patient will be advanced safely and appropriately in order for the patient to progress towards his/her prior level of function. Additional exercises will be introduced and as well as a comprehensive home exercise program upon discharge, if needed, ?to ensure carryover of functional gains achieved in the clinic. This treatment plan has been reviewed and agreement upon by the patient.
--- NOTE | 2024-02-16 15:13 | OTOPDC ---
Assessment and note entered by Iraj Toure, OTGokul/Chely, CHT OT Discharge Notification 02/16/24 Diagnosis Guillain-[place] Syndrome Subjective Information Pt has recently be re-admitted to the hospital due to a relapse. Had ivIG infusion and will be getting more as an OP going forward. He reports since receiving the infusion he has noticed he is feeling stronger. He has been able to progress his exercises and has been using his stronger putty at home and that it's easier. He is able to lift is iron now. He has been able to lift heavier objects without his wrists flexing. He has been able to return to cooking. He is very happy with his progress since the recent infusion. Assessment OT Clinical Summary Patient referred to OT with dx of Guillain-[place] Syndrome. He was hospitalized about 2 weeks ago for a relapse in his symptoms. Since receiving another round of ivIG in the hospital, Anton's strength has returned. He demonstrates 4+/5 to 5/5 gross upper body strength. (R) supervisor grips improved from 18 to 55 lbs. (L) supervisor grips improved from 8 to 50 lbs. Fine motor coordination improved to normal limits. Reviewed HEP with patient and he completes independently. Upgraded to the next resistive theraputty. At this time we are discharging OT with patient independent in all materials. Patient is in agreement with this plan. Plan of Care OT Services Indicated No
--- NOTE | 2024-03-07 09:46 | OPREHPOC ---
Outpatient Therapy Plan of Care This is a Multidisciplinary Plan of Care that may contain components documented by all disciplines (PT, OT, and ST.) PT Problem 1 PT Problem #1 Knowledge Deficit PT Goal 1 Goal 1. Patient will perform independent HEP Target Visit 3 Progress Met PT Problem 2 PT Problem #2 Impaired Strength PT Goal 1 Goal 1. LE strength 5/5 in all planes to return to full function Target Visit 22 Progress Partially Met Comment hip abduction and extension 4+/5 PT Problem 3 PT Problem #3 Impaired Balance PT Goal 1 Goal 1. Improve 5 time sit to stand to 12 seconds or less to decrease fall risk Target Visit 22 Progress Met PT Problem 4 PT Problem #4 Impaired Gait PT Goal 1 Goal 1. Improve 2 minute walk test to at least 350 feet without walker Target Visit 22 Progress Met PT Problem 5 PT Problem #5 Impaired Functional ADLs PT Goal 1 Goal 1. Patient able to return to all activities including driving and working Target Visit 22 Progress Met OT Problem 1 OT Problem #1 Knowledge Deficit OT Goal 1 Goal 1. Patient to be independent with HEP. ---OT D/C 02/16/24--- 1. Met Target Visit 9 OT Problem 2 OT Problem #2 Impaired Strength OT Goal 1 Goal 1. Increase bilateral shoulder gross strength to 4 +/5. 2. Increase bilateral elbow gross strength to 4+/5 . 3. Increase (R) pan shaker strength to 30 lbs. 4. Increase (L) pan shaker strength to 20 lbs. ---OT D/C 02/16/24--- 1. Met 2. Met 3. Met 4. Met Target Visit 9
--- NOTE | 2024-03-07 09:47 | PTOPDC ---
Assessment and note entered by Nancy Moreno DPT Evaluation Information Assessment Status Discharge Subjective Information Pt has been able to return to work and did a call out last night. Has been doing local driving without an issue. Noticing minimal neuropathy if he is stationary, highest 10/22. Has been doing all ADL's independently again except yard work but plans to try that this weekend. Reported Pain Level Pain Score 0: Self Report Assessment PT Clinical Summary The patient has made excellent progress in therapy . He has recently returned to work and has been able to do most activities at home except yard work. He has been driving and navigating stairs without difficulty. He reports only minimal pain in his legs, and he demonstrates improved LE strength, improved gait speed, and decreased fall risk on the 5 time sit to stand test. Due to his progress and visit limit for the calendar year, plan for discharge this date. He has been educated in a thorough HEP and to follow up with MD and/or PT as needed. Plan of Care PT Services Indicated No
== END 2024-03-07 10:56 | disposition home or self-care (01) ==
LOC: ANHGOSHPT 09:15
PROVIDERS: PCP Physician Assistant
DX: M47.816 Spondylosis without myelopathy or radiculopathy, lumbar region (principal); M47.892 Other spondylosis, cervical region; M62.81 Muscle weakness (generalized); R26.89 Other abnormalities of gait and mobility
CPT/HCPCS: 97110; 97112; 97140; 97161; 97165; 97530

== ENCOUNTER 2024-07-12 09:45 | Outpatient (CLI) | payer BC, SELFPAY ==
[2024-07-12 18:40] LABS: Basophils Percent Auto 0.6 % (0.2-1.2); Eosinophils Percent Auto 0.4 % (0-4.4); Hematocrit 46.2 % (42.0-52.0); Hemoglobin 14.9 g/dL (14.0-18.0); Immature Granulocyte Absolute 0.01 K/mm3 (0.00-0.031); Immature Granulocyte Percent A 0.1 % (0-0.5); Lymphocytes Absolute Auto 1.49 K/mm3 (0.9-3.2); Lymphocytes Percent Auto 20.9 % (18.3-44.2); Mean Corpuscular HGB Conc 32.3 g/dl (32-36); Mean Corpuscular Hemoglobin 27.5 pg (26-34); Mean Corpuscular Volume 85.4 fl (80-100); Mean Platelet Volume 12.9 fl (7.4-10.4); Monocytes Absolute Auto 0.6 K/mm3 (0.1-0.6); Platelet Count Result 145 k/mm3 (150-375); Red Blood Count 5.41 M/mm3 (4.6-6.20); Red Cell Distribution Width 13.8 % (11.5-14.5); White Blood Count 7.1 K/mm3 (4.5-10.0)
[2024-07-12 18:49] LABS: Alanine Aminotransferase 27 U/L (6-50); Alkaline Phosphatase 82 U/L (38-126); Anion Gap 7 mmol/L (4-12); Aspartate Amino Transferase 42 U/L (17-59); Bilirubin,Total 0.7 mg/dL (0.2-1.3); Blood Urea Nitrogen 17 mg/dL (9-20); Calcium 9.2 mg/dL (8.4-10.2); Carbon Dioxide 29 mmol/L (22-30); Chloride 105 mmol/L (98-107); Estimated Glomerular Filt Rate > 60; Glucose 82 mg/dL (65-110); Potassium 4.8 mmol/L (3.4-5.0); Sodium 141 mmol/L (137-145)
[2024-07-15 16:39] LABS: Vitamin D 1,25 (OH)2 Total 43 pg/mL (18-72); Vitamin D2 1,25 (OH)2 <8 pg/mL; Vitamin D3 1,25 (OH)2 43 pg/mL
[2024-07-16 18:29] LABS: Red Blood Cell Folate 514 ng/mL RBC (>280)
[2024-07-17 03:03] LABS: Methylmalonic Acid 189 nmol/L (55-335)
== END 2024-07-12 09:46 | disposition home or self-care (01) ==
LOC: ANHGOSHLAB 09:47
PROVIDERS: PCP Internal Medicine; Visit Provider Psychiatry & Neurology Neurology
DX: G61.81 Chronic inflammatory demyelinating polyneuritis (principal); E55.9 Vitamin D deficiency, unspecified
CPT/HCPCS: 36415; 80053; 82607; 82652; 82747; 83921; 85025

== ENCOUNTER 2025-04-15 16:46 | Emergency (ER) | payer BC, SELFPAY ==
[2025-04-15 16:54] VITALS: BP 164/102; PULSE 64; RESP 18; TEMP 36.3; O2SAT 100
[2025-04-15 17:05] LABS: EDUAAPPEAR Clear; EDUABILI Negative (Negative); EDUABLOOD 1+ (Negative); EDUACOLOR1 Yellow; EDUAGLUCOSE Negative (Negative); EDUAKETONE Negative (Negative); EDUALEUKO Negative (Negative); EDUANITRATE Negative (Negative); EDUAPH 6.0; EDUAPROTEIN Negative (Negative); EDUASPGRAVITY 1.015; EDUAUROBILI 0.2
--- NOTE | 2025-04-15 17:25 | ED_ITS ---
HPI - Male Genitourinary General Chief complaint: Urogenital-Male Stated complaint: Uti Symptoms Time Seen by Provider: 04/15/25 17:25 Source: patient, RN notes reviewed and old records reviewed Mode of arrival: ambulatory Limitations: no limitations History of Present Illness HPI Narrative: 40-year-old male presents with concerns for a UTI. Patient reports pressure, feeling like he cannot empty his bladder. Denies any burning with urination. Denies any concerns for STIs. Denies abdominal pain, fevers, back pain. States that he did have a UTI after having a catheter a year ago. Related Data Home Medications ?Medication ?Instructions ?Recorded ?Confirmed ?Last Taken ?Type losartan 100 tablet PO DAILY 09/04/24 Unknown History mg-hydrochlorothiazide 25 mg tablet Allergies Allergy/AdvReac Type Severity Reaction Status Date / Time No Known Allergies Allergy Verified 04/15/25 17:50 Review of Systems Review of Systems: All systems reviewed & are unremarkable except as noted in HPI and below Constitutional: Constitutional: Reports no additional constitutional complaints Genitourinary: Genitourinary: Reports as per HPI Musculoskeletal: Musculoskeletal: Reports no additional musculoskeletal complaints Integumentary/Breasts: Skin/Breast: Reports system reviewed and no additional complaints, except as docu PMFSH Past Medical History Medical History 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 Code status: Full code. Smoking status: Never smoker Alcohol intake: current Drinks per week: 1 Alcohol use details: occasionally Substance use: never Substance use type: does not use Do You Feel Safe in your Home?: Yes Lack of Transportation: No Lack of Food: Never True Current Housing: I Have Housing Concerned About Future Housing: No Difficulty Paying Gas/Electric Bills: No Difficulty Paying for Meds: No Currently Unemployed: No Education: Bachelor's Degree Difficulty w/ Childcare or Family Care: No Additional living arrangements comments: Lives in [place]. Additional occupation/education comments: Works for [employer]. Spiritual care concerns: No Comments At the time of my signature, I reviewed and agree with the nursing past medical, surgical, social, and family history. There is no relevant family history pertinent to the patient complaint. Exam Const: General: cooperative, healthy appearing, comfortable, no acute distress, well developed, alert and well nourished Nutritional Appearance: well nourished Orientation/consciousness: patient oriented x3 Limitations: no limitations HENMT: Head: normal to inspection Eyes: General: appearance normal, both eyes and all related structures Alignment and Position: alignment normal Neck: Neck: normal visual inspection, full ROM, no lymphadenopathy and no meningeal signs Chest: Chest palpation & inspection: normal inspection of the chest Resp: Effort & Inspection: normal respiratory effort and able to speak in complete sentences Auscultation: clear to auscultation bilaterally, no crackles, no rales, no rhonchi and no wheezes Cardio: Rate: regular rate GI: GI Palp: No abdominal tenderness : General: Yes no CVA tenderness Skin: General skin exam: normal color and no rashes or lesions noted Neuro: General: patient oriented x3, gait normal, moves all extremities and no meningeal signs Cognition (Neuro): normal cognition Speech: normal speech Gait exam (Neuro): Normal gait present Extrem: General: normal to inspection, full ROM, capillary refill normal and normal gait Psych: Appearance: grossly normal and well kempt Mental Status: mental status grossly normal Speech and movement: Normal speech and movement present and Clear speech present Affect: normal affect Attitude: cooperative Course Course Level of Care: Express Care Visit Vital Signs Vital signs: Vital Signs Temperature 97.3 F L 04/15/25 16:54 Pulse Rate 64 04/15/25 16:54 Respiratory Rate 18 04/15/25 16:54 Blood Pressure 164/102 H 04/15/25 16:54 Pulse Oximetry 100 04/15/25 16:54 Oxygen Delivery Room Air 04/15/25 16:54 Temperature 97.3 F L 04/15/25 16:54 Pulse Rate 64 04/15/25 16:54 Respiratory Rate 18 04/15/25 16:54 Blood Pressure 164/102 H 04/15/25 16:54 Pulse Oximetry 100 04/15/25 16:54 Oxygen Delivery Room Air 04/15/25 16:54 Reviewed MDM - Male Genitourinary MDM Narrative Medical decision making narrative: Patient sitting in exam room. Patient is nontoxic, vitals stable. Patient's blood pressure is elevated. Patient reports that he has not taken his blood pressure medication. Patient's urine dip does not show signs of infection, will culture due to patient's history Discussed other causes of his symptoms could be from prostate to kidney issues Patient appropriate for outpatient treatment with close follow-up Discharge instructions reviewed with patient, as well as provided in writing per nursing staff. The instructions also include specific and strict return/GO TO THE ER as well as f/u information. All questions have been answered, and the patient deny any further questions with discharge and discharge plan. Some parts of this dictation were generated by voice recognition software and may contain typographical and/or grammatical inaccuracies. Differential Diagnosis Differential diagnosis: Likely urinary tract infection, urethritis and acute retention of urine Lab Data Labs: Lab Results 04/15/25 Range/Units 17:03 POC Urine Color Yellow POC Urine Clarity Clear POC Urine pH 6.0 POC Ur Specif [place] 1.015 POC Urine Protein Negative (Negative) POC Ur Glucose (UA) Negative (Negative) POC Urine Ketones Negative (Negative) POC Urine Blood 1+ (Negative) POC Urine Nitrite Negative (Negative) POC Urine Bilirubin Negative (Negative) POC Urine Urobilinogen 0.2 POC U Leukocyte Esteras Negative (Negative) Critical Care Time Critical Care Time Critical Care Time: No Discharge Plan Discharge Clinical Impression: Dysuria, Elevated blood pressure reading Patient Disposition: Home Condition: Stable Instructions: Antibiotic Form, Dysuria (ED) Additional Instructions: Increased water intake Take Tylenol as needed for pain Today your urine dip did not show a UTI. Your urine will be sent to our lab for a culture. If at that time a bacteria grows that is not covered by the antibiotic prescribed you will be notified. Follow-up with primary care for a blood pressure check. Today your blood pressure was 164/102. For new or worsening symptoms go directly to the emergency room Patient Language: Sinhala Prescriptions: No Action losartan-hydrochlorothiazide 100-25 mg tablet PO DAILY Follow-up/Referrals: Shady Su MD [Primary Care Provider] - Stand Alone Forms: Work/School Release IP Time of Disposition: 17:37
== END 2025-04-15 17:38 | disposition home or self-care (01) ==
PROVIDERS: Emergency Provider Nurse Practitioner; PCP Internal Medicine
DX: R30.0 Dysuria (principal); I10 Essential (primary) hypertension; E78.5 Hyperlipidemia, unspecified; G61.0 Guillain-Barre syndrome; G61.81 Chronic inflammatory demyelinating polyneuritis
CPT/HCPCS: 81003; 87086; 99213; G0463